=== PATIENT | male | born 1955 | race Caucasian/White ===

== ENCOUNTER 2025-09-08 09:54 | Outpatient (REF) | payer MEDICARE, SELFPAY ==
[2025-09-08 12:49] LABS: Carbamazepine Tegretol 11.4 mcg/mL (5.0-12.0)
[2025-09-11 11:03] LABS: Arsenic, Blood <3 mcg/L (<23); Lead, Blood <1.0 mcg/dL (<3.5); Mercury, Blood <4 mcg/L (<=10)
== END 2025-09-08 09:55 | disposition home or self-care (01) ==
LOC: HO.LAB 09:54
PROVIDERS: PCP Internal Medicine; Visit Provider Nurse Practitioner
DX: G40.909 Epilepsy, unspecified, not intractable, without status epilepticus (principal); R26.89 Other abnormalities of gait and mobility; R41.3 Other amnesia; W19.XXXA Unspecified fall, initial encounter
CPT/HCPCS: 36415; 80156; 82175; 83655; 83825; 99212

== ENCOUNTER 2025-09-08 09:54 | Outpatient (AMB) | payer MEDICARE, SELFPAY ==
--- NOTE | 2025-09-08 10:04 | A.OFFVIS_ITS ---
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 I was previously following him at [facility] for several neurological concerns. His primary concerns had included memory difficulties, brief staring episodes, dizziness, difficulty with the balance, urinary incontinence, memory changes, and decreased physical stamina. Memory: Overall, this is his most pressing concern. He notes that over the course of the last 1-2 years he has noticed a decline in his memory. He gives examples of forgetting his grandchildren's names from time to time and difficulty with planning, initiating a task, or problem solving. His has also noticed some changes in behavior with Ronnie becoming more agitated much quicker. 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 He has been using his CPAP nightly and overall reports that his sleep is generally pretty good. He does have an upcoming appointment with the memory clinic at [facility] on 12/16/2024. Balance: Reports some difficulty with balance and has had some falls within the last few months. He denies tripping on things but more so loses his footing. He can sometimes feel a sense of wooziness. He does have history of some sensory deficits to the bilateral lower extremities though an EMG completed in November of 2023 showed no definite nerve conduction study evidence of a large fiber sensory motor polyneuropathy affecting the lower extremities. It was however difficult to exclude an axonal polyneuropathy in the setting of a bilateral absent superficial peroneal sensory response though findings can be age related. He continues to report some numbness and tingling to his feet and ankle area. Recent B12 was normal and recent A1c was within goal and patient is not diagnosis diabetic. Alcohol intake is only once per month. He does however work with several heavy metals which could play a role. He has not been tested for heavy metal exposures in the past. Seizures: He has not had any seizures since 2011. He is on carbamazepine 400 mg in the morning, 300 mg in the afternoon, and 400 mg in the evening. This was recently decreased from 400 mg t.i.d. due to some slightly elevated levels likely related to some weight loss. He tolerates medication well and has not had any further episodes of loss of consciousness, tonic-clonic movements, staring, or tongue biting during sleep. Prior workup: -B12 and TSH level from July 2025: Within normal limits -EMG study to the bilateral lower extremities November 2023: No definite nerve conduction study evidence of a large fiber sensory motor polyneuropathy affecting the lower extremities, although a very mild axonal polyneuropathy could not be completely excluded: Motor and sural sensory distal latencies and conduction velocities are within normal limits. (bilateral absent superficial peroneal sensory responses is a nondiagnostic finding and may represent expected age-related changes). -MRI of the brain without contrast 05/29/2023: No infarct or hemorrhage. Unremarkable MRI of the brain without contrast. -MRI of the cervical spine without contrast 06/28/2023: Multilevel degenerative changes greatest at C6 through C7 and C5 through C6. No abnormal signal within the cervical cord. -MRI of the lumbar spine without contrast 06/28/2023: Multilevel degenerative changes of the lumbar spine most pronounced at L3 through L4 and L5 through S1. Abnormal signal within the soft tissue surrounding L3 through L4 spinous processes as described which could be seen with Selden disease. Review of Systems Const All systems reviewed & are unremarkable except as noted in HPI and below Physical Exam Exam Exam: MOCA: MOCA total: Executive:02/01 Namin/3 Attention:04/04 Language:12/30 Abstraction:2 Delayed recall:01/01 Orientation:04/04 Vital Signs: Last Vital Signs Pulse 73 09/08/25 10:05 Resp 17 09/08/25 10:05 BP 162/90 H 09/08/25 10:05 Pulse Ox 97 09/08/25 10:05 Oxygen Delivery Method Room Air 09/08/25 10:05 BMI result Body Mass Index 33.3 Const General: cooperative, healthy appearing, comfortable and no acute distress Nutritional Appearance: well nourished Orientation/consciousness: patient oriented x3 Limitations: no limitations HEENT Head: Yes normal to inspection and Yes normocephalic Eyes General: appearance normal, both eyes and all related structures Visual Nava: normal visual nava by confrontation Alignment and Position: alignment normal Periorbital: periorbital findings normal Eyelids: Yes eyelids normal Conjunctivae: conjunctivae normal Sclerae: sclerae normal Neuro General: patient oriented x3 and tone normal Cranial nerves: Yes CN's II-XII intact bilaterally and Yes Facial sensation intact/muscles of mastication intact Cognition (Neuro): normal cognition Gait exam (Neuro): Antalgic gait present and Other gait observations present (Slight hunching of the hips) Motor exam (neuro): 5/5 motor strength present throughout and no tremor noted Sensory Exam: sensory level loss detected and Abnormal lower extremity sensory exam (BLE loss of vibratory sensation below level of the ankle) Deep tendon reflexes (DTR's): Right triceps reflex intensity grade: 2+, Left triceps reflex intensity grade: 2+, Rt Biceps (C5, C6): 2+, Left biceps reflex intensity grade: 2+, Right brachioradialis reflex intensity grade: 2+, Left brachioradialis reflex intensity grade: 2+, Right patellar reflex intensity grade: 3+, Left patellar reflex intensity grade: 3+, Right ankle reflex intensity grade: 3+ and Left ankle reflex intensity grade: 3+ Romberg Test: Negative Pupils: Normal pupillary reactivity/response: bilateral Psych Appearance: grossly normal Mental Status: mental status grossly normal Speech and movement: Normal speech and movement present and Clear speech present Affect: normal affect Attitude: cooperative Thought process: Normal thought process present Thought content: Normal thought content present Insight: Good insight present (Psych) Judgement: Good judgement present (Psych) Assessment & Plan Assessment & Plan (1) Memory change: Code(s): R41.3 - Other amnesia Category: Medical (2) Seizure disorder: Code(s): G40.909 - Epilepsy, unspecified, not intractable, without status epilepticus Category: Medical (3) Imbalance: Code(s): R26.89 - Other abnormalities of gait and mobility Category: Medical (4) Falls: Code(s): W19.XXXA - Unspecified fall, initial encounter Category: Medical Plan Ronnie is a 70-year-old male patient with a past medical history of generalized seizures, Britt's esophagus, gout, headaches, hypercholesterolemia, hypertension, nephrolithiasis, obesity, and sleep apnea with the use of a CPAP machine presenting to the clinic for a follow up visit and to reestablish care with myself. He has a few primary concerns including difficulty with memory and some imbalance. His seizures which we follow him for are well-controlled and his bladder concerns have completely resolved with a urological procedure (Uro Lift procedure). His primary concern is his memory today. We did perform a [place] score today which was . His B12 TSH levels were normal. We will proceed with an MRI of the brain with and without contrast as his father does have a history of brain tumor in his memory has been still further declining in his opinion. We will include contrast of the imaging to look for discrete lesions with his family history and seizure history provided his last MRI brain did no tinclude contrast. -MRI brain with and without contrast -Carbamazepine level -Follow-up after MRI -Emcouraged to keep appointment with memory clinic at [facility] for now Orders: Orders MR head/brain wo/w con 09/08/25 G40.909 - Epilepsy, unspecified, not intractable, without status epilepticus, R26.89 - Other abnormalities of gait and mobility, R41.3 - Other amnesia, W19.XXXA - Unspecified fall, initial encounter Carbamazepine Tegretol 09/08/25 G40.909 - Epilepsy, unspecified, not intractable, without status epilepticus, R26.89 - Other abnormalities of gait and mobility, R41.3 - Other amnesia, W19.XXXA - Unspecified fall, initial encounter Heavy Metals Screen Blood 09/08/25 G40.909 - Epilepsy, unspecified, not intractable, without status epilepticus, R26.89 - Other abnormalities of gait and mobility, R41.3 - Other amnesia, W19.XXXA - Unspecified fall, initial encounter Coding Level of Care Code Est Pt Level 4 (57983) Diagnoses Memory change R41.3 Seizure disorder G40.909 Imbalance R26.89 Falls W19.XXXA
[2025-09-08 10:05] VITALS: BP 162/90; PULSE 73; RESP 17; O2SAT 97; BMI 33.3
--- OUTSIDE RECORDS SUMMARY | 2025-09-08 11:22 | XMS_ITS ---
Author Name [facility] Organization Unknown History of Medication Use Medication Directions Dispensed Refills Start Date End Date Status EpiPen 2-Braxton 0.3 mg/0.3 mL injection, auto-injector Take 1 auto by injection route as needed. 5 active methylprednisolone 4 mg tablets in a dose pack Take 1 dose pk by oral route. 5 active oxybutynin chloride 5 mg tablet Take 1 tablet every 8 hours by oral route as needed. 5 active allopurinol 100 mg tablet TAKE 2 TABLETS BY MOUTH EVERY DAY 5 active aspirin 81 mg tablet,delayed release Take 81 mg by mouth daily. 4 active meclizine 25 mg tablet Take 1 tablet (25 mg total) by mouth 3 (three) times a day as needed. 3 active clotrimazole-betametha sone 1 %-0.05 % topical cream Apply to affected area 2 times daily 3 024 completed atenolol 25 mg tablet Take 1 tablet (25 mg total) by mouth daily. 3 023 completed molnupiravir 200 mg capsule (EUA) Take 4 capsules (800 mg total) by mouth every 12 (twelve) hours for 5 days. Swallow capsule whole. Do NOT open, break, or crush. 2 022 completed triamcinolone acetonide 0.1 %-emollient comb.no.45 topical cream Apply topically 2 (two) times a day. 1 022 completed epinephrine 0.3 mg/0.3 mL injection, auto-injector Inject 0.3 mL (0.3 mg total) into the muscle once for 1 dose. 1 021 completed warfarin 1 mg tablet Take 7 tabs daily or as directed by physician 7 020 completed atenolol 100 mg tablet TAKE 1 TABLET BY MOUTH EVERY DAY 025 active methylprednisolone 4 mg tablets in a dose pack TAKE DIRECTED 025 completed nystatin 100,000 unit/gram topical powder APPLY TO AFFECTED AREA DAILY 025 active carbamazepine ER 400 mg tablet,extended release,12 hr TAKE 1 TABLET BY MOUTH THREE TIMES A DAY 024 completed aspirin 81 mg chewable tablet Chew 81 mg by mouth. 024 completed amoxicillin 500 mg tablet TAKE 4 TABS ONE HOUR PRIOR TO DENTAL APPOINTMENT 024 completed atenolol 50 mg tablet TAKE 1 TABLET BY MOUTH EVERY DAY 023 completed celecoxib 200 mg capsule TAKE 1 TABLET BY MOUTH EVERY DAY 023 completed docusate sodium 100 mg capsule TAKE 1 CAPSULE BY MOUTH TWICE A DAY DIRECTED MEDICATION TO BE STARTED AFTER SURGERY 023 completed Eliquis 2.5 mg tablet TAKE 1 TABLET BY MOUTH TWO TIMES A DAY 023 completed hydromorphone 2 mg tablet TAKE 1 TO 2 TABLETS BY MOUTH EVERY 4 HOURS NEEDED FOR SEVERE PAIN 023 completed pantoprazole 40 mg tablet,delayed release 1R BY MOUTH EVERY DAY RX FOR AFTER SURGERY 023 completed sulconazole 1 % topical cream Apply TO affected AREA EVERY DAY FOR 2 WEEKS THEN NEEDED 023 completed lisinopril 20 mg tablet Take 20 mg by mouth daily. 023 completed allopurinol 100 mg tablet TAKE 2 TABLETS BY MOUTH EVERY DAY active amlodipine 10 mg tablet TAKE 1 TABLET BY MOUTH EVERY DAY active amlodipine 10 mg tablet TAKE 1 TABLET BY MOUTH EVERY DAY active amoxicillin 500 mg tablet TAKE 4 TABS ONE HOUR PRIOR TO DENTAL APPOINTMENT active atenolol 100 mg tablet TAKE 1 TABLET BY MOUTH EVERY DAY active carbamazepine 200 mg tablet TAKE 2 TABLET BY MOUTH 3 TIMES A DAY active carbamazepine 200 mg tablet TAKE 2 TABLET BY MOUTH 3 TIMES A DAY active cephalexin 500 mg capsule TAKE 1 CAPSULE BY MOUTH THREE TIMES A DAY FOR 3 DAYS active cephalexin 500 mg capsule TAKE 1 CAPSULE BY MOUTH THREE TIMES A DAY FOR 3 DAYS active epinephrine 0.3 mg/0.3 mL injection, auto-injector INJECT 1 PEN INTRAMUSCULARLY ONCE FOR 1 DOSE FOR ANAPHYLACTIC REACTION active losartan 25 mg tablet TAKE 1 TABLET BY MOUTH EVERY DAY active losartan 25 mg tablet TAKE 1 TABLET BY MOUTH EVERY DAY active losartan 50 mg tablet Take 1 tablet ever y day by oral route. active nystatin 100,000 unit/gram topical powder APPLY TO AFFECTED AREA DAILY active omeprazole 20 mg capsule,delayed release TAKE 1 CAPSULE BY MOUTH TWICE A DAY active omeprazole 20 mg capsule,delayed release active oxybutynin chloride 5 mg tablet TAKE 1 TABLET BY MOUTH EVERY 8 HOURS NEEDED active phenazopyridine 200 mg tablet TAKE 1 TABLET BY MOUTH THREE TIMES A DAY active phenazopyridine 200 mg tablet TAKE 1 TABLET BY MOUTH THREE TIMES A DAY active simvastatin 40 mg tablet TAKE 1 TABLET BY MOUTH EVERY DAY IN THE EVENING active simvastatin 40 mg tablet TAKE 1 TABLET BY MOUTH EVERY DAY IN THE EVENING active tamsulosin 0.4 mg capsule TAKE 1 CAPSULE BY MOUTH DAILY 30 MINUTES AFTER DINNER active tamsulosin 0.4 mg capsule TAKE 1 CAPSULE BY MOUTH DAILY 30 MINUTES AFTER DINNER active tramadol 50 mg tablet TAKE 1 TABLET BY MOUTH EVERY 6 HOURS NEEDED FOR 5 DAYS active tramadol 50 mg tablet TAKE 1 TABLET BY MOUTH EVERY 6 HOURS NEEDED FOR 5 DAYS active Allergies Allergen Reaction Severity Comment Documented Date Source Statu s CODEINE [facility] VENOM-HONEY BEE [facility] Problems Problem Status Onset Date Problem Type Date of Resolution Source Allergic reaction to bee sting active 2025-05-08 ProblemAct [facility] Hypertensive disorder active 2020-04-09 ProblemAct [facility] Body mass index 30+ - obesity active 2023-02-01 ProblemAct [facility] Calcific tendinitis of right ankle active 2024-01-18 ProblemAct [facility] Osteoarthritis of bilateral hip joints active 2022-09-29 ProblemAct [facility] Benign prostatic hyperplasia with outflow obstruction active 2024-12-31 ProblemAct [facility] Hypercholesterolemia active 2020-04-09 ProblemAct [facility] Seasonal allergy active 2025-05-05 ProblemAct C T[facility] Seizure disorder active 2012-04-09 ProblemAct C T_[facility] Barretts esophagus with dysplasia active 2020-04-09 ProblemAct [facility] Chronic gouty arthritis active 2020-04-09 ProblemAct [facility] Obstructive sleep apnea syndrome active 2020-04-09 ProblemAct [facility] Kidney stone active 2020-04-09 ProblemAct [facility] Prostate specific antigen above reference range active 2024-10-15 ProblemAct [facility] Incomplete emptying of urinary bladder active 2025-02-26 ProblemAct [facility] Kidney stone active 2025-04-04 ProblemAct [facility] Spasm of urinary bladder active 2025-02-17 ProblemAct [facility] Simple renal cyst active 2025-07-07 ProblemAct [facility] Benign prostatic hyperplasia with outflow obstruction active 2024-10-10 ProblemAct [facility] Urge incontinence of urine active 2025-04-04 ProblemAct [facility] Immunizations Vaccine Date Source Lot Number Status SARS-COV-2 (COVID-19) vaccin e, mRNA, spike protein, LNP, preservative free, 100 mcg/0.5mL dose 02/08/2021 [facility] completed SARS-COV-2 (COVID-19) vaccin e, mRNA, spike protein, LNP, preservative free, 100 mcg/0.5mL dose 02/08/2021 [facility] completed SARS-COV-2 (COVID-19) vaccin e, mRNA, spike protein, LNP, preservative free, 100 mcg/0.5mL dose 02/08/2021 [facility] completed SARS-COV-2 (COVID-19) vaccin e, mRNA, spike protein, LNP, preservative free, 100 mcg/0.5mL dose 01/08/2021 [facility] completed SARS-COV-2 (COVID-19) vaccin e, mRNA, spike protein, LNP, preservative free, 100 mcg/0.5mL dose 01/08/2021 [facility] completed SARS-COV-2 (COVID-19) vaccin e, mRNA, spike protein, LNP, preservative free, 100 mcg/0.5mL dose 01/08/2021 [facility] completed SARS-COV-2 (COVID-19) vaccin e, mRNA, spike protein, LNP, preservative free, 100 mcg/0.5mL dose 01/08/2021 [facility] completed tetanus toxoid, reduced diph theria toxoid, and acellular pertussis vaccine, adsorbed 12/22/2016 [facility] [id number] completed tetanus toxoid, reduced diph theria toxoid, and acellular pertussis vaccine, adsorbed 12/22/2016 [facility] [id number] completed tetanus toxoid, reduced diph theria toxoid, and acellular pertussis vaccine, adsorbed 12/22/2016 [facility] [id number] completed tetanus toxoid, reduced diph theria toxoid, and acellular pertussis vaccine, adsorbed 12/22/2016 [facility] [id number] completed zoster vaccine, live 12/22/2016 [facility] UNK comp leted zoster vaccine, live 12/22/2016 [facility] UNK comp leted zoster vaccine, live 12/22/2016 [facility] UNK comp leted pneumococcal polysaccharide vaccine, 23 valent 04/07/2012 [facility] [id number] completed pneumococcal polysaccharide vaccine, 23 valent 04/07/2012 [facility] [id number] completed pneumococcal polysaccharide vaccine, 23 valent 04/07/2012 [facility] [id number] completed pneumococcal polysaccharide vaccine, 23 valent 04/07/2012 [facility] [id number] completed diphtheria and tetanus toxoi ds, adsorbed for pediatric use 09/15/2007 [facility] UNK completed diphtheria and tetanus toxoi ds, adsorbed for pediatric use 09/15/2007 [facility] UNK completed diphtheria and tetanus toxoi ds, adsorbed for pediatric use 09/15/2007 [facility] UN[facility] completed diphtheria and tetanus toxoi ds, adsorbed for pediatric use 05/03/1998 [facility] completed diphtheria and tetanus toxoi ds, adsorbed for pediatric use 05/03/1998 [facility] UN[facility] completed diphtheria and tetanus toxoi ds, adsorbed for pediatric use 05/03/1998 [facility] UN[facility] completed diphtheria and tetanus toxoi ds, adsorbed for pediatric use 05/03/1998 [facility] UNK completed Encounters Encounter Type Encounter Reason Primary Diagnosis Location Date Ambulatory [facility] 07/08/2025 Ambulatory [facility] 07/08/2025 Ambulatory [facility] 03/31 Ambulatory [facility] 03/2025 Ambulatory [facility] 02/2025 Ambulatory [facility] 03/06/2025 Ambulatory [facility] 03/06/2025 Ambulatory [facility] 0412/2024 Ambulatory [facility] 01/29 [facility]ulatory [facility] [place] 12/29/2024 Ambulatory [facility] 12/01 Ambulatory [facility] 11/04/2024 Ambulatory [facility] 09/30 Ambulatory [facility] 09/29 Ambulatory [facility] 09/29 Ambulatory [facility] 09/29 Ambulatory [facility] 09/29 Ambulatory [facility] 09/29 Ambulatory [facility] 09/29 Ambulatory [facility] 09/29 Ambulatory [facility] 09/29 Ambulatory [facility] 08/31 Ambulatory [facility] 04/21/2024 Ambulatory [facility], [facility] 04/05/2024 Ambulatory [facility] 03/09/2024 Care Team Organization Name Specialty Phone Email Start Date End [facility] 11/08 [facility] 06/05/2024 [facility] 04/18/[address] [place] [address] [facility] 2022 06/17/2024
--- OUTSIDE RECORDS SUMMARY | 2025-09-08 11:22 | XMS_ITS | Clinical Summary ---
Author Organization [facility] Address [address] [place] [address] Care Team Providers Care School Bus Aide Name Role Phone Cresencio Barbosa MD Primary Care Provider [phone] Surgical History Surgery Date Site/Laterality Comments SHOULDER SURGERY PROCEDURE:SHOULDER SURGERY CHOLECYSTECTOMY PROCEDURE:CHOLECYSTECTOMY JOINT REPLACEMENT PROCEDURE:JOINT REPLACEMENT OTHER SURGICAL HISTORY PROCEDURE:2018 OTHER SURGICAL HISTORY 2018 PROCEDURE:Coronary angioplasty ( Negative ) Medical History Medical History Date Comments Hypertension DX:Hypertension Gout DX:Gout Apnea DX:Apnea High cholesterol DX:High cholest jose alberto Seizures (CMS/HCC V24, CMS/HCC V28) DX:Seizures (HCC) Sleep apnea DX:Sleep apnea Obesity DX:Obesity Family History Medical History Relation Name Comments Diabetes Brother Heart disease Brother Hypertension Brother Cancer Father Diabetes Mother Relation Name Status Comments Brother Father Mother Social History Tobacco Use Types Packs/Day Years Used Date Smoking Tobacco: Never Smokeless Tobacco: Never Alcohol Use Standard Drinks/Week Comments Yes 0 (1 standard drink = 0.6 oz pur e alcohol) Sex and Gender Information Value Date Recorded Sex Assigned at Not on file Legal Sex Male 12:00 PM EST Gender Identity Not on file Sexual Orientation Not on file Obstetrics History Last Filed Vital Signs Vital Sign Reading Time Taken Comments Blood Pressure 154/80 02/01/2023 1:50 PM EDT Sitting Left arm Pulse 67 02/01/2023 1:50 PM EDT Temperature - - Respiratory Rate - - Oxygen Saturation - - Inhaled Oxygen Concentration - - Weight 118 kg (259 lb 12.8 oz) 02/01/2023 1:50 PM EDT Height 176.5 cm (5' 9.5 ) 12/12/2022 1: 08 PM EST Body Mass Index 37.82 12/12/2022 1:08 PM EST Plan of Treatment Health Maintenance Due Date Last Done Comments Colorectal Cancer Screening: Colonoscopy 1955 Pneumococcal Vaccine: 50+ Years (2 of 2 - PCV) 04/07/2013 04/07/2012 Zoster Vaccines (2 of 3) 02/16/2017 12/22/2016 Abdominal Aortic Aneurysm (AAA) Screen 10/03/2022 Cholesterol Screening (Lipid Panel) 10/03/2022 Falls Risk Assessment 10/03/2022 Hepatitis C Screening 10/03/2022 Social Influencers of Health Screening 10/03/2022 Hypertension/CHF/CAD Annual BMP Blood Test 10/06/2022 Depression Screening 10/30/2024 COVID-19 Vaccine (3 - 2024-2 6 season) 2025 02/08/2021, 01/08/2021 Influenza Vaccine (#1) 2025 DTaP,Tdap,and Td Vaccines (4 - Td or Tdap) 12/22/2026 12/22/2016, 09/15/2007, 05/03/1998 RSV Immunization Adult Patients (1 - 1-dose 75+ series) 2031 HIB Vaccines Aged Out No longer eligi ble based on patient's age to complete this topic HPV Vaccines Aged Out No longer eligi ble based on patient's age to complete this topic Hepatitis A Vaccines Aged Out No long er eligible based on patient's age to complete this topic Hepatitis B Vaccines Aged Out No long er eligible based on patient's age to complete this topic IPV Vaccines Aged Out No longer eligi ble based on patient's age to complete this topic MMR Vaccines Aged Out No longer eligi ble based on patient's age to complete this topic Meningococcal ACWY Vaccine Aged Out N o longer eligible based on patient's age to complete this topic Meningococcal B Vaccine Aged Out No l onger eligible based on patient's age to complete this topic RSV Immunization Patients Under 20 months Aged Out No longer eligible b ased on patient's age to complete this topic Varicella Vaccines Aged Out No longer eligible based on patient's age to complete this topic Care Teams School Bus Aide Relationship Specialty Start Date End Date Cresencio Barbosa MD [address] [place] [address] PCP - General Internal Medicine 01/02/17
--- OUTSIDE RECORDS SUMMARY | 2025-09-08 11:22 | XMS_ITS | Data Portability ---
Author Organization [facility], [id number] [place] Address [address] [place] [address] Assessment Encounter Date Assessment Date Assessment LastModified by Organization Details LastModified Time 12/31/2024 12/31/2024 Reminders 1. Have you reviewed all current prescriptions and noted which they have discontinued with the patient? Reviewed with patient 2. Have you asked the patient if they are experiencing any new or recurring issues with bladder control? Reviewed with patient 3. Have you asked the patient about their current physical fitness routine and goals? Reviewed with patient Not available 12/31/2024 16:37:24 Plan of Treatment Reminders Order Date Submit Date Provider Last Modified By Organization Details Last Modified Time Details Appointments Follow Up 2025 04:00P M Cresencio Barbosa MD Not available Not available Not available Lab BMP, serum or plasma 2024 025 [email or web address] [facility], [address] [place] [address], [id number], 07/15/2025 08:04:53 lipid panel, serum 2024 025 gferrentino [facility], [address] [place] [address], [id number], 07/15/2025 08:04:53 uric acid, serum or plasma 2024 025 MARCELA [facility], [address] [place] [address], [id number], 08/17/2025 08:06:42 carbama zepine- 10,11-e poxide, serum 2024 025 MARCELA [facility] (Centralized Electronic Ordering - All Locations), Patient Can Go To The Location Of Their Choice, 01/17/2025 12:05:51 noninva sive colorec arron cancer DNA + occult blood screeni ng, QL, stool 2024 [facility], [address], [address], [place], [address], 04/02/2025 08:29:08 uric acid, serum or plasma 2024 025 MARCELA [facility] (Centralized Electronic Ordering - All Locations), Patient Can Go To The Location Of Their Choice, 01/17/2025 12:05:53 CBC w/ auto diff 2024 025 MARCELA [facility] (Centralized Electronic Ordering - All Locations), Patient Can Go To The Location Of Their Choice, 01/17/2025 12:05:48 CMP, serum or plasma 2024 025 MARCELA [facility] (Centralized Electronic Ordering - All Locations), Patient Can Go To The Location Of Their Choice, 01/17/2025 12:05:49 lipid panel, serum 2024 025 MARCELA [facility] (Centralized Electronic Ordering - All Locations), Patient Can Go To The Location Of Their Choice, 01/17/2025 12:05:50 TSH, ultra-s ensitiv e, serum 2024 025 MARCELA [facility] (Centralized Electronic Ordering - All Locations), Patient Can Go To The Location Of Their Choice, 01/17/2025 12:05:52 CMP, serum or plasma 2023 024 MARCELA [facility] (Centralized Electronic Ordering - All Locations), Patient Can Go To The Location Of Their Choice, 06/16/2024 08:06:39 urinaly sis, complet e 2023 024 MARCELA [facility] (Centralized Electronic Ordering - All Locations), Patient Can Go To The Location Of Their Choice, [id number] 06/16/2024 08:06:39 CBC w/ auto diff 2023 024 MARCELA [facility] (Centralized Electronic Ordering - All Locations), Patient Can Go To The Location Of Their Choice, [id number] 06/16/2024 08:06:38 Referral None recorde d. Procedures None recorde d. Surgeries None recorde d. Imaging electro cardiog celina 2024 025 [id number], [address] [place], [address], 01/02/2025 23:43:17 Medication Orders None recorde d. Patient TargetsNo targets recorded. Patient Instructions Encounter Date Encounter Id Patient Instructions Last Modified By Organization Details Last Modified Time 12/31/2024 [id number] Cologuard After Visit Summary Not available 12/31/2024 16:38:32 well visit, over 65: care instructions Not available 12/31/2024 16:38:32 preventing falls : care instructions Not available 12/31/2024 16:38:32 advance directiv es: care instructions Not available 12/31/2024 16:38:32 To promote good health please follow these recommendations: Diet, Physical Activity and Healthy Weight: -Eat a diet low in trans and saturated fats and high in fiber, fruits and vegetables -Take 9001-0375 mg of calcium through diet and supplements -Engage in regular physical activity and weight bearing exercise -Aim to achieve and maintain ideal body mass index Tobacco and Alcohol Use: -Don't smoke or use other tobacco products -Avoid excessive alcohol intake Medications: -If you use any medications (prescriptions, qssx-nek-bjwqrps, supplements, herbal), always do so as directed by your health care provider -Avoid misuse of any substances in a manner that is not in accordance with appropriate use Safety: -Use seat belts whenever in the car -Use sunscreen regularly to reduce the risk of skin cancer -Test smoke detectors and CO detectors every 6 months -Remove loose rugs and use hand rails on steps and in bath Cognition: -Being intellectually engaged may benefit the brain. Lots of activities can keep your mind active. For example, read books and magazines. Play games. Take or teach a class. Learn a new skill or hobby. Work or volunteer. -People who engage in meaningful activities, like volunteering or hobbies, say they feel happier and healthier. Vaccinations: -Get your yearly influenza vaccine and follow all immunization recommendations outlined in your personal wellness plan. To promote good health please follow these recommendations: Diet, Physical Activity and Healthy Weight: -Eat a diet low in trans and saturated fats and high in fiber, fruits and vegetables -Take 1288-5775 mg of calcium through diet and supplements -Engage in regular physical activity and weight bearing exercise -Aim to achieve and maintain ideal body mass index Tobacco and Alcohol Use: -Don't smoke or use other tobacco products -Avoid excessive alcohol intake Medications: -If you use any medications (prescriptions, pwct-jxw-liwcsuv, supplements, herbal), always do so as directed by your health care provider -Avoid misuse of any substances in a manner that is not in accordance with appropriate use Safety: -Use seat belts whenever in the car -Use sunscreen regularly to reduce the risk of skin cancer -Test smoke detectors and CO detectors every 6 months -Remove loose rugs and use hand rails on steps and in bath Cognition: -Being intellectually engaged may benefit the brain. Lots of activities can keep your mind active. For example, read books and magazines. Play games. Take or teach a class. Learn a new skill or hobby. Work or volunteer. -People who engage in meaningful activities, like volunteering or hobbies, say they feel happier and healthier. Vaccinations: -Get your yearly influenza vaccine and follow all immunization recommendations outlined in your personal wellness plan. [email or web address] Not available 12/31/2024 16:32:51 I personally spe nt more than 45 minutes today preparing the patient's chart, taking history and performing the exam, counseling, submitting medication refills and documenting in the EHR. This time excludes time spent on reviewing past medical history, family history and surgical history. As well as patient care team when performing the AWV service. Not available 12/31/2024 16:41:29 Reason for Referral None Reported. Results Created Date Observation Date Name Description Value Unit Range Abnormal Flag Note LastModifiedBy Organization Detail LastModifiedTime 06/15/20 24 06/16/2024 CBC WITH DIFFE RENTI AL/PL ATELE T WBC 4.8 x10e3 /uL 3.4-10 .8 normal Not Available [facility] ([facility]) [address] [place], [address], 06/16/2024 08:06:38 06/15/20 24 06/16/2024 CBC WITH DIFFE RENTI AL/PL ATELE T RBC 4.18 x10e6 /uL 4.14-5 .80 normal Not Available [facility] ([facility]) [address] [place], [address], 06/16/2024 08:06:38 06/15/2006/16/2024 CBC WITH DIFFE RENTI AL/PL ATELE T hemoglobin 12.8 g/dL 13.0-1 7.7 below low normal Not Available [facility] ([facility]) [address] [place], [address], 06/16/2024 08:06:38 06/15/2006/16/2024 CBC WITH DIFFE RENTI AL/PL ATELE T hematocrit 38.9 % 37.5-5 1.0 normal Not Available [facility] ([facility]) [address] [place], [address], 06/16/2024 08:06:38 06/15/2006/16/2024 CBC WITH DIFFE RENTI AL/PL ATELE T MCV 93 fL 79-97 normal Not Available [facility] ([facility]) [address] [place], [address], 06/16/2024 08:06:38 06/15/2006/16/2024 CBC WITH DIFFE RENTI AL/PL ATELE T MCH 30.6 pg 26.6-3 3.0 normal Not Available [facility] ([facility]) [address] [place], [address], 06/16/2024 08:06:38 06/15/20 24 06/16/2024 CBC WITH DIFFE RENTI AL/PL ATELE T MCHC 32.9 g/dL 31.5-3 5.7 normal Not Available [facility] ([facility]) [address] [facility], [place], [address], 06/16/2024 08:06:38 06/15/20 24 06/16/2024 CBC WITH DIFFE RENTI AL/PL ATELE T RDW 12.8 % 11.6-1 5.4 Not Available [facility] ([facility]) [address] [facility], [place], [address], 06/16/2024 08:06:38 06/15/20 24 06/16/2024 CBC WITH DIFFE RENTI AL/PL ATELE T platelets 191 x10e3 /uL 150-45 0 normal Not Available [facility] ([facility]) [address] [facility], [place], [address], 06/16/2024 08:06:38 06/15/20 24 06/16/2024 CBC WITH DIFFE RENTI AL/PL ATELE T neutrophils 58 % not estab. normal Not Available [facility] ([facility]) [address] [facility], [place], [address], 06/16/2024 08:06:38 06/15/20 24 06/16/2024 CBC WITH DIFFE RENTI AL/PL ATELE T lymphs 29 % not estab. normal Not Available [facility] ([facility]) [address] [facility], [place], [address], 06/16/2024 08:06:38 06/15/20 24 06/16/2024 CBC WITH DIFFE RENTI AL/PL ATELE T monocytes 9 % not estab. normal Not Available [facility] ([facility]) [address] [facility], [place], [address], 06/16/2024 08:06:38 06/15/20 24 06/16/2024 CBC WITH DIFFE RENTI AL/PL ATELE T eos 3 % not estab. normal Not Available [facility] ([facility]) [address] [facility], [place], [address], 06/16/2024 08:06:38 06/15/20 24 06/16/2024 CBC WITH DIFFE RENTI AL/PL ATELE T basos 1 % not estab. normal Not Available [facility] ([facility]) [address] [facility], [place], [address], 06/16/2024 08:06:38 06/15/20 24 06/16/2024 CBC WITH DIFFE RENTI AL/PL ATELE T immature cells [employer] Not Available [facility] ([facility]) [address] [facility], [place], [address], 06/16/2024 08:06:38 06/15/20 24 06/16/2024 CBC WITH DIFFE RENTI AL/PL ATELE T neutrophils (absolute) 2.8 x10e3 /uL 1.4-7. 0 normal Not Available [facility] ([facility]) [address] [place], [address], 06/16/2024 08:06:38 06/15/20 24 06/16/2024 CBC WITH DIFFE RENTI AL/PL ATELE T lymphs (absolute) 1.4 x10e3 /uL 0.7-3. 1 normal Not Available [facility] ([facility]) [address] [place], [address], 06/16/2024 08:06:38 06/15/20 24 06/16/2024 CBC WITH DIFFE RENTI AL/PL ATELE T monocytes(ab solute) 0.4 x10e3 /uL 0.1-0. 9 normal Not Available [facility] ([facility]) [address] [place], [address], 06/16/2024 08:06:38 06/15/20 24 06/16/2024 CBC WITH DIFFE RENTI AL/PL ATELE T eos (absolute) 0.2 x10e3 /uL 0.0-0. 4 normal Not Available [facility] ([facility]) [address] [facility], [place], [address], 06/16/2024 08:06:38 06/15/20 24 06/16/2024 CBC WITH DIFFE RENTI AL/PL ATELE T baso (absolute) 0.0 x10e3 /uL 0.0-0. 2 normal Not Available [facility] ([facility]) [address] [facility], [place], [address], 06/16/2024 08:06:38 06/15/20 24 06/16/2024 CBC WITH DIFFE RENTI AL/PL ATELE T immature granulocytes 0 % not estab. Not Available [facility] ([facility]) [address] [facility], [place], [address], 06/16/2024 08:06:38 06/15/20 24 06/16/2024 CBC WITH DIFFE RENTI AL/PL ATELE T immature grans (abs) 0.0 x10e3 /uL 0.0-0. 1 Not Available [facility] ([facility]) [address] [facility], [place], [address], 06/16/2024 08:06:38 06/15/20 24 06/16/2024 CBC WITH DIFFE RENTI AL/PL ATELE T NRBC [employer] Not Available [facility] ([facility]) [address] [facility], [place], [address], 06/16/2024 08:06:38 06/15/20 24 06/16/2024 CBC WITH DIFFE RENTI AL/PL ATELE T hematology comments: [employer] HEL[employer] Not Available [facility] ([facility]) [address] [facility], [place], [address], 06/16/2024 08:06:38 06/15/20 24 06/16/2024 COMP. METAB OLIC PANEL (14) glucose 96 mg/dL 70-99 normal Not Available [facility] ([facility]) [address] [facility] [place], [address], 06/16/2024 08:06:39 06/15/20 24 06/16/2024 COMP. METAB OLIC PANEL (14) BUN 16 mg/dL 8-27 normal Not Available [facility] ([facility]) [address] [facility] [place], [address], 06/16/2024 08:06:39 06/15/20 24 06/16/2024 COMP. METAB OLIC PANEL (14) creatinine 0.95 mg/dL 0.76-1 .27 normal Not Available [facility] ([facility]) [address] [facility] [place], [address], 06/16/2024 08:06:39 06/15/20 24 06/16/2024 COMP. METAB OLIC PANEL (14) eGFR 88 mL/mi n/1.7 3 >59 normal Not Available [facility] ([facility]) [address] [facility] [place], [address], 06/16/2024 08:06:39 06/15/20 24 06/16/2024 COMP. METAB OLIC PANEL (14) BUN/creatini ne ratio 17 10-24 normal Not Available [facility] ([facility]) [address] [place], [address], 06/16/2024 08:06:39 06/15/20 24 06/16/2024 COMP. METAB OLIC PANEL (14) sodium 142 mmol/ L 134-14 4 normal Not Available [facility] ([facility]) [address] [place], [address], 06/16/2024 08:06:39 06/15/20 24 06/16/2024 COMP. METAB OLIC PANEL (14) potassium 4.4 mmol/ L 3.5-5. 2 normal Not Available [facility] ([facility]) [address] [place], [address], 06/16/2024 08:06:39 06/15/20 24 06/16/2024 COMP. METAB OLIC PANEL (14) chloride 105 mmol/ L 96-106 normal Not Available [facility] ([facility]) [address] [place], [address], 06/16/2024 08:06:39 06/15/20 24 06/16/2024 COMP. METAB OLIC PANEL (14) carbon dioxide, total 24 mmol/ L 20-29 normal Not Available [facility] ([facility]) [address] [place], [address], 06/16/2024 08:06:39 06/15/20 24 06/16/2024 COMP. METAB OLIC PANEL (14) calcium 9.2 mg/dL 8.6-10 .2 normal Not Available [facility] ([facility]) [address] [place], [address], 06/16/2024 08:06:39 06/15/20 24 06/16/2024 COMP. METAB OLIC PANEL (14) protein, total 6.4 g/dL 6.0-8. 5 normal Not Available [facility] ([facility]) [address] [place], [address], 06/16/2024 08:06:39 06/15/20 24 06/16/2024 COMP. METAB OLIC PANEL (14) albumin 4.2 g/dL 3.9-4. 9 normal Not Available [facility] ([facility]) [address] [place], [address], 06/16/2024 08:06:39 06/15/20 24 06/16/2024 COMP. METAB OLIC PANEL (14) globulin, total 2.2 g/dL 1.5-4. 5 Not Available [facility] ([facility]) [address] [place], [address], 06/16/2024 08:06:39 06/15/20 24 06/16/2024 COMP. METAB OLIC PANEL (14) bilirubin, total 0.4 mg/dL 0.0-1. 2 normal Not Available [facility] ([facility]) [address] [facility] [place], [address], 06/16/2024 08:06:39 06/15/20 24 06/16/2024 COMP. METAB OLIC PANEL (14) alkaline phosphatase 84 IU/L 44-121 normal Not Available [facility]) [address] [facility] [place], [address], 06/16/2024 08:06:39 06/15/20 24 06/16/2024 COMP. METAB OLIC PANEL (14) AST (SGOT) 21 IU/L 0-40 normal Not Available [facility] ([facility]) [address] [facility] [place], [address], 06/16/2024 08:06:39 06/15/20 24 06/16/2024 COMP. METAB OLIC PANEL (14) ALT (SGPT) 21 IU/L 0-44 normal Not Available [facility] ([facility]) [address] [facility], [place], [address], 06/16/2024 08:06:39 06/15/20 24 06/16/2024 URINA LYSIS , COMPL ETE specific gravity 1.023 1.005- 1.030 normal Not Available [facility] ([facility]) [address] [facility] [place], [address], 06/16/2024 08:06:39 06/15/20 24 06/16/2024 URINA LYSIS , COMPL ETE pH 5.5 5.0-7. 5 normal Not Available [facility] ([facility]) [address] [facility] [place], [address], 06/16/2024 08:06:39 06/15/20 24 06/16/2024 URINA LYSIS , COMPL ETE urine-color YELLOW yellow Not Available [facility] ([facility]) [address] [facility], [place], [address], 06/16/2024 08:06:39 06/15/20 24 06/16/2024 URINA LYSIS , COMPL ETE appearance CLEAR clear Not Available [facility] ([facility]) [address] [facility], [place], [address], 06/16/2024 08:06:39 06/15/20 24 06/16/2024 URINA LYSIS , COMPL ETE WBC esterase NEGATI VE negati ve Not Available [facility] ([facility]) [address] [facility], [place], [address], 06/16/2024 08:06:39 06/15/20 24 06/16/2024 URINA LYSIS , COMPL ETE protein NEGATI VE negati ve/tra ce Not Available [facility] ([facility]) [address] [facility], [place], [address], 06/16/2024 08:06:39 06/15/20 24 06/16/2024 URINA LYSIS , COMPL ETE glucose NEGATI VE negati ve Not Available [facility] ([facility]) [address] [facility], [place], [address], 06/16/2024 08:06:39 06/15/20 24 06/16/2024 URINA LYSIS , COMPL ETE ketones NEGATI VE negati ve Not Available [facility] ([facility]) [address] [facility], [place], [address], 06/16/2024 08:06:39 06/15/20 24 06/16/2024 URINA LYSIS , COMPL ETE occult blood NEGATI VE negati ve Not Available [facility] ([facility]) [address] [place], [address], 06/16/2024 08:06:39 06/15/20 24 06/16/2024 URINA LYSIS , COMPL ETE bilirubin NEGATI VE negati ve Not Available [facility] ([facility]) [address] [place], [address], 06/16/2024 08:06:39 06/15/20 24 06/16/2024 URINA LYSIS , COMPL ETE urobilinogen ,semi-qn 0.2 mg/dL 0.2-1. 0 normal Not Available [facility] ([facility]) [address] [place], [address], 06/16/2024 08:06:39 06/15/20 24 06/16/2024 URINA LYSIS , COMPL ETE nitrite, urine NEGATI VE negati ve Not Available [facility] ([facility]) [address] [facility], [place], [address], 06/16/2024 08:06:39 06/15/20 24 06/16/2024 URINA LYSIS , COMPL ETE microscopic examination COMMEN T Micro scopi c follo ws if indic ated. Not Available [facility] ([facility]) [address] [facility], [place], [address], 06/16/2024 08:06:39 06/15/20 24 06/16/2024 URINA LYSIS , COMPL ETE microscopic examination SEE BELOW: Micro scopi c was indic ated and was perfo rmed. Not Available [facility] ([facility]) [address] [facility], [place], [address], 06/16/2024 08:06:39 06/15/20 24 06/16/2024 URINA LYSIS , COMPL ETE WBC NONE SEEN /hpf 0 - 5 Not Available [facility] ([facility]) [address] [place], [address], 06/16/2024 08:06:39 06/15/20 24 06/16/2024 URINA LYSIS , COMPL ETE RBC NONE SEEN /hpf 0 - 2 Not Available [facility] ([facility]) [address] [facility], [place], [address], 06/16/2024 08:06:39 06/15/20 24 06/16/2024 URINA LYSIS , COMPL ETE epithelial cells (non renal) NONE SEEN /hpf 0 - 10 Not Available [facility] ([facility]) [address] [facility], [place], [address], 06/16/2024 08:06:39 06/15/20 24 06/16/2024 URINA LYSIS , COMPL ETE epithelial cells (renal) [employer] Not Available [facility] ([facility]) [address] [facility], [place], [address], 06/16/2024 08:06:39 06/15/20 24 06/16/2024 URINA LYSIS , COMPL ETE casts NONE SEEN /lpf none seen Not Available [facility] ([facility]) [address] [facility], [place], [address], 06/16/2024 08:06:39 06/15/20 24 06/16/2024 URINA LYSIS , COMPL ETE cast type [employer] Not Available [facility] ([facility]) [address] [facility], [place], [address], 06/16/2024 08:06:39 06/15/20 24 06/16/2024 URINA LYSIS , COMPL ETE crystals [employer] Not Available [facility] ([facility]) [address] [place], [address], 06/16/2024 08:06:39 06/15/20 24 06/16/2024 URINA LYSIS , COMPL ETE crystal type [employer] HELPER Not Available [facility]) [address] [place], [address], 06/16/2024 08:06:39 06/15/20 24 06/16/2024 URINA LYSIS , COMPL ETE mucus threads [employer] HEL[employer] Not Available [facility] ([facility]) [address] [facility], [place], [address], 06/16/2024 08:06:39 06/15/20 24 06/16/2024 URINA LYSIS , COMPL ETE bacteria NONE SEEN none seen/f ew Not Available [facility] ([facility]) [address] [facility], [place], [address], 06/16/2024 08:06:39 06/15/20 24 06/16/2024 URINA LYSIS , COMPL ETE yeast [employer] Not Available [facility] ([facility]) [address] [facility], [place], [address], 06/16/2024 08:06:39 06/15/20 24 06/16/2024 URINA LYSIS , COMPL ETE trichomonas [employer]PER Not Available [facility] ([facility]) [address] [facility], [place], [address], 06/16/2024 08:06:39 06/15/20 24 06/16/2024 URINA LYSIS , COMPL ETE comment [employer] HELPER Not Available [facility] ([facility]) [address] [facility], [place], [address], 06/16/2024 08:06:39 01/12/20 25 01/12/2025 CBC WITH DIFFE RENTI AL/PL ATELE T WBC 4.9 x10e3 /uL 3.4-10 .8 normal Not Available [facility] ([facility]) [address] [facility], [place], [address], 01/17/2025 12:05:48 01/12/20 25 01/12/2025 CBC WITH DIFFE RENTI AL/PL ATELE T RBC 4.42 x10e6 /uL 4.14-5 .80 normal Not Available [facility] ([facility]) [address] [facility], [place], [address], 01/17/2025 12:05:48 01/12/20 25 01/12/2025 CBC WITH DIFFE RENTI AL/PL ATELE T hemoglobin 13.5 g/dL 13.0-1 7.7 normal Not Available [facility] ([facility]) [address] [facility], [place], [address], 01/17/2025 12:05:48 01/12/20 25 01/12/2025 CBC WITH DIFFE RENTI AL/PL ATELE T hematocrit 41.3 % 37.5-5 1.0 normal Not Available [facility] ([facility]) [address] [facility], [place], [address], 01/17/2025 12:05:48 01/12/2001/12/2025 CBC WITH DIFFE RENTI AL/PL ATELE T MCV 93 fL 79-97 normal Not Available [facility] ([facility]) [address] [place], [address], 01/17/2025 12:05:48 01/12/20 25 01/12/2025 CBC WITH DIFFE RENTI AL/PL ATELE T MCH 30.5 pg 26.6-3 3.0 normal Not Available [facility] ([facility]) [address] [place], [address], 01/17/2025 12:05:48 01/12/2001/12/2025 CBC WITH DIFFE RENTI AL/PL ATELE T MCHC 32.7 g/dL 31.5-3 5.7 normal Not Available [facility] ([facility]) [address] [place], [address], 01/17/2025 12:05:48 01/12/2001/12/2025 CBC WITH DIFFE RENTI AL/PL ATELE T RDW 12.9 % 11.6-1 5.4 Not Available [facility] ([facility]) [address] [place], [address], 01/17/2025 12:05:48 01/12/2001/12/2025 CBC WITH DIFFE RENTI AL/PL ATELE T platelets 218 x10e3 /uL 150-45 0 normal Not Available [facility] ([facility]) [address] [facility], [place], [address], 01/17/2025 12:05:48 01/12/20 25 01/12/2025 CBC WITH DIFFE RENTI AL/PL ATELE T neutrophils 55 % not estab. normal Not Available [facility] ([facility]) [address] [facility], [place], [address], 01/17/2025 12:05:48 01/12/20 25 01/12/2025 CBC WITH DIFFE RENTI AL/PL ATELE T lymphs 29 % not estab. normal Not Available [facility] ([facility]) [address] [facility], [place], [address], 01/17/2025 12:05:48 01/12/20 25 01/12/2025 CBC WITH DIFFE RENTI AL/PL ATELE T monocytes 10 % not estab. normal Not Available [facility] ([facility]) [address] [place], [address], 01/17/2025 12:05:48 01/12/20 25 01/12/2025 CBC WITH DIFFE RENTI AL/PL ATELE T eos 5 % not estab. normal Not Available [facility] ([facility]) [address] [facility], [place], [address], 01/17/2025 12:05:48 01/12/20 25 01/12/2025 CBC WITH DIFFE RENTI AL/PL ATELE T basos 1 % not estab. normal Not Available [facility] ([facility]) [address] [facility], [place], [address], 01/17/2025 12:05:48 01/12/20 25 01/12/2025 CBC WITH DIFFE RENTI AL/PL ATELE T immature cells [employer] Not Available [facility] ([facility]) [address] [facility], [place], [address], 01/17/2025 12:05:48 01/12/2001/12/2025 CBC WITH DIFFE RENTI AL/PL ATELE T neutrophils (absolute) 2.7 x10e3 /uL 1.4-7. 0 normal Not Available [facility] ([facility]) [address] [place], [address], 01/17/2025 12:05:48 01/12/20 25 01/12/2025 CBC WITH DIFFE RENTI AL/PL ATELE T lymphs (absolute) 1.4 x10e3 /uL 0.7-3. 1 normal Not Available [facility] ([facility]) [address] [place], [address], 01/17/2025 12:05:48 01/12/20 25 01/12/2025 CBC WITH DIFFE RENTI AL/PL ATELE T monocytes(ab solute) 0.5 x10e3 /uL 0.1-0. 9 normal Not Available [facility] ([facility]) [address] [place], [address], 01/17/2025 12:05:48 01/12/20 25 01/12/2025 CBC WITH DIFFE RENTI AL/PL ATELE T eos (absolute) 0.2 x10e3 /uL 0.0-0. 4 normal Not Available [facility] ([facility]) [address] [place], [address], 01/17/2025 12:05:48 01/12/20 25 01/12/2025 CBC WITH DIFFE RENTI AL/PL ATELE T baso (absolute) 0.1 x10e3 /uL 0.0-0. 2 normal Not Available [facility] ([facility]) [address] [place], [address], 01/17/2025 12:05:48 01/12/20 25 01/12/2025 CBC WITH DIFFE RENTI AL/PL ATELE T immature granulocytes 0 % not estab. Not Available [facility] ([facility]) [address] [facility], [place], [address], 01/17/2025 12:05:48 01/12/20 25 01/12/2025 CBC WITH DIFFE RENTI AL/PL ATELE T immature grans (abs) 0.0 x10e3 /uL 0.0-0. 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 METAB OLIC PANEL (14) glucose 101 mg/dL 70-99 above high normal Not Available [facility] ([facility]) [address] [facility], [place], [address], 01/17/2025 12:05:49 01/12/20 25 01/12/2025 COMP. METAB OLIC PANEL (14) BUN 15 mg/dL 8-27 normal Not Available [facility] ([facility]) [address] [facility], [place], [address], 01/17/2025 12:05:49 01/12/20 25 01/12/2025 COMP. METAB OLIC PANEL (14) creatinine 0.92 mg/dL 0.76-1 .27 normal Not Available [facility] ([facility]) [address], [place], [address], 01/17/2025 12:05:49 01/12/20 25 01/12/2025 COMP. METAB OLIC PANEL (14) eGFR 91 mL/mi n/1.7 3 >59 normal Not Available [facility] ([facility]) [address], [place], [address], 01/17/2025 12:05:49 01/12/20 25 01/12/2025 COMP. METAB OLIC PANEL (14) BUN/creatini ne ratio 16 10-24 normal Not Available [facility] ([facility]) [address] [place], [address], 01/17/2025 12:05:49 01/12/20 25 01/12/2025 COMP. METAB OLIC PANEL (14) sodium 139 mmol/ L 134-14 4 normal Not Available [facility] ([facility]) [address], [place], [address], 01/17/2025 12:05:49 01/12/20 25 01/12/2025 COMP. METAB OLIC PANEL (14) potassium 4.6 mmol/ L 3.5-5. 2 normal Not Available [facility] ([place] [facility]) [address] [facility] [place], [address], 01/17/2025 12:05:49 01/12/20 25 01/12/2025 COMP. METAB OLIC PANEL (14) chloride 101 mmol/ L 96-106 normal Not Available [facility] ([place] [facility]) [address] [facility] [place], [address], 01/17/2025 12:05:49 01/12/20 25 01/12/2025 COMP. METAB OLIC PANEL (14) carbon dioxide, total 23 mmol/ L 20-29 normal Not Available [facility] ([place] [facility]) [address] [facility] [place], [address], 01/17/2025 12:05:49 01/12/20 25 01/12/2025 COMP. METAB OLIC PANEL (14) calcium 9.1 mg/dL 8.6-10 .2 normal Not Available [facility] ([facility]) [address] [place], [address], 01/17/2025 12:05:49 01/12/20 25 01/12/2025 COMP. METAB OLIC PANEL (14) protein, total 6.8 g/dL 6.0-8. 5 normal Not Available [facility] ([facility]) [address] [place], [address], 01/17/2025 12:05:49 01/12/20 25 01/12/2025 COMP. METAB OLIC PANEL (14) albumin 4.3 g/dL 3.9-4. 9 normal Not Available [facility] ([facility]) [address] [place], [address], 01/17/2025 12:05:49 01/12/20 25 01/12/2025 COMP. METAB OLIC PANEL (14) globulin, total 2.5 g/dL 1.5-4. 5 Not Available [facility] ([facility]) [address] [place], [address], 01/17/2025 12:05:49 01/12/20 25 01/12/2025 COMP. METAB OLIC PANEL (14) bilirubin, total 0.5 mg/dL 0.0-1. 2 normal Not Available [facility] ([facility]) [address] [place], [address], 01/17/2025 12:05:49 01/12/20 25 01/12/2025 COMP. METAB OLIC PANEL (14) alkaline phosphatase 97 IU/L 44-121 normal Not Available [facility] ([facility]) [address] [place], [address], 01/17/2025 12:05:49 01/12/20 25 01/12/2025 COMP. METAB OLIC PANEL (14) AST (SGOT) 23 IU/L 0-40 normal Not Available [facility] ([facility]) [address] [place], [address], 01/17/2025 12:05:49 01/12/20 25 01/12/2025 COMP. METAB OLIC PANEL (14) ALT (SGPT) 23 IU/L 0-44 normal Not Available [facility] ([facility]) [address] [place], [address], 01/17/2025 12:05:49 01/12/20 25 01/12/2025 LIPID PANEL cholesterol, total 200 mg/dL 100-19 9 above high normal Not Available [facility] ([facility]) [address] [place], [address], 01/17/2025 12:05:50 01/12/20 25 01/12/2025 LIPID PANEL triglyceride s 112 mg/dL 0-149 normal Not Available [facility] ([facility]) [address] [place], [address], 01/17/2025 12:05:50 01/12/20 25 01/12/2025 LIPID PANEL HDL cholesterol 64 mg/dL >39 normal Not Available [facility] ([facility]) [address] [place], [address], 01/17/2025 12:05:50 01/12/20 25 01/12/2025 LIPID PANEL VLDL cholesterol paulino 20 mg/dL 5-40 Not Available [facility] ([facility]) [address] [place], [address], 01/17/2025 12:05:50 01/12/20 25 01/12/2025 LIPID PANEL LDL chol calc ([facility]) 116 mg/dL 0-99 above high normal Not Available [facility] ([facility]) [address] [place], [address], 01/17/2025 12:05:50 01/12/2001/12/2025 LIPID PANEL 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 It has not been clear ed or appro gisela by the Food and Drug Admin istra tion. Not Available [facility] ([facility]) [address] [facility], [place], [address], 01/17/2025 12:05:51 01/12/20 25 01/12/2025 TSH TSH 0.648 uIU/m L 0.450- 4.500 normal Not Available [facility] ([facility]) [address] [place], [address], 01/17/2025 12:05:52 01/12/20 25 01/12/2025 URIC ACID uric acid 5.0 mg/dL 3.8-8. 4 normal Thera ellie dowling t for gout patie nts: <6.0 Not Available [facility] ([facility]) [address] [place], [address], 01/17/2025 12:05:53 08/16/2008/17/2025 BASIC METAB OLIC PANEL (8) glucose 96 mg/dL 70-99 normal Not Available [facility] ([facility]) [address] [place], [address], 08/17/2025 08:06:41 08/16/20 25 08/17/2025 BASIC METAB OLIC PANEL (8) BUN 15 mg/dL 8-27 normal Not Available [facility] ([facility]) [address] [facility] [place], [address], 08/17/2025 08:06:41 08/16/20 25 08/17/2025 BASIC METAB OLIC PANEL (8) creatinine 0.96 mg/dL 0.76-1 .27 normal Not Available [facility] ([facility]) [address] [facility] [place], [address], 08/17/2025 08:06:41 08/16/2008/17/2025 BASIC METAB OLIC PANEL (8) eGFR 86 mL/mi n/1.7 3 >59 normal Not Available [facility] ([facility]) [address] [facility] [place], [address], 08/17/2025 08:06:41 08/16/2008/17/2025 BASIC METAB OLIC PANEL (8) BUN/creatini ne ratio 16 10-24 normal Not Available [facility] ([facility]) [address] [place], [address], 08/17/2025 08:06:41 08/16/20 25 08/17/2025 BASIC METAB OLIC PANEL (8) sodium 140 mmol/ L 134-14 4 normal Not Available [facility] ([facility]) [address] [place], [address], 08/17/2025 08:06:41 08/16/2008/17/2025 BASIC METAB OLIC PANEL (8) potassium 4.3 mmol/ L 3.5-5. 2 normal Not Available [facility] ([facility]) [address] [place], [address], 08/17/2025 08:06:41 08/16/20 25 08/17/2025 BASIC METAB OLIC PANEL (8) chloride 101 mmol/ L 96-106 normal Not Available [facility] ([facility]) [address] [place], [address], 08/17/2025 08:06:41 08/16/2008/17/2025 BASIC METAB OLIC PANEL (8) carbon dioxide, total 25 mmol/ L 20-29 normal Not Available [facility] ([facility]) [address] [place], [address], 08/17/2025 08:06:41 08/16/2008/17/2025 BASIC METAB OLIC PANEL (8) calcium 9.1 mg/dL 8.6-10 .2 normal Not Available [facility] ([facility]) [address] [place], [address], 08/17/2025 08:06:41 08/16/2008/17/2025 LIPID PANEL cholesterol, total 178 mg/dL 100-19 9 normal Not Available [facility] ([facility]) [address] [place], [address], 08/17/2025 08:06:42 08/16/2008/17/2025 LIPID PANEL triglyceride s 65 mg/dL 0-149 normal Not Available [facility] ([facility]) [address] [place], [address], 08/17/2025 08:06:42 08/16/20 25 08/17/2025 LIPID PANEL HDL cholesterol 73 mg/dL >39 normal Not Available [facility] ([facility]) [address] [place], [address], 08/17/2025 08:06:42 08/16/20 25 08/17/2025 LIPID PANEL VLDL cholesterol paulino 12 mg/dL 5-40 Not Available [facility] ([facility]) [address] [place], [address], 08/17/2025 08:06:42 08/16/20 25 08/17/2025 LIPID PANEL LDL chol calc ([facility]) 93 mg/dL 0-99 Not Available [facility] ([facility]) [address] [facility], [place], [address], 08/17/2025 08:06:42 08/16/2008/17/2025 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 4 normal Thera peuti c targe t for gout patie nts: <6.0 Not Available [facility] ([facility]) [address] [facility], [place], [address], 08/17/2025 08:06:42 08/07/2008/02/2024 US, kidne y No observ ation record ed. [facility] [address], [place], [address], 08/07/2024 16:52:28 08/12/2003/22/2022 US, renal No observ ation record ed. Not Available 08:46:24 08/12/2006/28/2023 MRI, cervi paulino spine , w/o contr ast No observ ation record ed. Not Available 08:47:54 08/12/2006/28/2023 MRI, lumba r spine , w/o contr ast No observ ation record ed. Not Available 08:55:45 10/09/2010/02/2024 polys omnog celina No observ ation record ed. [facility] [address], [place], [address], 10/11/2024 11:05:58 01/01/20 25 elect williams holm am No observ ation record ed. [email or web address], [place], [address], 12/31/2024 16:41:03 01/02/20 25 12/31/2024 garima holm am No observ ation record ed. DE QUEEN [email or web address] [address], [place], [address], 01/01/2025 15:50:36 Result Notes None recorded. Problems Name Problem SNOMED Code Status Onset Date Resolution Date Notes Provider Name and Address Organization Details Recorded Time Seizure disorder 588715006 Active 2011 Seizure disorder Not Available [facility] 4 01:31:27 Obstructi ve sleep apnea syndrome 67872961 Active 2019 Obstructi ve sleep apnea syndrome Not Available [facility] 4 01:31:28 Hypertens karly disorder 55728869 Active 2019 White coat syndrome with hypertens ion Not Available [facility] 4 01:31:28 Chronic gouty arthritis 05902845 Active 2019 Chronic idiopathi c gout of foot Cresencio Barbosa MD [address] [place] [address], [address] [place] [address], [phone] , [place] - [place] [facility] 4 08:29:42 Barretts esophagus with dysplasia 09493824280 97432 Active 2019 Britt's esophagus with dysplasia Not Available [facility] 4 01:31:27 Hyperchol esterolem ia 69227659 Active 2019 Hyperchol esterolem ia Cresencio Barbosa MD [address] [place] [address], [address] [place] [address], [place], [address] , [place] - [place] [facility] 4 08:29:30 Kidney stone 09210712 Active 2019 Nephrolit hiasis Not Available [facility] 4 01:31:28 Osteoarth ritis of bilateral hip joints 56935810981 9105 Active 2021 Osteoarth ritis of both hips Not Available [facility] 4 01:31:27 Body mass index 30+ - obesity 716920913 Active 2022 Obesity (BMI 30-39.9) Cresencio Barbosa MD [address] [place] [address], [address] [place] [address], [phone] , [place] - [place] [facility] 4 08:31:09 Calcific tendiniti s of right ankle 29956978330 9104 Active 2023 Cresencio Barbosa MD [address] [place] [address], [address] [place] [address], [phone] , [place] - [place] [facility] 4 08:48:20 Benign prostatic hyperplas ia with outflow obstructi on 253953757 Active 2024 Cresencio Barbosa MD [address] [place] [address], [address] [place] [address], [phone] , [place] - [place] [facility] 5 16:18:23 Seasonal allergy 789528577 Active 2024 Crystal Laviolette null, [place] - [place] [facility] 5 14:59:17 Allergic reaction to bee sting 869697047 Active 2024 Cresencio Barbosa MD [address] [place] [address], [phone] , [place] - [place] [facility] 5 15:50:14 Problem Notes None recorded. Procedures Surgical History Date Name Laterality Status Provider Name and Address Organization Details Recorded Time 025 AWV - male prevention plan completed Cresencio Barbosa MD [address] [place] [address], [phone], [place] - [place] [facility] 12/31/2024 16:36:53 025 Advance Care Planning Consultation completed Cresencio Barbosa MD [address] [place] [address], [phone], [place] - [place] [facility] 12/31/2024 16:37:12 025 AWV - safety evaluation completed Cresencio Barbosa MD [address] [place] [address], [phone], [place] - [place] [facility] 12/31/2024 16:37:00 024 Advance Care Planning Consultation completed [facility] 12/15/2023 08:07:35 024 AWV - safety evaluation completed [facility] 12/15/2023 08:07:35 024 AWV - male prevention plan completed [facility] 12/15/2023 08:07:35 prosthetic arthroplasty of hip completed Cresencio Barbosa MD [address] [place] [address], [address] [place] [address], [place], [address], [facility] 12/15/2023 08:34:15 partial repair of rotator cuff completed Cresencio Barbosa MD [address] [place] [address], [address] [place] [address], [place], [phone], [facility] 12/15/2023 08:34:42 cholecystectomy completed Cresencio Barbosa MD [address] [place] [address], [address] [place] [address], [place], [address], [place] [facility] 12/15/2023 08:35:12 Imaging Results None recorded. Procedure Notes None recorded. Medical Equipment None Reported. Allergies Allergen ID Allergen Name Allergen Category Reaction Reaction Severity Criticality Documentation Date Start Date Code Code System Note Provider Name and Address Organization Details Recorded Time 732134 codeine medicatio n Not available Not available Not available 02/24/20232016 2670 RxNorm Not Available [facility] 19:37:03 616955 honey bee venom environme nt Not available Not available Not available 02/24/20232020 12371 7 RxNorm React ion: Anaph ylaxi s, sever ity: Sever e Not Available [facility] 19:37:04 Medications Name Sig Start Date Stop Date Status Note LastModified by Organization Details LastModified Time losartan 50 mg tablet Take 1 tablet every day by oral route. active Not Available Not Available No t Available celecoxib 200 mg capsule TAKE 1 TABLET BY MOUTH EVERY DAY 04/13 completed Not Available Not Available Not Available atenolol 100 mg tablet TAKE 1 TABLET BY MOUTH EVERY DAY 07/08 completed Not Available Not Available Not Available phenazopyri dine 200 mg tablet TAKE 1 TABLET BY MOUTH THREE TIMES A DAY 12/31 completed Not Available Not Available Not Available lisinopril 20 mg tablet Take 20 mg by mouth daily. 12/12 completed Not Available Not Available Not Available atenolol 25 mg tablet Take 1 tablet (25 mg total) by mouth daily. 11/25 completed Not Available Not Available Not Available allopurinol 100 mg tablet TAKE 1 TABLETS BY MOUTH EVERY DAY active Not Available Not Available No t Available aspirin 81 mg tablet,danilo yed release Take 81 mg by mouth daily. 2023 active Not Available Not Available Not Avai lable tramadol 50 mg tablet TAKE 1 TABLET BY MOUTH EVERY 6 HOURS NEEDED FOR 5 DAYS active Not Available Not Available No t Available amoxicillin 500 mg tablet TAKE 4 TABS ONE HOUR PRIOR TO DENTAL APPOINTME NT 12/15 completed Not Available Not Available Not Available simvastatin 40 mg tablet TAKE 1 TABLET BY MOUTH EVERY DAY IN THE EVENING active Not Available Not Available No t Available carbamazepi ne ER 400 mg tablet,exte nded release,12 hr TAKE 1 TABLET BY MOUTH THREE TIMES A DAY 06/13 completed Not Available Not Available Not Available carbamazepi ne 200 mg tablet TAKE 2 TABLET BY MOUTH 3 TIMES A DAY active Not Available Not Available No t Available hydromorpho ne 2 mg tablet TAKE 1 TO 2 TABLETS BY MOUTH EVERY 4 HOURS NEEDED FOR SEVERE PAIN 04/13 completed Not Available Not Available Not Available tamsulosin 0.4 mg capsule TAKE 1 CAPSULE BY MOUTH DAILY 30 MINUTES AFTER DINNER 07/08 completed Not Available Not Available Not Available meclizine 25 mg tablet Take 1 tablet (25 mg total) by mouth 3 (three) times a day as needed. 2022 active Not Available Not Available Not Avai lable amlodipine 10 mg tablet TAKE 1 TABLET BY MOUTH EVERY DAY active Not Available Not Available No t Available cephalexin 500 mg capsule TAKE 1 CAPSULE BY MOUTH THREE TIMES A DAY FOR 3 DAYS 12/31 completed Not Available Not Available Not Available pantoprazol e 40 mg tablet,danilo yed release 1R BY MOUTH EVERY DAY RX FOR AFTER SURGERY 04/13 completed Not Available Not Available Not Available clotrimazol e-betametha sone 1 %-0.05 % topical cream Apply to affected area 2 times daily 12/13 completed Not Available Not Available Not Available losartan 25 mg tablet TAKE 1 TABLET BY MOUTH EVERY DAY 07/08 completed Not Available Not Available Not Available docusate sodium 100 mg capsule TAKE 1 CAPSULE BY MOUTH TWICE A DAY DIRECTED MEDICATIO N TO BE STARTED AFTER SURGERY 04/13 completed Not Available Not Available Not Available omeprazole 20 mg capsule,del ayed release TAKE 1 CAPSULE BY MOUTH TWICE A DAY active Not Available Not Available No t Available sulconazole 1 % topical cream Apply TO affected AREA EVERY DAY FOR 2 WEEKS THEN NEEDED 04/13 completed Not Available Not Available Not Available aspirin 81 mg chewable tablet Chew 81 mg by mouth. 12/25 completed Not Available Not Available Not Available nystatin 100,000 unit/gram topical powder APPLY TO AFFECTED AREA DAILY 07/08 completed Not Available Not Available Not Available warfarin 1 mg tablet Take 7 tabs daily or as directed by physician 04/09 completed Not Available Not Available Not Available methylpredn isolone 4 mg tablets in a dose pack TAKE DIRECTED PER PACKAGE DIRECTION S FOR 6 DAYS 07/08 completed Not Available Not Available Not Available oxybutynin chloride 5 mg tablet TAKE 1 TABLET BY MOUTH EVERY 8 HOURS NEEDED active Not Available Not Available No t Available atenolol 50 mg tablet TAKE 1 TABLET BY MOUTH EVERY DAY 04/13 completed Not Available Not Available Not Available triamcinolo ne acetonide 0.1 %-emollient comb.no.45 topical cream Apply topically 2 (two) times a day. 02/10 completed Not Available Not Available Not Available EpiPen 2-Braxton 0.3 mg/0.3 mL injection, auto-inject or Take 1 auto by injection route as needed. 2024 active Not Available Not Available Not Avai lable Eliquis 2.5 mg tablet TAKE 1 TABLET BY MOUTH TWO TIMES A DAY 04/13 completed Not Available Not Available Not Available molnupiravi r 200 mg capsule (EUA) Take 4 capsules (800 mg total) by mouth every 12 (twelve) hours for 5 days. Swallow capsule whole. Do NOT open, break, or crush. 05/10 completed Not Available Not Available Not Available Vitals Date Recorded Body height Body mass index (BMI) Body weight Heart rate Oxygen saturation Oxygen saturation in Arterial blood by Pulse oximetry Systolic And Diastolic Provider Name and Address Organization Details Last Updated DateTime 5 176.5 cm 38 kg/m2 438328. 31 g 60 /min 97 % 97 % 130/86 mm[Hg] Hector Richard [facility] 5 15:33:57 Date Recorded Systolic And Diastolic Provider Name and Address Organization Details Last Updated DateTime 02/23/2024 132/78 mm[Hg] Cresencio Barbosa MD [address] [place] [address], [address] [place] [address], [phone], [facility] 02/23/2024 08:21:15 Date Recorded Body height Body mass index (BMI) Body weight Oxygen saturation Oxygen saturation in Arterial blood by Pulse oximetry Heart rate Body temperature Provider Name and Address Organization Details Last Updated DateTime 4 176.5 cm 37.9 kg/m2 299940. 09 g 98 % 98 % 63 /min 98.1 [degF] Crystal [facility] 4 08:09:56 Date Recorded Body height Body mass index (BMI) Body weight Respiratory rate Heart rate Systolic And Diastolic Provider Name and Address Organization Details Last Updated DateTime 4 176.5 cm 37.3 kg/m2 916001. 65 g 18 /min 78 /min 136/80 mm[Hg] Cresencio Barbosa MD [address] [place] [address], [address] [place] [address], [phone], [facility] 4 08:20:20 Date Recorded Systolic And Diastolic Provider Name and Address Organization Details Last Updated DateTime 07/08/2025 152/88 mm[Hg] Cresencio Barbosa MD [address] [place] [address], [address] [place] [address], [phone], [facility] 07/08/2025 16:23:59 Date Recorded Body height Body mass index (BMI) Body weight Oxygen saturation Oxygen saturation in Arterial blood by Pulse oximetry Heart rate Provider Name and Address Organization Details Last Updated DateTime 176.5 cm 35.7 kg/m2 509716. 13 g 98 % 98 % 67 /min Padmini rowe [place] [facility] 16:10:37 Social History Question Answer Notes LastModified by Organizat ion Details LastModified Time Tobacco Smoking Status Former Smoker Hector vilchis, [place] - [place] [facility] 12/31/2024 15:35:18 Do You Have An Advance Directive? Yes Information not available 12/15/2023 Do You Wear A Helmet When Biking? No Information not available 12/15/2023 Are You Blind Or Do You Have Difficulty Seeing? No Information not available 12/15/2023 What Is Your Level Of Caffeine Consumption? Moderate Information not available 12/31/2024 Are You A Caregiver? No Information not available 12/15/2023 Are You Deaf Or Do You Have Serious Difficulty Hearing? No Information not available 12/15/2023 What Type Of Diet Are You Following? REGULAR Information not available 12/15/2023 What Is The Highest Grade Or Level Of School You Have Completed Or The Highest Degree You Have Received? [id number] Information not available 12/31/2024 Who Is Your Employer? [email or web address] Information not available 12/31/2024 How Many Days Of Moderate To Strenuous Exercise, Like A Brisk Walk, Did You Do In The Last 7 Days? 0 Information not available 12/31/2024 How Many Times Per Week Do You Exercise? 1-2 Times Per Week Information not available 12/31/2024 When Did You Quit Smoking? 16+yearssincelastlaith vivar Information not available 12/31/2024 Are There Any Guns Present In Your Home? No Information not available 12/31/2024 Do You Use Insect Repellent Routinely? No Information not available 12/15/2023 Where Do You Live? SingleLevelHouse Information not available 12/15/2023 How Often During The Past 4 Weeks Have You Been Bothered By Teeth Or Denture Problems? Never Information not available 12/15/2023 During The Past 4 Weeks, How Much Have You Been Bothered By Emotional Problems Such As Feeling Anxious, Depressed, Irritable, Sad, Or Downhearted And Blue? Not At All Information not available 12/15/2023 Are You Afraid Of Falling? No Information not available 12/15/2023 How Long Have You Lived There? 6 Information not available 12/15/2023 Do You Have A Medical Power Of Instrument Fitter? Yes Information not available 12/15/2023 What Was The Date Of Your Most Recent Tobacco Screening? 12/31/2024 Information not available 12/31/2024 How Many Children Do You Have? 3 Information not available 12/15/2023 What Is Your Current Pack Years? 10packyears Information not available 12/31/2024 Do You Have Any Pets? Yes Bulldog Information not available 12/15/2023 What Is Your Relationship Status? Information not available 12/15/2023 Do You Use Your Seat Belt Or Car Seat Routinely? Yes Information not available 12/15/2023 Are You Sexually Active? No Information not available 12/15/2023 Do You Have Smoke And Carbon Monoxide Detectors In Your Home? Yes Information not available 12/15/2023 Are You Passively Exposed To Smoke? No Information not available 12/15/2023 Are There Any Smokers In Your House? No Information not available 12/15/2023 How Much Tobacco Do You Smoke? No Information not available 12/31/2024 What Types Of Sporting Activities Do You Participate In? 0 Information not available 12/31/2024 Do You Use Sunscreen Routinely? No Information not available 12/15/2023 Has Tobacco Cessation Counseling Been Provided? Yes Information not available 12/15/2023 On What Date Was Tobacco Cessation Counseling Provided? 12/31/2024 Information not available 12/31/2024 How Many Years Have You Smoked Tobacco? 25 Information not available 12/31/2024 Do You Have Difficulty Walking Or Climbing Stairs? No Information not available 12/15/2023 How Many Days In The Past Year Have You Consumed 5 Or More Drinks? 0 Information not available 12/31/2024 Sex: Male Functional Status Question Answer Note LastModified by Organizat ion Details LastModified Time How many times per week do you consume alcohol? 1-2 times per week Information not available 12/31/2024 Do you use any illicit or recreational drugs? No Information not available 12/15/2023 Do you or have you ever used any other forms of tobacco or nicotine? No Information not available 06/12/2023 What is your level of alcohol consumption? Occasional Information not available 12/31/2024 Are you currently employed? Yes Information not available 12/15/2023 Do you have transportation difficulties? No Information not available 12/15/2023 Are you able to walk independently without assistance or assistive devices? YESWOREST Information not available 12/15/2023 Do you have difficulty doing errands alone? No Information not available 12/15/2023 Are you able to care for yourself independently? Yes Information not available 12/15/2023 What is your occupation? [employer] Information not available 12/31/2024 Do you have difficulty dressing, bathing, grooming, or toileting? No Information not available 12/15/2023 What is your exercise level? Moderate Information not available 12/31/2024 Mental Status Question Answer Note LastModified by Organizat ion Details LastModified Time Do you feel stressed (tense, restless, nervous, or anxious, or unable to sleep at night)? [id number] Information not available 12/15/2023 Do you have difficulty concentrating, remembering or making decisions? No Information no t available 12/15/2023 Family History Nothing Reported. Medical History No medical history recorded. Immunizations Vaccine Type Date Status Note Provider Nam e and Address Organization Details Recorded Time zoster live 7 completed Not Available [facility] 12/02/2023 01:31:28 Tdap 7 completed Not Available [facility] 12/02/2023 01:31:28 pneumococcal polysaccharide PPV23 2 completed Not Available [facility] 12/02/2023 01:31:28 DT (pediatric) 8 completed Not Available [facility] 12/02/2023 01:31:28 DT (pediatric) 7 completed Not Available [facility] 12/02/2023 01:31:28 COVID-19, mRNA, LNP-S, PF, 100 mcg/0.5mL dose or 50 mcg/0.25mL dose 1 completed Not Available [facility] 12/02/2023 01:31:28 COVID-19, mRNA, LNP-S, PF, 100 mcg/0.5mL dose or 50 mcg/0.25mL dose 1 completed Not Available [facility] 12/02/2023 01:31:28 Past Encounters Encounter ID Performer Location Encounter Start Date Encounter Closed Date Diagnosis/Indication Diagnosis SNOMED-CT Code Diagnosis ICD10 Code Diagnosis IMO Codes Diagnosis Note [id number] Cresencio Barbosa MD [facility]_ [facility] [place] [address] 04/13/2023 13:04:59 04/13/2023 14:26:23 Dizziness 372268214 R42 Due to his persistent symptoms we will send him for vestibular therapy hopefully to resolve his vertigo symptoms completely . We will also send him for CT scan of the head to rule out normal pressure hydrocepha cliff and other possible cerebral abnormalit ies. We will have him come back in 2 months to see if he is back to normal. 05-04-23: (LM) reported normal labs awaiting CT scan results which we have not received yet. Await callback wondering if patient is doing much better.. ETL Hypertensive disorder 38 929153 I10 Well-contr olled on atenolol 100 mg daily and amlodipine 10 mg daily we will continue present dose and hopefully he can lose some more weight and we reviewed his salt control once again. Obstructiv e sleep apnea syndrome 64252511 G47.33 He continues to do well using his CPAP machine encourage patient to continue to lose more weight to improve his sleep issues. Seizure disorder 5095169 02 G40.909 No recent episodes on Tegretol 400 mg twice a day we will check a level today. [id number] Cresencio Barbosa MD [facility] [place] [address] 06/12/2023 08:41:38 06/12/2023 11:24:51 Dizziness 605598079 R42 Symptoms have resolved we will hold off on further work-up but he will call us if symptoms restart once again he will monitor for symptoms if he does lose weight because he might be hypotensiv e do to his 2 blood pressure medicines. Hypertensive disorder 38 298634 I10 Still well controlled on atenolol 100 mg daily and amlodipine 10 mg daily. We will continue to monitor for hypotensio n specially if he does lose some weight. Seizure disorder 9549742 02 G40.909 No recent episodes on Tegretol 400 mg twice a day we will check a level today. [id number] Cresencio Barbosa MD [facility] _[address] [place] [address] 12/15/2023 07:58:51 12/15/2023 09:04:25 Adult health examination 576773253 Z00.00 Bismark is stable but noted weight gain and higher blood pressure today. We again stressed the need for him to control his diet for multiple reasons and start low impact cardio exercises if possible. We will check his CBC CMP cholestero l and PSA level. He declined any vaccinatio n but is up-to-date with his Tdap Shingrix and Pneumovax. We are still trying to obtain his latest colonoscop y report but he sees GI for endoscopy every 3 years. Hypertensive disorder 38 997503 I10 Well-contr olled today. We will have him recheck his blood pressure at home and recorded and follow-up in 1 month. We will continue amlodipine 10 mg daily and atenolol 100 mg daily. Pain of ri ght ankle joint [id number] 1032857 M25.571 Possible gout and also osteoarthr itis. We will obtain an x-ray to rule out severe arthritis. 2-27-24: (LM) reported x-ray showing calcific tendinosis of the Achilles tendon. Await callback for further management if needed or possible Ortho consult. ETL Seizure disorder 9094066 02 G40.909 No recent episodes on Tegretol 400 mg twice a day we will check a level today. 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 Hypercholesterolemia 136 23876 E78.00 Maintain simvastati n 40 mg daily and we will check cholestero l and liver function test. Chronic go uty arthritis 88602592 M1A.0790 Will check uric acid levels and allopurino l 200 mg daily which we will continue. Reviewed dietary changes are restrictio ns once again. Obstructiv e sleep apnea syndrome 68248384 G47.33 He continues to do well using his CPAP machine encourage patient to continue to lose more weight to improve his sleep issues. [id number] Cresencio Barbosa MD [facility]_ IM_[address] [place] [address] 01/18/2024 08:04:35 01/18/2024 08:47:45 Hypertensive disorder 75081770 I10 Still poorly controlled with weight gain. After discussion patient agreed to add losartan 25 mg daily. Will continue amlodipine 10 mg in the morning and atenolol 100 mg at night. Will see him back in a month with blood pressure readings reviewed salt control once again. Calcific t endinitis of right ankle 3916337532 87989 M65.271 Patient declined any orthopedic consults advised to use warm compresses at home and Voltaren gel while at work. Avoid oral NSAIDs due to his blood pressure issues. [id number] Cresencio Barbosa MD [facility]_ [facility] [place] [address] 02/23/2024 08:03:19 02/23/2024 11:00:45 Hypertensive disorder 57839431 I10 Presently well-contr olled with the addition of losartan 25 mg daily which we will continue. Maintain atenolol 100 mg daily and amlodipine 10 mg daily as well. He will continue to control his salt intake and maintain low impact cardio exercises regularly. Body mass index 30+ - obesity 342522780 E66.9 Very much encouraged by his 5 pound weight loss over the last month. Continue to give him a target of 250 pounds for now hopefully even less. Reviewed caloric control once again. We will see him back in 4 months [id number] MD VIKASH Noriega_[facility]_ _[address] [place] [address] 06/13/2024 08:05:54 06/13/2024 08:33:44 Body mass index 30+ - obesity 820764010 Z68.37 Diet control we encouraged him to continue to lose the weight and low impact cardio exercises. Essential hypertension 66583110 I10 Seems to be doing well on losartan 25 mg daily, amlodipine 10 mg daily and atenolol 100 mg daily. Will continue present dose and encourage continued salt control. Morbid obesity 124598694 E66.01 Right flank pain 1694945 09 R10.9 Possible kidney stones. We will check a urinalysis as well as CBC and CMP. To confirm diagnosis. [id number] MD [facility] _[address] [place] [address] 12/16/2024 13:24:00 12/16/2024 15:35:09 Viral upper respiratory tract infection 760745996 J06.9 [id number] Will have him start Zyrtec 10 mg at bedtime to add to his usual intake of Claritin in the morning. Will also have him check himself for COVID and call us if it is positive. Will hold off on any antibiotic s for now but increase bedrest and fluids. Also monitor for productive cough and shortness of breath. Morbid obesity 639730259 E66.01 Body mass index 30+ - obesity 253258664 Z68.37 Seizure disorder 9490966 02 G40.909 Essential hypertension 72997522 I10 [id number] MD VIKASH [facility] [place] [address] 12/31/2024 15:24:35 01/02/2025 23:43:17 Adult health examination 601658320 Z00.00 Bismark is doing generally well and he is very much aware of his inability to improve his diet and exercise more. We will recheck his CBC CMP and cholestero l panel. He is up-to-date with his Tdap Zostavax and pneumo vaccine. He declines all other vaccinatio ns. He is agreeable to a Cologuard because he is past due his colonoscop y.ETL3 25: (LM) reported LDL still elevated with 10-year CV risk of 16%. Last cardiac catheteriz ation was 2018 which showed no significan t obstructio n. Await callback for possible advice for stress test. 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 Seizure disorder 5717895 02 G40.909 Well-contr olled on carbamazep ine 400 mg 3 times a day which we will continue and check levels. Body mass index 30+ - obesity 676673907 Z68.37 Continue to teach caloric restrictio n and start low impact cardio exercises. Will check TSH level. Hypertensive disorder 38 571018 I10 Presently well-contr olled with losartan 25 mg daily which we will continue. Maintain atenolol 100 mg daily and amlodipine 10 mg daily as well. He will continue to control his salt intake and maintain low impact cardio exercises regularly. 25: Patient reports feeling lightheade d constantly when he stands up because he has lost almost 20 pounds over the past few months. We will cut back atenolol to 50 mg daily and maintain losartan at 25 mg daily and amlodipine at 10 mg daily. He has a follow-up with us in 2 weeks. ETL Chronic go uty arthritis 65910954 M1A.0790 Will check uric acid levels and continue allopurino l 200 mg daily. Reviewed dietary changes are restrictio ns once again. Obstructiv e sleep apnea syndrome 85491355 G47.33 He continues to do well using his CPAP machine encourage patient to continue to lose more weight to improve his sleep issues. [id number] Cresencio Barbosa MD [facility]_ [facility] [place] [address] 07/08/2025 15:55:18 07/08/2025 16:35:19 Hypertensive disorder 26894608 I10 Due to persistent high blood pressure off the atenolol we will increase losartan to 50 mg daily and maintain amlodipine 10 mg daily. He will start to check his blood pressure at home and report to us in 2 to 4 weeks what his blood pressure at home is. We have calibrated his blood pressure machine in the past which was normal. 08-21-25: Patient reports blood pressure higher at home with losartan 50 mg daily and amlodipine 10 mg daily without atenolol and feels like his blood pressure was much better controlled when the losartan was just 25 mg daily so we will do that. He will continue to monitor his blood pressure on losartan 25 mg daily and amlodipine 10 mg daily without the atenolol. ETL Hypercholesterolemia 136 99843 E78.00 Maintain simvastati n 40 mg daily and we will check cholestero l and liver function test. Body mass index 30+ - obesity 700503547 Z68.37 Very encouraged by his recent weight loss and hopefully he can sustain it. Chronic go uty arthritis 02329517 M1A.0790 Will check uric acid levels and decrease allopurino l to 100 mg daily. Reviewed dietary changes are restrictio ns once again. Health Concerns Section Related Observation LastModified by Organization Detai ls LastModified Time None Recorded Concern Status LastModified by Organization Details LastModified Time None Recorded Advance Directives Directive Y: Payers Insurance Date Sequence Insurance Name Policy Number Policy Jason Covered Member ID Jason Member ID Guarantor Name 07/08/2025 1 MEDICARE B-[place]: NGS Ronnie Padron [id number] Ronnie Padron 07/05/2025 2 [place] [id number] Ronnie Padron [id number] Ronnie Padron 05/25/2023 1 [facility] [id number] Ronnie Padron [id number] Ronnie Padron 07/01/2023 2 [facility] Ronnie Padron [id number] Ronnie Padron 12/15/2023 1 [facility] [id number] Ronnie Padron [id number] Ronnie Padron Notes Date Note Type Note Provider Name and Address Organization Details Recorded Time 4 text/html Bismark is back today for follow-up of his blood pressure and obesity. He has been working really hard and is lost 5 pounds over the last month and feeling well. We also added losartan 25 mg daily which she is tolerating well. He continues to be on amlodipine 10 mg daily and atenolol 100 mg daily. Hyperlipidemia stable on simvastatin 40 mg daily and seizure disorder still well-controlled on carbamazepine 400 mg 3 times a day which is regulated by neurology. Cresencio Barbosa MD [address] [place] [address], [address] [place] [address], [phone], [facility] 02/23/2024 08:28:00 4 text/html He comes in today for his follow-up for his blood pressure and obesity. He has been working very hard and has lost 4 pounds over the last 4 months and trying to exercise more regularly. Blood pressure remains on losartan 25 mg daily, amlodipine 10 mg daily and atenolol 100 mg daily. His blood pressure at home when he is checking is averaging 130/80 and he is feeling well. Over the past month he has noticed right flank discomfort which is intermittent and mild to moderate. It is nonradiating with no rash noted initially. No recent trauma or falls and pain is not worse with walking or eating. Bowel movements have been regular and no urinary symptoms. He has history of kidney stones in the past. Cresencio Barbosa MD [address] [place] [address], [address] [place] [address], [place], [phone], [facility] 06/13/2024 08:33:22 5 text/html Virtual VisitReported by PatientIdentity:For patient identity verified by, patient reportsknown established patient. For i shared my identity credentials with the patient, patient reportsyes.Location:For patient is currently located in the state of, patient reportsct([place] For patient location, patient reportshome. For provider location, patient reportsi was located at my office.Virtual Visit Education:For i educated the patient on the nature of a virtual visit, patient reportsyes. For emergency plan agreed upon, patient reportsyes.Virtual Visit Technology:For the patient was seen through synchronous audio and video technology, patient reportsyes. For any documented vital signs were obtained during the telehealth visit via, patient reports__. Ronnie is seen today for an acute visit via TeleMed video. He has been having 2 to 3-day history of nasal congestion with postnasal drip. He also has symptoms of body malaise and fatigue with mild fever. He has been taking oqya-afy-garzomk cough medicine with no improvement. His recently had an episode of viral URI which progressed to COPD exacerbation. He is did test for COVID which was negative. Patient has no history of asthma or smoking but has history of seasonal allergic rhinitis. Cresencio Barbosa MD [address] [place] [address], [address], [place], [address], [place] [facility] 12/16/2024 15:13:09 5 text/html Medicare Annual Wellness Visit Health Risk AssessmentReported by PatientSocial/Behavioral HistoryFor diet and nutrition, patient reportshigh caloric intake. For physical activity, patient reportsdoes not exercise on a regular basis,poor physical condition, anddeconditioned due to sedentary lifestyle. For medication review, patient reportshas medications at home and can afford medicationsandtaking medications as prescribed and directed. For fracture risk, patient reportsno recent explained fracture. For sexual activity, patient reportsdifficulty with sexual activity or cannot perform. For current level of pain, patient reportsno pain: 0/10. For behavioral history, patient reportsdenies use of tobacco or any other nicotine delivery product (i.e., e-cigarette, vaping or chewing tobacco) in past 12 months,denies alcohol use or practices limited (social only) alcohol use,denies misuse of prescription medications, anddenies drug use, including marijuana, cocaine or crack, heroin, methamphetamine (crystal meth), hallucinogens, ecstasy/mdma. For fatigue, patient reportsdenies fatigue.Mental Status:For depression risk, patient reportsassessed by phq 2/9, see results. For orientation, patient reportsno disorientation to time,no disorientation to date, andno disorientation to place. For concentration and memory, patient reportsno decreased concentrating ability,no memory lapses or loss, anddoes not forget words. For speech/motor difficulties, patient reportsno speech difficulties,no difficulty expressing formulated concepts,no difficulty with fine manipulative tasks,no difficulty writing/copying,no slowed reaction time, anddoes not knock things over when trying to pick them up. For life satisfaction, patient reportscurrently satisfied with life. For stress, patient reportsnot stressed. For anger, patient reportsno anger. For loneliness/ social isolation, patient reportsnot feeling loneliness. For suicidality, patient reportsdenied active suicidal ideation.Functional AbilityFor hearing, patient reportswears hearing aids. For vision, patient reportswears eyeglasses/contacts. Ronnie is seen today for his annual physical examination. He has been doing well except he continues to struggle with his weight control gaining another 5 pounds over the last 6 months and admittedly due to poor diet control. He does not usually exercise regularly and we have been trying to get him to cut back on his calories for years. He is scheduled to have a urological procedure for his enlarged prostate and he continues to be on tamsulosin 0.4 mg daily with poor response. No recent seizure episodes on Tegretol 400 mg 3 times a dayNo recent gout episodes as well on allopurinol 200 mg daily. Blood pressure remains controlled on amlodipine 10 mg daily, atenolol 100 mg daily and losartan 25 mg daily.Cholesterol still well-controlled on simvastatin 40 mg daily Had a recent EGD which confirmed continued Britt's esophagus and still on omeprazole 20 mg twice a day.BRITANY still well-controlled on CPAP which she recently got a new machine and he is tolerating it very well. Bilateral hip replacement and right shoulder surgical repair all doing well, with no acute issues recently. Cresencio Barbosa MD [address] [place] [address], [address], [place], [address], [place] [facility] 06/23/2025 13:14:48 5 text/html Ronnie is seen today for his 6-month follow-up of his obesity with hypertension, hyperlipidemia and gout. He has been working very hard recently on his weight and has lost 16 pounds over the past 6 months mostly over the past few months. He started having lightheadedness so we slowly tapered him off his atenolol from 100 mg to complete cessation. He is still on losartan 25 mg daily and amlodipine 10 mg daily for blood pressure control. He has had no recent gout episodes still on allopurinol 200 mg daily with a normal uric acid level checked 6 months ago. Cholesterol still well-controlled on simvastatin 40 mg daily. No recent seizure episodes on carbamazepine 400 mg 3 times a day. Carbamazepine levels were normal range 6 months ago. He feels much better with less or lethargy of the atenolol and more energy because of the weight loss. He is also beginning to exercise a little bit more frequently. Cresencio Barbosa MD [address] [place] [address], [address] [place], [place], [address], [place] [facility] 08/21/2025 12:17:52
--- OUTSIDE RECORDS SUMMARY | 2025-09-08 11:22 | XMS_ITS | Data Portability ---
Author Organization [employer] CBO ADMIN Address [address] [place] [address] Care Team Providers Care Oxygen Equipment Technician Name Role Phone АЛЕКСАНДР SIMS Primary Care Provider Assessment No assessment recorded. Plan of Treatment Reminders Order Date Submit Date Provider Last Modified By Organization Details Last Modified Time Details Appointments ULTRASOU ND 30 2025 08:00A M GP [employer] TECH 1 Not available Not available Not available ULTRASOU ND FU 20 2025 08:40A M Radha, GRAIN COMBINER Not available Not available Not available Lab urinalys is, dipstick , auto 2024 025 [email or web address] [facility], [address] [place] [address], [address], 07/07/2025 09:09:45 urinalys is, dipstick , auto 2024 025 [email or web address] [facility], [address] [place] [address], [address], 04/04/2025 15:31:56 culture, urine 2024 025 [email or web address] [facility] (Centralized Electronic Ordering - All Locations), Patient Can Go To The Location Of Their Choice, [id number] 04/05/2025 18:06:02 urinalys is, dipstick , auto 2024 025 [email or web address] [facility], [address], [address], 02/18/2025 10:45:19 Referral None recorded . Procedures bladder scan (PROC) 2024 025 [email or web address] [facility] [place], [address], [place], [address], 04/04/2025 15:31:56 Surgeries None recorded . Imaging None recorded . Medication Orders None recorded . Patient TargetsNo targets recorded. Patient Instructions Encounter Date Encounter Id Patient Instructions Last Modified By Organization Details Last Modified Time 04/04/2025 [id number] -Stop the tamsulosin -RBUS and follow-up in 3 months [email or web address] Not available 04/04/2025 15:22:10 07/07/2025 [id number] -RBUS and follow-up in one year [facility] Not available 07/07/2025 09:15:34 Reason for Referral None Reported. Results Created Date Observation Date Name Description Value Unit Range Abnormal Flag Note LastModifiedBy Organization Detail LastModifiedTime 02/04/2002/05/2025 URINE CULTU RE, ROUTI NE urine culture, routine Final report Not Available [facility] ([facility]) [address] [facility], [place], [address], 02/05/2025 06:06:08 02/04/20 25 02/05/2025 URINE CULTU RE, ROUTI NE result 1 COMMEN T Cultu re shows less than 10,00 0 colon y formi ng units of bacte dung per jodie liter of urine . This colon y count is not gener ally consi dered to be clini jeffery signi fican t. Not Available [facility] ([facility]) [address] [facility], [place], [address], 02/05/2025 06:06:08 02/04/20 25 02/03/2025 urina lysis , dipst ick, auto Leukocytes Negati ve Not Available [facility] [place] [address], [place], [address], 02/03/2025 15:34:53 02/04/20 25 02/03/2025 urina lysis , dipst ick, auto Nitrite negati ve Not Available [facility] [address], [place], [address], 02/03/2025 15:34:53 02/04/20 25 02/03/2025 urina lysis , dipst ick, auto Urobilinogen .2 Not Available [facility] [place] [address], [place], [address], 02/03/2025 15:34:53 02/04/20 25 02/03/2025 urina lysis , dipst ick, auto Protein Negati ve Not Available [facility] [address], [place], [address], 02/03/2025 15:34:53 02/04/20 25 02/03/2025 urina lysis , dipst ick, auto pH 5.5 Not Available [facility] [address], [place], [address], 02/03/2025 15:34:53 02/04/20 25 02/03/2025 urina lysis , dipst ick, auto Blood Negati ve Not Available [facility] [address], [place], [address], 02/03/2025 15:34:53 02/04/20 25 02/03/2025 urina lysis , dipst ick, auto Specific Humble 1.025 Not Available [facility] [address], [place], [address], 02/03/2025 15:34:53 02/04/20 25 02/03/2025 urina lysis , dipst ick, auto Ketone Negati ve Not Available [facility] [address], [place], [address], 02/03/2025 15:34:53 02/04/20 25 02/03/2025 urina lysis , dipst ick, auto Bilirubin Negati ve Not Available [facility] [address], [place], [address], 02/03/2025 15:34:53 02/04/20 25 02/03/2025 urina lysis , dipst ick, auto Glucose Negati ve Not Available [facility] [address], [place], [address], 02/03/2025 15:34:53 02/18/20 25 02/17/2025 urina lysis , dipst ick, auto Leukocytes Negati ve Not Available [facility] [address], [place], [address], 02/17/2025 09:31:22 02/18/20 25 02/17/2025 urina lysis , dipst ick, auto Nitrite negati ve Not Available [facility] [address], [place], [address], 02/17/2025 09:31:22 02/18/20 25 02/17/2025 urina lysis , dipst ick, auto Urobilinogen .2 Not Available [facility] [place] [address], [place], [address], 02/17/2025 09:31:22 02/18/20 25 02/17/2025 urina lysis , dipst ick, auto Protein Negati ve Not Available [facility] [address], [place], [address], 02/17/2025 09:31:22 02/18/20 25 02/17/2025 urina lysis , dipst ick, auto pH 6.0 Not Available [facility] [address], [place], [address], 02/17/2025 09:31:22 02/18/20 25 02/17/2025 urina lysis , dipst ick, auto Blood Negati ve Not Available [facility] [address], [place], [address], 02/17/2025 09:31:22 02/18/20 25 02/17/2025 urina lysis , dipst ick, auto Specific Humble 1.025 Not Available [facility] [address], [place], [address], 02/17/2025 09:31:22 02/18/20 25 02/17/2025 urina lysis , dipst ick, auto Ketone Negati ve Not Available [facility] [address], [place], [address], 02/17/2025 09:31:22 02/18/20 25 02/17/2025 urina lysis , dipst ick, auto Bilirubin Negati ve Not Available [facility] [address], [place], [address], 02/17/2025 09:31:22 02/18/20 25 02/17/2025 urina lysis , dipst ick, auto Glucose Negati ve Not Available [facility] [address], [place], [address], 02/17/2025 09:31:22 04/04/20 25 04/05/2025 URINE CULTU RESERGEI NE urine culture, routine Final report Not Available [facility] ([facility]) [address] [place] [address], [place], [address], 04/05/2025 18:06:02 04/04/20 25 04/05/2025 URINE CULTU RE, SERGEI NE result 1 COMMEN T Cultu re shows less than 10,00 0 colon y formi ng units of bacte dung per jodie liter of urine . This colon y count is not gener ally consi dered to be clini jeffery signi sunday t. Not Available [facility] ([facility]) [address] [facility], [place], [address], 04/05/2025 18:06:02 04/04/20 25 04/04/2025 urina lysis , dipst ick, auto Leukocytes Negati ve Not Available [facility] [address], [place], [address], 04/04/2025 15:08:26 04/04/20 25 04/04/2025 urina lysis , dipst ick, auto Nitrite negati ve Not Available [facility] [address], [place], [address], 04/04/2025 15:08:26 04/04/20 25 04/04/2025 urina lysis , dipst ick, auto Urobilinogen .2 Not Available [facility] [place] [address], [place], [address], 04/04/2025 15:08:26 04/04/20 25 04/04/2025 urina lysis , dipst ick, auto Protein Negati ve Not Available [facility] [address], [place], [address], 04/04/2025 15:08:26 04/04/20 25 04/04/2025 urina lysis , dipst ick, auto pH 5.5 Not Available [facility] [address], [place], [address], 04/04/2025 15:08:26 04/04/20 25 04/04/2025 urina lysis , dipst ick, auto Blood Negati ve Not Available [facility] [address], [place], [address], 04/04/2025 15:08:26 04/04/20 25 04/04/2025 urina lysis , dipst ick, auto Specific Humble 1.025 Not Available [facility] [address], [place], [address], 04/04/2025 15:08:26 04/04/20 25 04/04/2025 urina lysis , dipst ick, auto Ketone Negati ve Not Available [facility] [address], [place], [address], 04/04/2025 15:08:26 04/04/20 25 04/04/2025 urina lysis , dipst ick, auto Bilirubin Negati ve Not Available [facility] [address], [place], [address], 04/04/2025 15:08:26 04/04/20 25 04/04/2025 urina lysis , dipst ick, auto Glucose Negati ve Not Available [facility] [address], [place], [address], 04/04/2025 15:08:26 04/04/20 25 04/04/2025 bladd er scan (PROC ) Urine Volume 23 Not Available [facility] [place] [address], [place], [address], 04/04/2025 15:08:34 07/07/20 25 07/07/2025 urina lysis , dipst ick, auto Leukocytes Negati ve Not Available [facility] [address], [place], [address], 07/07/2025 08:17:00 07/07/20 25 07/07/2025 urina lysis , dipst ick, auto Nitrite negati ve Not Available [facility] [address], [place], [address], 07/07/2025 08:17:00 07/07/20 25 07/07/2025 urina lysis , dipst ick, auto Urobilinogen .2 Not Available [facility]y [place] [address], [place], [address], 07/07/2025 08:17:00 07/07/20 25 07/07/2025 urina lysis , dipst ick, auto Protein Negati ve Not Available [facility] [address], [place], [address], 07/07/2025 08:17:00 07/07/2007/07/2025 urina lysis , dipst ick, auto pH 5.5 Not Available [place] [address], [place], [address], 07/07/2025 08:17:00 07/07/2007/07/2025 urina lysis , dipst ick, auto Blood Negati ve Not Available [facility] [address], [place], [address], 07/07/2025 08:17:00 07/07/20 25 07/07/2025 urina lysis , dipst ick, auto Specific Humble 1.025 Not Available [facility] [address], [place], [address], 07/07/2025 08:17:00 07/07/20 25 07/07/2025 urina lysis , dipst ick, auto Ketone Negati ve Not Available [facility] [address], [place], [address], 07/07/2025 08:17:00 07/07/20 25 07/07/2025 urina lysis , dipst ick, auto Bilirubin Negati ve Not Available [facility] [address], [place], [address], 07/07/2025 08:17:00 07/07/20 25 07/07/2025 urina lysis , dipst ick, auto Glucose Negati ve Not Available [facility] [place] [address], [place], [address], 07/07/2025 08:17:00 03/11/20 25 02/17/2025 US, mina nce No observ ation record ed. [email or web address] Aure[address], [place], [address], 03/11/2025 09:19:01 07/08/20 , renal No observ ation record ed. [email or web address] Not Available 2024 08:04:50 07/12/20 25 07/07/2025 , renal No observ ation record ed. [email or web address] [address]urelia [address], [place], [address], 07/14/2025 08:03:00 Result Notes None recorded. Problems Name Problem SNOMED Code Status Onset Date Resolution Date Notes Provider Name and Address Organization Details Recorded Time Benign prostatic hyperplasia with outflow obstruction 399725849 Active 2023 Hadley Montgomery MD [address] [place], [address], [place] - [facility] 5 13:47:07 Prostate specific antigen above reference range 423354149 Active 2023 TESSHAE CHAY null, [place] - [facility] 4 15:56:56 Spasm of urinary bladder 885340073 Active 2024 Radha David APRN [address] [place], [address], [place] - [facility] 5 12:58:45 Retention of urine 874914459 Active 2024 SIMONA LLOYD null, [place] - [facility] 11:17:58 Incomplete emptying of urinary bladder 938365883 Active 2024 ESINU SIMPINI null, [place] - [facility] 14:54:35 Urge incontinence of urine 36379786 Active 2024 Radha Cantoredelshea, GRAIN COMBINER [address] [place], [address], [place] - [facility] 15:02:24 Kidney stone 67030131 Active 2024 Radha Cantordayami, GRAIN COMBINER [address] [place], [address], [place] - [facility] 15:02:28 Simple renal cyst 61514235 Active 2024 Radha Cantoredelshea, GRAIN COMBINER [address] [place], [address], [place] - [facility] 11:17:12 Problem Notes None recorded. Procedures Surgical History Date Name Laterality Status Provider Name and Address Organization Details Recorded Time 07/07/20 25 GP-RBUSTRICE completed [facility] - [facility] 07/10/2025 15:17:20 02/20/20 25 FOR VOIDING TRIALS completed [facility] 02/26/2025 14:53:48 02/20/20 25 Brown Catheter Insertion completed [facility] 02/26/2025 14:54:31 02/18/20 25 UroLift -GP completed Hadley Montgomery MD [address] [place], [address], [place] - [facility] 02/17/2025 10:20:35 10/14/20 [address] [facility] 10/14/2024 15:57:20 10/14/20 24 Cystoscopy (Male) completed [facility] 10/14/2024 14:44:18 09/20/20 24 urodynamic studies [facility] 10/10/2024 14:48:51 09/02/20 24 ultrasonography of retroperitoneum completed [facility] 10/10/2024 14:51:44 Imaging Results None recorded. Procedure Notes None recorded. Medical Equipment None Reported. Medications Name Sig Start Date Stop Date Status Note LastModified by Organization Details LastModified Time atenolol 100 mg tablet TAKE 1 TABLET BY MOUTH EVERY DAY active Not Available Not Available No t Available phenazopyri dine 200 mg tablet TAKE 1 TABLET BY MOUTH THREE TIMES A DAY 04/04 completed Not Available Not Available Not Available allopurinol 100 mg tablet TAKE 2 TABLETS BY MOUTH EVERY DAY active Not Available Not Available No t Available tramadol 50 mg tablet TAKE 1 TABLET BY MOUTH EVERY 6 HOURS NEEDED FOR 5 DAYS active Not Available Not Available No t Available amoxicillin 500 mg tablet TAKE 4 TABS ONE HOUR PRIOR TO DENTAL APPOINTME NT active Not Available Not Available No t Available simvastatin 40 mg tablet TAKE 1 TABLET BY MOUTH EVERY DAY IN THE EVENING active Not Available Not Available No t Available carbamazepi ne 200 mg tablet TAKE 2 TABLET BY MOUTH 3 TIMES A DAY active Not Available Not Available No t Available tamsulosin 0.4 mg capsule TAKE 1 CAPSULE BY MOUTH DAILY 30 MINUTES AFTER DINNER 07/07 completed Not Available Not Available Not Available amlodipine 10 mg tablet TAKE 1 TABLET BY MOUTH EVERY DAY active Not Available Not Available No t Available cephalexin 500 mg capsule TAKE 1 CAPSULE BY MOUTH THREE TIMES A DAY FOR 3 DAYS 04/04 completed Not Available Not Available Not Available losartan 25 mg tablet TAKE 1 TABLET BY MOUTH EVERY DAY active Not Available Not Available No t Available omeprazole 20 mg capsule,del ayed release TAKE 1 CAPSULE BY MOUTH TWICE A DAY active Not Available Not Available No t Available nystatin 100,000 unit/gram topical powder APPLY TO AFFECTED AREA DAILY active Not Available Not Available No t Available epinephrine 0.3 mg/0.3 mL injection, auto-inject or INJECT 1 PEN INTRAMUSC ULARLY ONCE FOR 1 DOSE FOR ANAPHYLAC TIC REACTION active Not Available Not Available No t Available methylpredn isolone 4 mg tablets in a dose pack TAKE DIRECTED PER PACKAGE DIRECTION S FOR 6 DAYS active Not Available Not Available No t Available oxybutynin chloride 5 mg tablet TAKE 1 TABLET BY MOUTH EVERY 8 HOURS NEEDED 04/04 completed Not Available Not Available Not Available Vitals None Recorded Social History None recorded. Functional Status None recorded. Mental Status None recorded. Family History Nothing Reported. Medical History No medical history recorded. Past Encounters Encounter ID Performer Location Encounter Start Date Encounter Closed Date Diagnosis/Indication Diagnosis SNOMED-CT Code Diagnosis ICD10 Code Diagnosis IMO Codes Diagnosis Note [id number] Hadley Montgomery MD [facility] [place] [address] [place] [address] 10/14/2024 13:22:07 10/14/2024 15:13:11 Benign prostatic hyperplasia with outflow obstruction 542609060 N40.1 N13.8 [id number] - See procedure note.- I counseled pt on the risk of bladder burnout secondary to prostate obstructio n. I advised pt that as time goes on, the prostate becomes more obstructin g, causing the bladder to maximize its pressure and gradually lose its elasticity . Signs of bladder burnout include difficulty voiding, incomplete bladder emptying, and increased frequency. I would strongly recommend monitoring his bladder and prostate status to determine the optimal treatment for his symptoms and prevent irreversib le loss of bladder function.- - I discussed minimally invasive procedures such as Urolift. This procedure may allow pt to discontinu e one or all of his current BPH medication s. I reviewed its expected benefits and risks. Risks include bleeding, infection, retained fragments, bladder stones, urethral stricture, injury to surroundin g structure, failure to treat and/or cure, and need for additional procedures . Alternativ e therapies include prostate laser vaporizati on, Rezum, and TURP. Pt was advised that the Urolift procedure is the least invasive of the aforementi oned procedures ; there are no serious sexual side effects or other urologic side effects such as urinary incontinen ce or leakage. However, he may experience mild albeit temporary irritative voiding symptoms.- After discussion , pt is opting to proceed with a UroLift. Pt to be scheduled. Pt to get PSA lab done prior to procedure. [id number] Danielle Aguilar APRN [facility] [address] [place] [address] 12/11/2024 14:59:54 12/11/2024 15:48:08 Benign prostatic hyperplasia with outflow obstruction 726565610 N40.1 N13.8 [id number] I reviewed pre-op urolift instructio n with pt including arrival time, medication s, and what to expect day of and day after urolift.Pt to arrive 10 minutes early.star t keflex 500mg TID the day before uroliftpyr idium 200mg tid prn to start after urolift for bladder spasms, cramping, and dysuria.st art gemtesa 75mg as needed after urolift for urgency and frequencys peak to PCP or cardiologi st if on blood thinners regarding when to stop them pre uroliftavo id alcohol, nicotine, spicy foods, citrus, food or dirkn that has vitamin C, coffee, or caffeine 2 days before and 2 days after your procedure. take your 1st fozia-seltz er gold packet the night before your procedure and the 2nd one 1 hour prior to urolift.Pt will need a ride home after uroliftPt to dress comfortabl y as he will be going home with a catheter. [id number] Hadley Montgomery MD [facility] [place] [address] [place] [address] 02/17/2025 08:45:55 02/17/2025 10:48:37 Benign prostatic hyperplasia with outflow obstruction 735749072 N40.1 N13.8 [id number] - See procedure note.- I counseled pt on the risk of bladder burnout secondary to prostate obstructio n. I advised pt that as time goes on, the prostate becomes more obstructin g, causing the bladder to maximize its pressure and gradually lose its elasticity . Signs of bladder burnout include difficulty voiding, incomplete bladder emptying, and increased frequency. I would strongly recommend monitoring his bladder and prostate status to determine the optimal treatment for his symptoms and prevent irreversib le loss of bladder function.- - I discussed minimally invasive procedures such as Urolift. This procedure may allow pt to discontinu e one or all of his current BPH medication s. I reviewed its expected benefits and risks. Risks include bleeding, infection, retained fragments, bladder stones, urethral stricture, injury to surroundin g structure, failure to treat and/or cure, and need for additional procedures . Alternativ e therapies include prostate laser vaporizati on, Rezum, and TURP. Pt was advised that the Urolift procedure is the least invasive of the aforementi oned procedures ; there are no serious sexual side effects or other urologic side effects such as urinary incontinen ce or leakage. However, he may experience mild albeit temporary irritative voiding symptoms.- After discussion , pt is opting to proceed with a UroLift. Pt to be scheduled. Pt to get PSA lab done prior to procedure. [id number] Hadley Montgomery MD [place] [address] [place] [address] 02/19/2025 09:57:23 02/19/2025 11:05:23 Incomplete emptying of urinary bladder 036217721 R33.9 [id number] Radha David APRN [facility] [address] [place] [address] 04/04/2025 15:02:28 04/04/2025 15:28:34 Benign prostatic hyperplasia with outflow obstruction 213219040 N40.1 N13.8 [id number] -Stop tamsulosin .-Follow-u p in 3 months. Urge incon tinence of urine 77307742 N39.41 652639 -May need to consider medication versus 3rd line therapy if these symptoms worsen. Kidney stone 89120035 N2 0.0 81148 -RBUS in 3 months.-If symptoms return (flank pain etc), please call office dennise. [id number] Radha David APRN [facility] [address] [place] [address] 07/07/2025 08:18:06 07/07/2025 09:20:13 Benign prostatic hyperplasia with outflow obstruction [id number] N40.1 N13.8 09025720 -Remain off of tamsulosin .-RBUS and follow-up in one year.-PSA check next year. Kidney stone 83742466 N2 0.0 16634 -None noted. RBUS in one year. Simple renal cyst 734055 09 N28.1 24290 -Noted in the left kidney. [id number] Hadley Montgomery MD [place] [address] [address] 07/07/2025 08:18:06 07/07/2025 09:20:13 Benign prostatic hyperplasia with outflow obstruction 473062740 N40.1 N13.8 [id number] Health Concerns Section Related Observation LastModified by Organization Detai ls LastModified Time None Recorded Concern Status LastModified by Organization Details LastModified Time None Recorded Advance Directives Directive None Recorded Payers Insurance Date Sequence Insurance Name Policy Number Policy Jason Covered Member ID Jason Member ID Guarantor Name 07/04/2025 1 MEDICARE B-[place]: TEGAN Padron [id number] Ronnie Padron 07/22/2025 2 [place]MEDICARE SUPPLE[place]) [id number] Ronnie Padron [id number] Ronnie Padron Notes Date Note Type Note Provider Name and Address Organization Details Recorded Time 04/04/2025 text/html ROS as noted in the HPI Ronnie Padron is a 69 y.o. male with hx of nephrolithiasis, UUI and BPH with LUTS s/p Urolift on 02/17/25 who presents for 6-week post-Urolift visit. Follow-up visit after UroLift procedure. Patient reports improved urinary stream strength. Experienced fever last weekend with associated urinary urgency and frequency (4-5 times overnight) with some urgency incontinence. Symptoms resolved spontaneously. Reports intermittent right lower back pain that comes and goes. Previous ultrasound from September 02 showed no stones, masses, or hydronephrosis of bladder.PSA from 01/11/25 demonstrates PSA 2.7. UDS from 09/20/24 demonstrates a smaller than expected urinary reservoir with overall safe storage pressures. No obvious DO. No leak. Initial sensation is delayed with relatively rapid sensory progression. Voiding occurs what appears to be a well-coordinated detrusor contraction with an overall very obstructive pattern. Elevated PVR. Strongly activated EMG throughout the duration of the study. His AUA-SS = 7 (previously 9); QOL = 1 (previously 3). See scanned sheet for complete scoring breakdown.ROBERT = did not completePVR by bladder scan = 23 mLUA = Negative for hematuria or signs of infection. Radha David, GRAIN COMBINER [address] [place], [phone], [facility] 04/06/2025 15:42:09 07/07/2025 text/html ROS as noted in the HPI Ronnie Padron is a 69 y.o. male with hx of nephrolithiasis, UUI and BPH with LUTS s/p Urolift on 02/17/25 who presents for RBUS and 3-month follow-up. Follow-up visit post-UroLift procedure. Reports improved urinary stream since surgery. Denies significant urinary issues. Occasional urgency and frequency reported only if he ignores the urge to void. He has been stable since the last visit. Denies any current complaints. RBUS from today (07/07/25) demonstrates a left, simple renal cyst. There is mild, diffuse bladder wall thickness noted. See scanned procedure note for details.PSA from 01/11/25 demonstrates PSA 2.7. UDS from 09/20/24 demonstrated a smaller than expected urinary reservoir with overall safe storage pressures. No obvious DO. No leak. Initial sensation is delayed with relatively rapid sensory progression. Voiding occurs what appears to be a well-coordinated detrusor contraction with an overall very obstructive pattern. Elevated PVR. Strongly activated EMG throughout the duration of the study. His AUA-SS = 2 (previously 9); QOL = 1 (previously 3). See scanned sheet for complete scoring breakdown.ROBERT = did not completePVR via RBUS = 9.2 mLUA = Negative for hematuria or signs of infection. Radha David APRN [address] [place], [address], [facility] - [facility] 07/07/2025 11:18:05
--- OUTSIDE RECORDS SUMMARY | 2025-09-08 11:22 | XMS_ITS | Clinical Summary ---
Author Organization [facility] Address [address] [place] [address] Care Team Providers Care Electronics Instructor Name Role Phone Cresencio Barbosa MD Primary Care Provider [phone] Allergies Active Allergy Reactions Criticality Noted Date Comments Bee Sting Anaphylaxis High 04/12/2021 Codeine 07/07/2017 Medications Medication Sig Dispensed Refills Start Date End Date Status aspirin 81 MG chewable tablet Chew 1 tablet (81 mg total) by mouth. 0 Active carBAMazepine (TEGretol XR) 400 MG 12 hr tablet Take 1 tablet (400 mg total) by mouth 3 (three) times a day. 0 Active nystatin (MYCOSTATIN) powder Apply topically 4 (four) times a day. 15 g 0 09/29/2022 Active amLODIPine (NORVASC) tablet 10 mgIndications:Hyper tension Take 1 tablet (10 mg total) by mouth daily. 90 tablet 1 11/24/2022 Active atenolol (TENORMIN) tablet 50 mg Take 1 tablet (50 mg total) by mouth daily. 90 tablet 3 12/06/2022 Active allopurinol (ZYLOPRIM) 100 MG tablet TAKE 2 TABLETS BY MOUTH EVERY DAY 180 tablet 3 01/16/2023 Active meclizine (ANTIVERT) 25 MG tablet Take 1 tablet (25 mg total) by mouth 3 (three) times a day as needed. 30 tablet 0 02/01/2023 Active losartan (COZAAR) tablet 25 mg Take 1 tablet (25 mg total) by mouth daily. 0 07/05/2024 Active simvastatin (ZOCOR) tablet 40 mg Take 1 tablet (40 mg total) by mouth every evening. 0 08/17/2024 Active tamsulosin (FLOMAX) 0.4 MG CAPS Take 1 capsule (0.4 mg total) by mouth daily. 30 minutes after dinner 30 capsule 11 09/02/2024 Active Active Problems Problem Noted Date Diagnosed Date Obesity (BMI 30-39.9) 02/01/2023 Osteoarthritis of both hips 09/29/2022 White coat syndrome with hypertension 04/09/2020 Britt's esophagus with dysplasia 04/09/2020 Chronic idiopathic gout of foot 04/09/2020 Hypercholesterolemia 04/09/2020 Nephrolithiasis 04/09/2020 Obstructive sleep apnea syndrome 04/09/2020 Seizure disorder 04/09/2012 Resolved Problems Problem Noted Date Diagnosed Date Resolved Date Left hip pain 10/10/2017 08/12/2021 Immunizations Name Administration Dates Next Due Covid-19 (Moderna 12+) 100mcg/0.5mL dosage 02/08,01/08/2021 DT 09/15/2007,05/03/1998 Pneumococcal Polysaccharide PPSV23 04/07/2012 Tdap 12/22/2016 Zostavax (Zoster Live) 12/22/2016 Family History Medical History Relation Name Comments Diabetes Brother Heart disease Brother Hypertension Brother Cancer Father Diabetes Mother Relation Name Status Comments Brother Father Mother Social History Tobacco Use Types Packs/Day Years Used Date Smoking Tobacco: Never Smokeless Tobacco: Never Alcohol Use Standard Drinks/Week Comments Yes 0 (1 standard drink = 0.6 oz pur e alcohol) Social Sex and Gender Information Value Date Recorded Sex Assigned at Not on file Gender Identity Not on file Sexual Orientation Not on file Job Start Date Occupation Industry Not on file Not on file Not on file Last Filed Vital Signs Vital Sign Reading Time Taken Comments Blood Pressure 154/80 02/01/2023 1:50 PM EDT Pulse 67 02/01/2023 1:50 PM EDT Temperature 36.3 C (97.3 F) 12/12/2022 1:08 PM EST Respiratory Rate 18 02/01/2023 1:50 PM EDT Oxygen Saturation 97% 02/01/2023 1:50 PM EDT Inhaled Oxygen Concentration - - Weight 110.7 kg (244 lb) 09/02/2024 10:46 AM EST Height 177.8 cm (5' 10 ) 09/02/2024 10:46 AM EST Body Mass Index 35.01 09/02/2024 10:46 AM EST Plan of Treatment Health Maintenance Due Date Last Done Comments Pneumococcal Vaccine (2 of 2 - PCV) 2021 04/07/2012 Depression Screening 09/29/2023 09/29/2022, 08/12/2021, 04/09/2020 Fall Risk Assessment 09/29/2023 09/29/2022 Preventative Health Evaluation 09/29/2023 09/29/2022, 09/29/2022, 08/12/2021, Additional history exists BMI Counseling 02/02/2024 02/01/2023, 11/30, 09/29/2022, Additional history exists COVID-19 Vaccine ( season) 2025 02/08/2021, 01/08/2021 Colon Cancer Screening (Colonoscopy) 08/10/2026 08/10/2016 DTap / Tdap / Td (4 - Td or Tdap) 12/22/2026 12/22/2016, 12/22/2016, 09/15/2007, Additional history exists RSV Adult > 60+ Yrs or (1 - 1-dose 75+ series) 2031 Influenza Vaccine Discontinued 08/03/2020 (Declined) Shingrix-Zoster Vaccine Addressed 02/05/20 21 (Declined), 08/03/2020 (Declined) Overridden with the intention of not completing the topic Hepatitis C Screening Addressed 10/25/2022 Overri dden with the intention of not completing the topic Hepatitis B Vaccines Aged Out No long er eligible based on patient's age to complete this topic RSV Ped < 20 months Aged Out No longe r eligible based on patient's age to complete this topic Care Teams Electronics Instructor Relationship Specialty Start Date End Date Cresencio Barbosa MD PCP - General Sole Blacker 06/16/17
== END 2025-09-08 11:13 | disposition home or self-care (01) ==
PROVIDERS: PCP Internal Medicine; Visit Provider Nurse Practitioner
DX: R41.3 Other amnesia (principal); G40.909 Epilepsy, unspecified, not intractable, without status epilepticus; R26.89 Other abnormalities of gait and mobility; R29.6 Repeated falls
CPT/HCPCS: 99214

== ENCOUNTER 2025-10-04 13:19 | Outpatient (REF) | payer MEDICARE, SELFPAY ==
--- NOTE | ~2025-10-04 | MR_ITS ---
EXAMINATION: MR BRAIN WITHOUT AND WITH CONTRAST CLINICAL INFORMATION: Unspecified fall, initial encounter, mamillary changes. Seizure disorder. COMPARISON: MRI of brain from an outside institution dated 05/29/2023 reported as negative. TECHNIQUE: Multiplanar, multisequence MRI of the brain was obtained before and after the intravenous administration of 10.0 mL (Gadavist) without reported immediate complications.. FINDINGS: No restricted diffusion. No acute intracranial hemorrhage, mass effect, midline shift, hydrocephalus or herniation. No abnormal enhancement within the intra-axial or the extra-axial compartment. Chowdhury-white matter differentiation is normal. Bilateral. Scattered nonspecific white matter T2 FLAIR signal foci. No signal abnormality or gross volume loss in the hippocampi. Posterior cranial fossa contents demonstrated no signal abnormality or mass effect. Normal position of the cerebellar tonsils. Sellar/suprasellar region is normal. Flow-void signal within the main cerebral vessels is normal. Mild prominence of the extra-axial CSF spaces cerebral sulci involving mostly the bifrontal parietal lobes. MR/MR head/brain wo/w con IMPRESSION: No acute brain abnormality. No abnormal enhancement. Nonspecific white matter T2 FLAIR signal which could be seen patients with migraines. Bifrontal parietal lobe atrophy, mild to moderate. Electronically signed by: Manuel Hansen MD 10/06/2025 08:26 AM JORDAN TERRELL
--- OUTSIDE RECORDS SUMMARY | 2025-10-04 13:24 | XMS_ITS | Data Portability ---
Author Organization [place] - [facility], [id number] [place] Address [address] [place] [address] Assessment Encounter Date Assessment Date Assessment LastModified [...] serum or plasma 2024 025 gferrentino [facility], [address] [place] [address], [id number], 07/15/2025 08:04:53 lipid panel, serum 2024 025 gferrentino [facility], [address] [place] [address], [id number], 07/15/2025 08:04:53 uric acid, serum or plasma 2024 025 MARCELA [facility], [address] [place] [address], [id number], 08/17/2025 08:06:42 carbama zepine- 10,11-e poxide, serum 2024 025 MARCELA [facility] (Centralized Electronic Ordering - All Locations), Patient Can Go To The Location Of Their Choice, 01/17/2025 12:05:51 noninva sive colorec arron cancer DNA + occult blood screeni ng, QL, stool 2024 [facility], [address], [address], [place], [address], 04/02/2025 08:29:08 uric acid, serum or plasma [...] Go To The Location Of Their Choice, [id number] 06/16/2024 08:06:39 CBC w/ auto diff 2023 024 MARCELA [facility] (Centralized Electronic Ordering - All Locations), Patient Can Go To The Location Of Their Choice, [id number] 06/16/2024 08:06:38 Referral None recorde d. Procedures None recorde d. Surgeries None recorde d. Imaging electro cardiog celina 2024 025 [id number], [address] [place], [address], 01/02/2025 23:43:17 Medication Orders None recorde d. Patient TargetsNo targets recorded. Patient Instructions Encounter Date Encounter Id Patient Instructions Last Modified By Organization Details Last Modified Time 12/31/2024 [id number] Cologuard After Visit Summary Not available 12/31/2024 [...] high in fiber, fruits and vegetables -Take 6670-4059 mg of calcium through diet and supplements -Engage in regular physical activity and weight bearing exercise -Aim to achieve and maintain ideal body mass index Tobacco and Alcohol Use: -Don't smoke or use other tobacco products -Avoid excessive alcohol intake Medications: -If you use any medications (prescriptions, umub-jio-cuzboxc, supplements, herbal), always do so as directed [...] high in fiber, fruits and vegetables -Take 6188-6709 mg of calcium through diet and supplements -Engage in regular physical activity and weight bearing exercise -Aim to achieve and maintain ideal body mass index Tobacco and Alcohol Use: -Don't smoke or use other tobacco products -Avoid excessive alcohol intake Medications: -If you use any medications (prescriptions, exhl-cbe-vdspoju, supplements, herbal), always do so as directed [...] /uL 3.4-10 .8 normal Not Available [facility] ([facility]) [address] [place], [address], 06/16/2024 08:06:38 06/15/20 24 06/16/2024 CBC WITH DIFFE RENTI AL/PL ATELE T RBC 4.18 x10e6 /uL 4.14-5 .80 normal Not Available [facility] ([facility]) [address] [place], [address], 06/16/2024 08:06:38 06/15/2006/16/2024 CBC WITH DIFFE RENTI AL/PL ATELE T hemoglobin 12.8 g/dL 13.0-1 7.7 below low normal Not Available [facility] ([facility]) [address] [place], [address], 06/16/2024 08:06:38 06/15/2006/16/2024 CBC WITH DIFFE RENTI AL/PL ATELE T hematocrit 38.9 % 37.5-5 1.0 normal Not Available [facility] ([facility]) [address] [place], [address], 06/16/2024 08:06:38 06/15/2006/16/2024 CBC WITH DIFFE RENTI AL/PL ATELE T MCV 93 fL 79-97 normal Not Available [facility] ([facility]) [address] [place], [address], 06/16/2024 08:06:38 06/15/2006/16/2024 CBC WITH DIFFE RENTI AL/PL ATELE T MCH 30.6 pg 26.6-3 3.0 normal Not Available [facility] ([facility]) [address] [place], [address], 06/16/2024 08:06:38 06/15/20 24 06/16/2024 CBC WITH DIFFE RENTI AL/PL ATELE T MCHC 32.9 g/dL 31.5-3 5.7 normal Not Available [facility] ([facility]) [address] [facility], [place], [address], 06/16/2024 08:06:38 06/15/20 24 06/16/2024 CBC WITH DIFFE RENTI AL/PL ATELE T RDW 12.8 % 11.6-1 5.4 Not Available [facility] ([facility]) [address] [facility], [place], [address], 06/16/2024 08:06:38 06/15/20 24 06/16/2024 CBC WITH DIFFE RENTI AL/PL ATELE T platelets 191 x10e3 /uL 150-45 0 normal Not Available [facility] ([facility]) [address] [facility], [place], [address], 06/16/2024 08:06:38 06/15/20 24 06/16/2024 CBC WITH DIFFE RENTI AL/PL ATELE T neutrophils 58 % not estab. normal Not Available [facility] ([facility]) [address] [facility], [place], [address], 06/16/2024 08:06:38 06/15/20 24 06/16/2024 CBC WITH DIFFE RENTI AL/PL ATELE T lymphs 29 % not estab. normal Not Available [facility] ([facility]) [address] [facility], [place], [address], 06/16/2024 08:06:38 06/15/20 24 06/16/2024 CBC WITH DIFFE RENTI AL/PL ATELE T monocytes 9 % not estab. normal Not Available [facility] ([facility]) [address] [facility], [place], [address], 06/16/2024 08:06:38 06/15/20 24 06/16/2024 CBC WITH DIFFE RENTI AL/PL ATELE T eos 3 % not estab. normal Not Available [facility] ([facility]) [address] [facility], [place], [address], 06/16/2024 08:06:38 06/15/20 24 06/16/2024 CBC WITH DIFFE RENTI AL/PL ATELE T basos 1 % not estab. normal Not Available [facility] ([facility]) [address] [facility], [place], [address], 06/16/2024 08:06:38 06/15/20 24 06/16/2024 CBC WITH DIFFE RENTI AL/PL ATELE T immature cells REAL ESTATE ASSOCIATE Not Available [facility] ([facility]) [address] [facility], [place], [address], 06/16/2024 08:06:38 06/15/20 24 06/16/2024 CBC WITH DIFFE RENTI AL/PL ATELE T neutrophils (absolute) 2.8 x10e3 /uL 1.4-7. 0 normal Not Available [facility] ([facility]) [address] [place], [address], 06/16/2024 08:06:38 06/15/20 24 06/16/2024 CBC WITH DIFFE RENTI AL/PL ATELE T lymphs (absolute) 1.4 x10e3 /uL 0.7-3. 1 normal Not Available [facility] ([facility]) [address] [place], [address], 06/16/2024 08:06:38 06/15/20 24 06/16/2024 CBC WITH DIFFE RENTI AL/PL ATELE T monocytes(ab solute) 0.4 x10e3 /uL 0.1-0. 9 normal Not Available [facility] ([facility]) [address] [place], [address], 06/16/2024 08:06:38 06/15/20 24 06/16/2024 CBC WITH DIFFE RENTI AL/PL ATELE T eos (absolute) 0.2 x10e3 /uL 0.0-0. 4 normal Not Available [facility] ([facility]) [address] [facility], [place], [address], 06/16/2024 08:06:38 06/15/20 24 06/16/2024 CBC WITH DIFFE RENTI AL/PL ATELE T baso (absolute) 0.0 x10e3 /uL 0.0-0. 2 normal Not Available [facility] ([facility]) [address] [facility], [place], [address], 06/16/2024 08:06:38 06/15/20 24 06/16/2024 CBC WITH DIFFE RENTI AL/PL ATELE T immature granulocytes 0 % not estab. Not Available [facility] ([facility]) [address] [facility], [place], [address], 06/16/2024 08:06:38 06/15/20 24 06/16/2024 CBC WITH DIFFE RENTI AL/PL ATELE T immature grans (abs) 0.0 x10e3 /uL 0.0-0. 1 Not Available [facility] ([facility]) [address] [facility], [place], [address], 06/16/2024 08:06:38 06/15/20 24 06/16/2024 CBC WITH DIFFE RENTI AL/PL ATELE T NRBC REAL ESTATE ASSOCIATE Not Available [facility] ([facility]) [address] [facility], [place], [address], 06/16/2024 08:06:38 06/15/20 24 06/16/2024 CBC WITH DIFFE RENTI AL/PL ATELE T hematology comments: REAL ESTATE ASSOCIATE Not Available [facility] ([facility]) [address] [facility], [place], [address], 06/16/2024 08:06:38 06/15/20 24 06/16/2024 COMP. METAB OLIC PANEL (14) glucose 96 mg/dL 70-99 normal Not Available [facility] ([facility]) [address] [facility] [place], [address], 06/16/2024 08:06:39 06/15/20 24 06/16/2024 COMP. METAB OLIC PANEL (14) BUN 16 mg/dL 8-27 normal Not Available [facility] ([facility]) [address] [facility] [place], [address], 06/16/2024 08:06:39 06/15/20 24 06/16/2024 COMP. METAB OLIC PANEL (14) creatinine 0.95 mg/dL 0.76-1 .27 normal Not Available [facility] ([facility]) [address] [facility] [place], [address], 06/16/2024 08:06:39 06/15/20 24 06/16/2024 COMP. METAB OLIC PANEL (14) eGFR 88 mL/mi n/1.7 3 >59 normal Not Available [facility] ([facility]) [address] [facility] [place], [address], 06/16/2024 08:06:39 06/15/20 24 06/16/2024 COMP. METAB OLIC PANEL (14) BUN/creatini ne ratio 17 10-24 normal Not Available [facility] ([facility]) [address] [place], [address], 06/16/2024 08:06:39 06/15/20 24 06/16/2024 COMP. METAB OLIC PANEL (14) sodium 142 mmol/ L 134-14 4 normal Not Available [facility] ([facility]) [address] [place], [address], 06/16/2024 08:06:39 06/15/20 24 06/16/2024 COMP. METAB OLIC PANEL (14) potassium 4.4 mmol/ L 3.5-5. 2 normal Not Available [facility] ([facility]) [address] [place], [address], 06/16/2024 08:06:39 06/15/20 24 06/16/2024 COMP. METAB OLIC PANEL (14) chloride 105 mmol/ L 96-106 normal Not Available [facility] ([facility]) [address] [place], [address], 06/16/2024 08:06:39 06/15/20 24 06/16/2024 COMP. METAB OLIC PANEL (14) carbon dioxide, total 24 mmol/ L 20-29 normal Not Available [facility] ([facility]) [address] [place], [address], 06/16/2024 08:06:39 06/15/20 24 06/16/2024 COMP. METAB OLIC PANEL (14) calcium 9.2 mg/dL 8.6-10 .2 normal Not Available [facility] ([facility]) [address] [place], [address], 06/16/2024 08:06:39 06/15/20 24 06/16/2024 COMP. METAB OLIC PANEL (14) protein, total 6.4 g/dL 6.0-8. 5 normal Not Available [facility] ([facility]) [address] [place], [address], 06/16/2024 08:06:39 06/15/20 24 06/16/2024 COMP. METAB OLIC PANEL (14) albumin 4.2 g/dL 3.9-4. 9 normal Not Available [facility] ([facility]) [address] [place], [address], 06/16/2024 08:06:39 06/15/20 24 06/16/2024 COMP. METAB OLIC PANEL (14) globulin, total 2.2 g/dL 1.5-4. 5 Not Available [facility] ([facility]) [address] [place], [address], 06/16/2024 08:06:39 06/15/20 24 06/16/2024 COMP. METAB OLIC PANEL (14) bilirubin, total 0.4 mg/dL 0.0-1. 2 normal Not Available [facility] ([facility]) [address] [facility] [place], [address], 06/16/2024 08:06:39 06/15/20 24 06/16/2024 COMP. METAB OLIC PANEL (14) alkaline phosphatase 84 IU/L 44-121 normal Not Available [facility] ([facility]) [address] [facility] [place], [address], 06/16/2024 08:06:39 06/15/20 24 06/16/2024 COMP. METAB OLIC PANEL (14) AST (SGOT) 21 IU/L 0-40 normal Not Available [facility] ([facility]) [address] [facility] [place], [address], 06/16/2024 08:06:39 06/15/20 24 06/16/2024 COMP. METAB OLIC PANEL (14) ALT (SGPT) 21 IU/L 0-44 normal Not Available [facility] ([facility]) [address] [facility], [place], [address], 06/16/2024 08:06:39 06/15/20 24 06/16/2024 URINA LYSIS , COMPL ETE specific gravity 1.023 1.005- 1.030 normal Not Available [facility] ([facility]) [address] [facility] [place], [address], 06/16/2024 08:06:39 06/15/20 24 06/16/2024 URINA LYSIS , COMPL ETE pH 5.5 5.0-7. 5 normal Not Available [facility] ([facility]) [address] [facility] [place], [address], 06/16/2024 08:06:39 06/15/20 24 06/16/2024 URINA LYSIS , COMPL ETE urine-color YELLOW yellow Not Available [facility] ([facility]) [address] [facility], [place], [address], 06/16/2024 08:06:39 06/15/20 24 06/16/2024 URINA LYSIS , COMPL ETE appearance CLEAR clear Not Available [facility] ([facility]) [address] [facility], [place], [address], 06/16/2024 08:06:39 06/15/20 24 06/16/2024 URINA LYSIS , COMPL ETE WBC esterase NEGATI VE negati ve Not Available [facility] ([facility]) [address] [facility], [place], [address], 06/16/2024 08:06:39 06/15/20 24 06/16/2024 URINA LYSIS , COMPL ETE protein NEGATI VE negati ve/tra ce Not Available [facility] ([facility]) [address] [facility], [place], [address], 06/16/2024 08:06:39 06/15/20 24 06/16/2024 URINA LYSIS , COMPL ETE glucose NEGATI VE negati ve Not Available [facility] ([facility]) [address] [facility], [place], [address], 06/16/2024 08:06:39 06/15/20 24 06/16/2024 URINA LYSIS , COMPL ETE ketones NEGATI VE negati ve Not Available [facility] ([facility]) [address] [facility], [place], [address], 06/16/2024 08:06:39 06/15/20 24 06/16/2024 URINA LYSIS , COMPL ETE occult blood NEGATI VE negati ve Not Available [facility] ([facility]) [address] [place], [address], 06/16/2024 08:06:39 06/15/20 24 06/16/2024 URINA LYSIS , COMPL ETE bilirubin NEGATI VE negati ve Not Available [facility] ([facility]) [address] [place], [address], 06/16/2024 08:06:39 06/15/20 24 06/16/2024 URINA LYSIS , COMPL ETE urobilinogen ,semi-qn 0.2 mg/dL 0.2-1. 0 normal Not Available [facility] ([facility]) [address] [place], [address], 06/16/2024 08:06:39 06/15/20 24 06/16/2024 URINA LYSIS , COMPL ETE nitrite, urine NEGATI VE negati ve Not Available [facility] ([facility]) [address] [facility], [place], [address], 06/16/2024 08:06:39 06/15/20 24 06/16/2024 URINA LYSIS , COMPL ETE microscopic examination COMMEN T Micro scopi c follo ws if indic ated. Not Available [facility] ([facility]) [address] [facility], [place], [address], 06/16/2024 08:06:39 06/15/20 24 06/16/2024 URINA LYSIS , COMPL ETE microscopic examination SEE BELOW: Micro scopi c was indic ated and was perfo rmed. Not Available [facility] ([facility]) [address] [facility], [place], [address], 06/16/2024 08:06:39 06/15/20 24 06/16/2024 URINA LYSIS , COMPL ETE WBC NONE SEEN /hpf 0 - 5 Not Available [facility] ([facility]) [address] [place], [address], 06/16/2024 08:06:39 06/15/20 24 06/16/2024 URINA LYSIS , COMPL ETE RBC NONE SEEN /hpf 0 - 2 Not Available [facility] ([facility]) [address] [facility], [place], [address], 06/16/2024 08:06:39 06/15/20 24 06/16/2024 URINA LYSIS , COMPL ETE epithelial cells (non renal) NONE SEEN /hpf 0 - 10 Not Available [facility] ([facility]) [address] [facility], [place], [address], 06/16/2024 08:06:39 06/15/20 24 06/16/2024 URINA LYSIS , COMPL ETE epithelial cells (renal) REAL ESTATE ASSOCIATE Not Available [facility] ([facility]) [address] [facility], [place], [address], 06/16/2024 08:06:39 06/15/20 24 06/16/2024 URINA LYSIS , COMPL ETE casts NONE SEEN /lpf none seen Not Available [facility] ([facility]) [address] [facility], [place], [address], 06/16/2024 08:06:39 06/15/20 24 06/16/2024 URINA LYSIS , COMPL ETE cast type REAL ESTATE ASSOCIATE Not Available [facility] ([facility]) [address] [facility], [place], [address], 06/16/2024 08:06:39 06/15/20 24 06/16/2024 URINA LYSIS , COMPL ETE crystals REAL ESTATE ASSOCIATE Not Available [facility] ([facility]) [address] [place], [address], 06/16/2024 08:06:39 06/15/20 24 06/16/2024 URINA LYSIS , COMPL ETE crystal type REAL ESTATE ASSOCIATE Not Available [facility] ([facility]) [address] [place], [address], 06/16/2024 08:06:39 06/15/20 24 06/16/2024 URINA LYSIS , COMPL ETE mucus threads REAL ESTATE ASSOCIATE Not Available [facility] ([facility]) [address] [facility], [place], [address], 06/16/2024 08:06:39 06/15/20 24 06/16/2024 URINA LYSIS , COMPL ETE bacteria NONE SEEN none seen/f ew Not Available [facility] ([facility]) [address] [facility], [place], [address], 06/16/2024 08:06:39 06/15/20 24 06/16/2024 URINA LYSIS , COMPL ETE yeast REAL ESTATE ASSOCIATE Not Available [facility] ([facility]) [address] [facility], [place], [address], 06/16/2024 08:06:39 06/15/20 24 06/16/2024 URINA LYSIS , COMPL ETE trichomonas REAL ESTATE ASSOCIATE Not Available [facility] ([facility]) [address] [facility], [place], [address], 06/16/2024 08:06:39 06/15/20 24 06/16/2024 URINA LYSIS , COMPL ETE comment REAL ESTATE ASSOCIATE Not Available [facility] ([facility]) [address] [facility], [place], [address], 06/16/2024 08:06:39 01/12/20 25 01/12/2025 CBC WITH DIFFE RENTI AL/PL ATELE T WBC 4.9 x10e3 /uL 3.4-10 .8 normal Not Available [facility] ([facility]) [address] [facility], [place], [address], 01/17/2025 12:05:48 01/12/20 25 01/12/2025 CBC WITH DIFFE RENTI AL/PL ATELE T RBC 4.42 x10e6 /uL 4.14-5 .80 normal Not Available [facility] ([facility]) [address] [facility], [place], [address], 01/17/2025 12:05:48 01/12/20 25 01/12/2025 CBC WITH DIFFE RENTI AL/PL ATELE T hemoglobin 13.5 g/dL 13.0-1 7.7 normal Not Available [facility] ([facility]) [address] [facility], [place], [address], 01/17/2025 12:05:48 01/12/20 25 01/12/2025 CBC WITH DIFFE RENTI AL/PL ATELE T hematocrit 41.3 % 37.5-5 1.0 normal Not Available [facility] ([facility]) [address] [facility], [place], [address], 01/17/2025 12:05:48 01/12/2001/12/2025 CBC WITH DIFFE RENTI AL/PL ATELE T MCV 93 fL 79-97 normal Not Available [facility] ([facility]) [address] [place], [address], 01/17/2025 12:05:48 01/12/20 25 01/12/2025 CBC WITH DIFFE RENTI AL/PL ATELE T MCH 30.5 pg 26.6-3 3.0 normal Not Available [facility] ([facility]) [address] [place], [address], 01/17/2025 12:05:48 01/12/2001/12/2025 CBC WITH DIFFE RENTI AL/PL ATELE T MCHC 32.7 g/dL 31.5-3 5.7 normal Not Available [facility] ([facility]) [address] [place], [address], 01/17/2025 12:05:48 01/12/2001/12/2025 CBC WITH DIFFE RENTI AL/PL ATELE T RDW 12.9 % 11.6-1 5.4 Not Available [facility] ([facility]) [address] [place], [address], 01/17/2025 12:05:48 01/12/2001/12/2025 CBC WITH DIFFE RENTI AL/PL ATELE T platelets 218 x10e3 /uL 150-45 0 normal Not Available [facility] ([facility]) [address] [facility], [place], [address], 01/17/2025 12:05:48 01/12/20 25 01/12/2025 CBC WITH DIFFE RENTI AL/PL ATELE T neutrophils 55 % not estab. normal Not Available [facility] ([facility]) [address] [facility], [place], [address], 01/17/2025 12:05:48 01/12/20 25 01/12/2025 CBC WITH DIFFE RENTI AL/PL ATELE T lymphs 29 % not estab. normal Not Available [facility] ([facility]) [address] [facility], [place], [address], 01/17/2025 12:05:48 01/12/20 25 01/12/2025 CBC WITH DIFFE RENTI AL/PL ATELE T monocytes 10 % not estab. normal Not Available [facility] ([facility]) [address] [place], [address], 01/17/2025 12:05:48 01/12/20 25 01/12/2025 CBC WITH DIFFE RENTI AL/PL ATELE T eos 5 % not estab. normal Not Available [facility] ([facility]) [address] [facility], [place], [address], 01/17/2025 12:05:48 01/12/20 25 01/12/2025 CBC WITH DIFFE RENTI AL/PL ATELE T basos 1 % not estab. normal Not Available [facility] ([facility]) [address] [facility], [place], [address], 01/17/2025 12:05:48 01/12/20 25 01/12/2025 CBC WITH DIFFE RENTI AL/PL ATELE T immature cells REAL ESTATE ASSOCIATE Not Available [facility] ([facility]) [address] [facility], [place], [address], 01/17/2025 12:05:48 01/12/2001/12/2025 CBC WITH DIFFE RENTI AL/PL ATELE T neutrophils (absolute) 2.7 x10e3 /uL 1.4-7. 0 normal Not Available [facility] ([facility]) [address] [place], [address], 01/17/2025 12:05:48 01/12/20 25 01/12/2025 CBC WITH DIFFE RENTI AL/PL ATELE T lymphs (absolute) 1.4 x10e3 /uL 0.7-3. 1 normal Not Available [facility] ([facility]) [address] [place], [address], 01/17/2025 12:05:48 01/12/20 25 01/12/2025 CBC WITH DIFFE RENTI AL/PL ATELE T monocytes(ab solute) 0.5 x10e3 /uL 0.1-0. 9 normal Not Available [facility] ([facility]) [address] [place], [address], 01/17/2025 12:05:48 01/12/20 25 01/12/2025 CBC WITH DIFFE RENTI AL/PL ATELE T eos (absolute) 0.2 x10e3 /uL 0.0-0. 4 normal Not Available [facility] ([facility]) [address] [place], [address], 01/17/2025 12:05:48 01/12/20 25 01/12/2025 CBC WITH DIFFE RENTI AL/PL ATELE T baso (absolute) 0.1 x10e3 /uL 0.0-0. 2 normal Not Available [facility] ([facility]) [address] [place], [address], 01/17/2025 12:05:48 01/12/20 25 01/12/2025 CBC WITH DIFFE RENTI AL/PL ATELE T immature granulocytes 0 % not estab. Not Available [facility] ([facility]) [address] [facility], [place], [address], 01/17/2025 12:05:48 01/12/20 25 01/12/2025 CBC WITH DIFFE RENTI AL/PL ATELE T immature grans (abs) 0.0 x10e3 /uL 0.0-0. 1 Not Available [facility] ([facility]) [address] [facility], [place], [address], 01/17/2025 12:05:48 01/12/20 25 01/12/2025 CBC WITH DIFFE RENTI AL/PL ATELE T NRBC REAL ESTATE ASSOCIATE Not Available [facility] ([facility]) [address] [facility], [place], [address], 01/17/2025 12:05:48 01/12/20 25 01/12/2025 CBC WITH DIFFE RENTI AL/PL ATELE T hematology comments: REAL ESTATE ASSOCIATE Not Available [facility] ([facility]) [address] [facility], [place], [address], 01/17/2025 12:05:48 01/12/20 25 01/12/2025 COMP. METAB OLIC PANEL (14) glucose 101 mg/dL 70-99 above high normal Not Available [facility] ([facility]) [address] [facility], [place], [address], 01/17/2025 12:05:49 01/12/20 25 01/12/2025 COMP. METAB OLIC PANEL (14) BUN 15 mg/dL 8-27 normal Not Available [facility] ([facility]) [address] [facility], [place], [address], 01/17/2025 12:05:49 01/12/20 25 01/12/2025 COMP. METAB OLIC PANEL (14) creatinine 0.92 mg/dL 0.76-1 .27 normal Not Available [facility] ([facility]) [address], [place], [address], 01/17/2025 12:05:49 01/12/20 25 01/12/2025 COMP. METAB OLIC PANEL (14) eGFR 91 mL/mi n/1.7 3 >59 normal Not Available [facility] ([facility]) [address], [place], [address], 01/17/2025 12:05:49 01/12/20 25 01/12/2025 COMP. METAB OLIC PANEL (14) BUN/creatini ne ratio 16 10-24 normal Not Available [facility] ([facility]) [address] [place], [address], 01/17/2025 12:05:49 01/12/20 25 01/12/2025 COMP. METAB OLIC PANEL (14) sodium 139 mmol/ L 134-14 4 normal Not Available [facility] ([facility]) [address], [place], [id number], 01/17/2025 12:05:49 01/12/20 25 01/12/2025 COMP. METAB OLIC PANEL (14) potassium 4.6 mmol/ L 3.5-5. 2 normal Not Available [facility] ([place] [facility]) [address] [facility] [place], [address], 01/17/2025 12:05:49 01/12/20 25 01/12/2025 COMP. METAB OLIC PANEL (14) chloride 101 mmol/ L 96-106 normal Not Available [facility] ([place] [facility]) [address] [facility] [place], [address], 01/17/2025 12:05:49 01/12/20 25 01/12/2025 COMP. METAB OLIC PANEL (14) carbon dioxide, total 23 mmol/ L 20-29 normal Not Available [facility] ([place] [facility]) [address] [facility] [place], [address], 01/17/2025 12:05:49 01/12/20 25 01/12/2025 COMP. METAB OLIC PANEL (14) calcium 9.1 mg/dL 8.6-10 .2 normal Not Available [facility] [facility]) [address] [place], [address], 01/17/2025 12:05:49 01/12/20 25 01/12/2025 COMP. METAB OLIC PANEL (14) protein, total 6.8 g/dL 6.0-8. 5 normal Not Available [facility] ([facility]) [address] [place], [address], 01/17/2025 12:05:49 01/12/20 25 01/12/2025 COMP. METAB OLIC PANEL (14) albumin 4.3 g/dL 3.9-4. 9 normal Not Available [facility] ([facility]) [address] [place], [address], 01/17/2025 12:05:49 01/12/20 25 01/12/2025 COMP. METAB OLIC PANEL (14) globulin, total 2.5 g/dL 1.5-4. 5 Not Available [facility] ([facility]) [address] [place], [address], 01/17/2025 12:05:49 01/12/20 25 01/12/2025 COMP. METAB OLIC PANEL (14) bilirubin, total 0.5 mg/dL 0.0-1. 2 normal Not Available [facility] ([facility]) [address] [place], [address], 01/17/2025 12:05:49 01/12/20 25 01/12/2025 COMP. METAB OLIC PANEL (14) alkaline phosphatase 97 IU/L 44-121 normal Not Available [facility] ([facility]) [address] [place], [address], 01/17/2025 12:05:49 01/12/20 25 01/12/2025 COMP. METAB OLIC PANEL (14) AST (SGOT) 23 IU/L 0-40 normal Not Available [facility] ([facility]) [address] [place], [address], 01/17/2025 12:05:49 01/12/20 25 01/12/2025 COMP. METAB OLIC PANEL (14) ALT (SGPT) 23 IU/L 0-44 normal Not Available [facility] ([facility]) [address] [place], [address], 01/17/2025 12:05:49 01/12/20 25 01/12/2025 LIPID PANEL cholesterol, total 200 mg/dL 100-19 9 above high normal Not Available [facility] ([facility]) [address] [place], [address], 01/17/2025 12:05:50 01/12/20 25 01/12/2025 LIPID PANEL triglyceride s 112 mg/dL 0-149 normal Not Available [facility] ([facility]) [address] [place], [address], 01/17/2025 12:05:50 01/12/20 25 01/12/2025 LIPID PANEL HDL cholesterol 64 mg/dL >39 normal Not Available [facility] ([facility]) [address] [place], [address], 01/17/2025 12:05:50 01/12/20 25 01/12/2025 LIPID PANEL VLDL cholesterol paulino 20 mg/dL 5-40 Not Available [facility] ([facility]) [address] [place], [address], 01/17/2025 12:05:50 01/12/20 25 01/12/2025 LIPID PANEL LDL chol calc ([facility]) 116 mg/dL 0-99 above high normal Not Available [facility] ([facility]) [address] [place], [address], 01/17/2025 12:05:50 01/12/2001/12/2025 LIPID PANEL LDL calc comment: [employer] Not Available [facility] ([facility]) [address] [place], [address], 01/17/2025 12:05:50 01/12/20 25 01/17/2025 CARBA MAZEP INE-1 0,11 EPOXI DE carbamazepin e-10,11 epoxide 1.4 ug/mL 0.4 - 4.0 This test was devel claudy and its perfo rmanc e david cteri stics deter mined by [facility]. It has not been clear ed or appro gisela by the Food and Drug Admin istra tion. Not Available [facility] ([facility]) [address] [facility], [place], [address], 01/17/2025 12:05:51 01/12/20 25 01/12/2025 TSH TSH 0.648 uIU/m L 0.450- 4.500 normal Not Available [facility] ([facility]) [address] [place], [address], 01/17/2025 12:05:52 01/12/20 25 01/12/2025 URIC ACID uric acid 5.0 mg/dL 3.8-8. 4 normal Thera ellie dowling t for gout patie nts: <6.0 Not Available [facility] ([facility]) [address] [place], [address], 01/17/2025 12:05:53 08/16/2008/17/2025 BASIC METAB OLIC PANEL (8) glucose 96 mg/dL 70-99 normal Not Available [facility] ([facility]) [address] [place], [address], 08/17/2025 08:06:41 08/16/20 25 08/17/2025 BASIC METAB OLIC PANEL (8) BUN 15 mg/dL 8-27 normal Not Available [facility] ([facility]) [address] [facility] [place], [address], 08/17/2025 08:06:41 08/16/20 25 08/17/2025 BASIC METAB OLIC PANEL (8) creatinine 0.96 mg/dL 0.76-1 .27 normal Not Available [facility] ([facility]) [address] [facility] [place], [address], 08/17/2025 08:06:41 08/16/2008/17/2025 BASIC METAB OLIC PANEL (8) eGFR 86 mL/mi n/1.7 3 >59 normal Not Available [facility] ([facility]) [address] [facility] [place], [address], 08/17/2025 08:06:41 08/16/2008/17/2025 BASIC METAB OLIC PANEL (8) BUN/creatini ne ratio 16 10-24 normal Not Available [facility] ([facility]) [address] [place], [address], 08/17/2025 08:06:41 08/16/20 25 08/17/2025 BASIC METAB OLIC PANEL (8) sodium 140 mmol/ L 134-14 4 normal Not Available [facility] ([facility]) [address] [place], [address], 08/17/2025 08:06:41 08/16/2008/17/2025 BASIC METAB OLIC PANEL (8) potassium 4.3 mmol/ L 3.5-5. 2 normal Not Available [facility] ([facility]) [address] [place], [address], 08/17/2025 08:06:41 08/16/20 25 08/17/2025 BASIC METAB OLIC PANEL (8) chloride 101 mmol/ L 96-106 normal Not Available [facility] ([facility]) [address] [place], [address], 08/17/2025 08:06:41 08/16/2008/17/2025 BASIC METAB OLIC PANEL (8) carbon dioxide, total 25 mmol/ L 20-29 normal Not Available [facility] ([facility]) [address] [place], [address], 08/17/2025 08:06:41 08/16/2008/17/2025 BASIC METAB OLIC PANEL (8) calcium 9.1 mg/dL 8.6-10 .2 normal Not Available [facility] ([facility]) [address] [place], [address], 08/17/2025 08:06:41 08/16/2008/17/2025 LIPID PANEL cholesterol, total 178 mg/dL 100-19 9 normal Not Available [facility] ([facility]) [address] [place], [address], 08/17/2025 08:06:42 08/16/2008/17/2025 LIPID PANEL triglyceride s 65 mg/dL 0-149 normal Not Available [facility] ([facility]) [address] [place], [address], 08/17/2025 08:06:42 08/16/20 25 08/17/2025 LIPID PANEL HDL cholesterol 73 mg/dL >39 normal Not Available [facility] ([facility]) [address] [place], [address], 08/17/2025 08:06:42 08/16/20 25 08/17/2025 LIPID PANEL VLDL cholesterol paulino 12 mg/dL 5-40 Not Available [facility] ([facility]) [address] [place], [address], 08/17/2025 08:06:42 08/16/20 25 08/17/2025 LIPID PANEL LDL chol calc (nih) 93 mg/dL 0-99 Not Available [facility] ([facility]) [address] [facility], [place], [address], 08/17/2025 08:06:42 08/16/2008/17/2025 LIPID PANEL LDL calc comment: [employer] Not Available [facility] ([facility]) [address] [facility], [place], [address], 08/17/2025 08:06:42 08/16/2008/17/2025 URIC ACID uric acid 5.4 mg/dL 3.8-8. 4 normal Thera peuti c targe t for gout patie nts: <6.0 Not Available [facility] ([facility]) [address] [facility], [place], [address], 08/17/2025 08:06:42 08/07/2008/02/2024 US, kidne y No observ ation record ed. [facility] [address], [place], [address], 08/07/2024 16:52:28 08/12/2003/22/2022 US, renal No observ ation record ed. Not Available 08:46:24 08/12/2006/28/2023 MRI, cervi paulino spine , w/o contr ast No observ ation record ed. Not Available 08:47:54 08/12/2006/28/2023 MRI, lumba r spine , w/o contr ast No observ ation record ed. Not Available 08:55:45 10/09/2010/02/2024 polys omnog celina No observ ation record ed. [facility] [address], [place], [address], 10/11/2024 11:05:58 01/01/20 25 elect williams holm am No observ ation record ed. MARCELA [email or web address], [place], [address], 12/31/2024 16:41:03 01/02/20 25 12/31/2024 garima holm am No observ ation record ed. AKRON [email or web address] [address], [place], [address], 01/01/2025 15:50:36 Result Notes None recorded. Problems Name Problem SNOMED Code Status Onset Date Resolution Date Notes Provider Name and Address Organization Details Recorded Time Seizure disorder 074705202 Active 2011 Seizure disorder Not Available [facility] 4 01:31:27 Obstructi ve sleep apnea syndrome 01585116 Active 2019 Obstructi ve sleep apnea syndrome Not Available [facility] 4 01:31:28 Hypertens karly disorder 54138164 Active 2019 White coat syndrome with hypertens ion Not Available [facility] 4 01:31:28 Chronic gouty arthritis 06820054 Active 2019 Chronic idiopathi c gout of foot Cresencio Barbosa MD [address] [place] [address], [address] [place] [address], [address] , [place] [facility] 4 08:29:42 Barretts esophagus with dysplasia 18443748532 22203 Active 2019 Britt's esophagus with dysplasia Not Available [facility] 4 01:31:27 Hyperchol esterolem ia 11959888 Active 2019 Hyperchol esterolem ia Cresencio Barbosa MD [address] [place] [address], [address] [place] [address], [place], [address] , [place] [facility] 4 08:29:30 Kidney stone 39208808 Active 2019 Nephrolit hiasis Not Available [facility] 4 01:31:28 Osteoarth ritis of bilateral hip joints 47529809631 9105 Active 2021 Osteoarth ritis of both hips Not Available [facility] 4 01:31:27 Body mass index 30+ - obesity 693166405 Active 2022 Obesity (BMI 30-39.9) Cresencio Barbosa MD [address] [place] [address], [address] [place] [address], [place], [address] , [place] [facility] 4 08:31:09 Calcific tendiniti s of right ankle 04107994216 9104 Active 2023 Cresencio Barbosa MD [address] [place] [address], [address] [place] [address], [place], [address] , [place] [facility] 4 08:48:20 Benign prostatic hyperplas ia with outflow obstructi on 225602633 Active 2024 Cresencio Barbosa MD [address] [place] [address], [address] [place] [address], [place], [address] , [place] [facility] 5 16:18:23 Seasonal allergy 286572303 Active 2024 Padmini vilchis, [place] [facility] 5 14:59:17 Allergic reaction to bee sting 802801296 Active 2024 Cresencio Barbosa MD [address] [place] [address], [address] [place] [address], [place], [address] , [place] [facility] 5 15:50:14 Essential hypertens ion 88189947 Active 2024 Padmini Hernandez null, [place] [facility] 5 16:49:51 Problem Notes None recorded. Procedures Surgical History Date Name Laterality Status Provider Name and Address Organization Details Recorded Time 025 AWV - male prevention plan completed Cresencio Barbosa MD [address] [place] [address], [address] [place] [address], [address], [place] [facility] 12/31/2024 16:36:53 025 Advance Care Planning Consultation completed Cresencio Barbosa MD [address] [place] [address], [address] [place] [address], [address], [place] [facility] 12/31/2024 16:37:12 025 AWV - safety evaluation completed Cresencio Barbosa MD [address] [place] [address], [address] [place] [address], [address], [facility] 12/31/2024 16:37:00 024 Advance Care Planning Consultation completed [facility] 12/15/2023 08:07:35 024 AWV - safety evaluation completed [facility] 12/15/2023 08:07:35 024 AWV - male prevention plan [facility] 12/15/2023 08:07:35 prosthetic arthroplasty of hip completed Cresencio Barbosa MD [address] [place] [address], [address] [place] [address], [address], [facility] 12/15/2023 08:34:15 partial repair of rotator cuff completed Cresencio Barbosa MD [address] [place] [address], [address] [place] [address], [address], [facility] 12/15/2023 08:34:42 cholecystectomy completed Cresencio Barbosa MD [address] [place] [address], [address] [place] [address], [address], [facility] 12/15/2023 08:35:12 Imaging Results None recorded. Procedure Notes None recorded. Medical Equipment None Reported. Allergies Allergen ID Allergen Name Allergen Category Reaction Reaction Severity Criticality Documentation Date Start Date Code Code System Note Provider Name and Address Organization Details Recorded Time 927928 codeine medicatio n Not available Not available Not available 02/24/20232016 2670 RxNorm Not Available [facility] 19:37:03 508075 honey bee venom environme nt Not available Not available Not available 02/24/20232020 06049 7 RxNorm React ion: Anaph ylaxi s, sever ity: Sever e Not Available [facility] 19:37:04 Medications Name Sig Start Date Stop [...] Not Available Not Available No t Available docusate sodium 100 mg capsule TAKE [...] Not Available Not Available No t Available triamcinolo ne acetonide 0.1 %-emollient comb.no.45 [...] (BMI) Body weight Heart rate Oxygen saturation Systolic And Diastolic Provider Name and Address Organization Details Last Updated DateTime 5 176.5 cm 38 kg/m2 992011. 31 g 60 /min 97 % 130/86 mm[Hg] Hector [facility] 5 15:33:57 Date Recorded Systolic And Diastolic Provider Name and Address Organization Details Last Updated DateTime 02/23/2024 132/78 mm[Hg] Cresencio Barbosa MD [address] [place] [address], [address] [place] [address], [address], [facility] 02/23/2024 08:21:15 Date Recorded Body height Body mass index (BMI) Body weight Oxygen saturation Heart rate Body temperature Provider Name and Address Organization Details Last Updated DateTime 4 176.5 cm 37.9 kg/m2 590280. 09 g 98 % 63 /min 98.1 [degF] Padmini Va jae [facility] 4 08:09:56 Date Recorded Body height Body mass index (BMI) Body weight Respiratory rate Heart rate Systolic And Diastolic Provider Name and Address Organization Details Last Updated DateTime 4 176.5 cm 37.3 kg/m2 647441. 65 g 18 /min 78 /min 136/80 mm[Hg] Cresencio Barbosa MD [address] [place] [address], [address] [place] [address], [phone], [facility] 4 08:20:20 Date Recorded Systolic And Diastolic Provider Name and Address Organization Details Last Updated DateTime 07/08/2025 152/88 mm[Hg] Cresencio Barbosa MD [address] [place] [address], [address] [place] [address], [address], [facility] 07/08/2025 16:23:59 Date Recorded Body height Body mass index (BMI) Body weight Oxygen saturation Heart rate Provider Name and Address Organization Details Last Updated DateTime 07/08/2025 176.5 cm 35.7 kg/m2 474964.1 3 g 98 % 67 /min Padmini Hernandez [place] - [facility] 16:10:37 Social History Question Answer Notes LastModified by Organizat ion Details LastModified Time Tobacco Smoking Status Former Smoker Hector vilchis, [place] [facility] 12/31/2024 15:35:18 Do You Have An [...] Or The Highest Degree You Have Received? [id number] Information not available 12/31/2024 Who Is Your Employer? [employer] Information not available 12/31/2024 How Many Days Of Moderate To Strenuous Exercise, Like A Brisk Walk, Did You Do In The Last 7 Days? 0 Information not available 12/31/2024 How Many Times Per Week Do You Exercise? 1-2 Times Per Week Information not available 12/31/2024 When Did You Quit Smoking? 16+yearssincelastci cb Information not available 12/31/2024 Are There Any [...] Do You Have A Medical Power Of Floor Layer Tile? Yes Information not available 12/15/2023 What Was [...] not available 12/15/2023 What is your occupation? [employer] Information not available 12/31/2024 Do you have difficulty dressing, bathing, grooming, or toileting? No Information not available 12/15/2023 What is your exercise level? Moderate niharkia Information not available 12/31/2024 Mental Status Question Answer Note LastModified by Organizat ion Details LastModified Time Do you feel stressed (tense, restless, nervous, or anxious, or unable to sleep at night)? [id number] Information not available 12/15/2023 Do you have difficulty concentrating, remembering or making decisions? No Information no t available 12/15/2023 Family History Nothing Reported. Medical History No medical history recorded. Immunizations Vaccine Type Date Status Note Provider Nam jae and Address Organization Details Recorded Time zoster live 7 completed Not Available [facility] 12/02/2023 01:31:28 Tdap 7 completed Not Available [facility] 12/02/2023 01:31:28 pneumococcal polysaccharide PPV23 2 completed Not Available [facility] 12/02/2023 01:31:28 DT (pediatric) 8 completed Not Available [facility] 12/02/2023 01:31:28 DT (pediatric) 7 completed Not Available [facility] 12/02/2023 01:31:28 COVID-19, mRNA, LNP-S, PF, 100 mcg/0.5mL dose or 50 mcg/0.25mL dose 1 completed Not Available [facility] 12/02/2023 01:31:28 COVID-19, mRNA, LNP-S, PF, 100 mcg/0.5mL dose or 50 mcg/0.25mL dose 1 completed Not Available [facility] 12/02/2023 01:31:28 Past Encounters Encounter ID Performer Location Encounter Start Date Encounter Closed Date Diagnosis/Indication Diagnosis SNOMED-CT Code Diagnosis ICD10 Code Diagnosis IMO Codes Diagnosis Note [id number] Cresencio Barbosa MD [facility] [place] [address] 04/13/2023 13:04:59 04/13/2023 14:26:23 Dizziness 042641332 R42 Due to his persistent symptoms we [...] doing much better.. ETL Hypertensive disorder 38 996499 I10 Well-contr olled on atenolol 100 mg daily and amlodipine 10 mg daily we will continue present dose and hopefully he can lose some more weight and we reviewed his salt control once again. Obstructiv e sleep apnea syndrome 03139293 G47.33 He continues to do well using his CPAP machine encourage patient to continue to lose more weight to improve his sleep issues. Seizure disorder 1397122 02 G40.909 No recent episodes on Tegretol 400 mg twice a day we will check a level today. [id number] Cresencio Barbosa MD [facility] [place] [address] 06/12/2023 08:41:38 06/12/2023 11:24:51 Dizziness 190194145 R42 Symptoms have resolved we will hold off on further work-up but he will call us if symptoms restart once again he will monitor for symptoms if he does lose weight because he might be hypotensiv e do to his 2 blood pressure medicines. Hypertensive disorder 38 742209 I10 Still well controlled on atenolol 100 mg daily and amlodipine 10 mg daily. We will continue to monitor for hypotensio n specially if he does lose some weight. Seizure disorder 0210173 02 G40.909 No recent episodes on Tegretol 400 mg twice a day we will check a level today. [id number] Cresencio Barbosa MD [facility] [place] [address] 12/15/2023 07:58:51 12/15/2023 09:04:25 Adult health examination 384433492 Z00.00 [place] is stable but noted weight [...] endoscopy every 3 years. Hypertensive disorder 38 373758 I10 Well-contr olled today. We will have him recheck his blood pressure at home and recorded and follow-up in 1 month. We will continue amlodipine 10 mg daily and atenolol 100 mg daily. Pain of ri ght ankle joint 0903871548 2572962 M25.571 Possible gout and also osteoarthr itis. We will obtain an x-ray to rule out severe arthritis. 12-26-23: (LM) reported x-ray showing calcific tendinosis of the Achilles tendon. Await callback for further management if needed or possible Ortho consult. ETL Seizure disorder 0143354 02 G40.909 No recent episodes on Tegretol 400 mg twice a day we will check a level today. Mai shelley with dysplasia 9619983888 241141 K22.719 Has regular follow-up with GI for EGD last 1 2020 scheduled for another 1 in April of this year. Hypercholesterolemia 136 69257 E78.00 Maintain simvastati n 40 mg daily and we will check cholestero l and liver function test. Chronic go uty arthritis 00633079 M1A.0790 Will check uric acid levels and allopurino l 200 mg daily which we will continue. Reviewed dietary changes are restrictio ns once again. Obstructiv e sleep apnea syndrome 48646232 G47.33 He continues to do well using his CPAP machine encourage patient to continue to lose more weight to improve his sleep issues. [id number] Cresencio Barbosa MD [facility]_ _[address] [place] [address] 01/18/2024 08:04:35 01/18/2024 08:47:45 Hypertensive disorder 52098923 I10 Still poorly controlled with weight gain. After discussion patient agreed to add losartan 25 mg daily. Will continue amlodipine 10 mg in the morning and atenolol 100 mg at night. Will see him back in a month with blood pressure readings reviewed salt control once again. Calcific t endinitis of right ankle 7189691742 04024 M65.271 Patient declined any orthopedic consults advised to use warm compresses at home and Voltaren gel while at work. Avoid oral NSAIDs due to his blood pressure issues. [id number] Cresencio Barbosa MD [facility] [place] [address] 02/23/2024 08:03:19 02/23/2024 11:00:45 Hypertensive disorder 54624532 I10 Presently well-contr olled with the addition of losartan 25 mg daily which we will continue. Maintain atenolol 100 mg daily and amlodipine 10 mg daily as well. He will continue to control his salt intake and maintain low impact cardio exercises regularly. Body mass index 30+ - obesity 874520176 E66.9 Very much encouraged by his 5 pound weight loss over the last month. Continue to give him a target of 250 pounds for now hopefully even less. Reviewed caloric control once again. We will see him back in 4 months [id number] MD VIKASH Noriega_[facility]_ _[address] [place] [address] 06/13/2024 08:05:54 06/13/2024 08:33:44 Body mass index 30+ - obesity 901203424 Z68.37 Diet control we encouraged him to continue to lose the weight and low impact cardio exercises. Essential hypertension 06758614 I10 Seems to be doing well on losartan 25 mg daily, amlodipine 10 mg daily and atenolol 100 mg daily. Will continue present dose and encourage continued salt control. Morbid obesity 888485318 E66.01 Right flank pain 4610826 09 R10.9 Possible kidney stones. We will check a urinalysis as well as CBC and CMP. To confirm diagnosis. [id number] MD VIKASH [facility]ga[facility] [place] [address] 12/16/2024 13:24:00 12/16/2024 15:35:09 Viral upper respiratory tract infection 393494833 J06.9 452939 Will have him start Zyrtec 10 mg at bedtime to add to his usual intake of Claritin in the morning. Will also have him check himself for COVID and call us if it is positive. Will hold off on any antibiotic s for now but increase bedrest and fluids. Also monitor for productive cough and shortness of breath. Morbid obesity 856860069 E66.01 Body mass index 30+ - obesity 729483618 Z68.37 Seizure disorder 2416470 02 G40.909 Essential hypertension 69159626 I10 [id number] MD VIKASH Noriega[facility] [place] [address] 12/31/2024 15:24:35 01/02/2025 23:43:17 Adult health examination 784426268 Z00.00 Bismark is doing generally well and [...] ETL Screening for malignant neoplasm of colon 105504667 Z12.11 Barretts e sophagus with dysplasia 3257041279 946104 K22.719 Will continue to use omeprazole 20 mg twice a day and we reviewed dyspepsia diet changes. Seizure disorder 8624746 02 G40.909 Well-contr olled on carbamazep ine 400 mg 3 times a day which we will continue and check levels. Body mass index 30+ - obesity 008338963 Z68.37 Continue to teach caloric restrictio n and start low impact cardio exercises. Will check TSH level. Hypertensive disorder 38 879955 I10 Presently well-contr olled with losartan 25 [...] 2 weeks. ETL Chronic go uty arthritis 06997987 M1A.0790 Will check uric acid levels and continue allopurino l 200 mg daily. Reviewed dietary changes are restrictio ns once again. Obstructiv e sleep apnea syndrome [id number] G47.33 He continues to do well using his CPAP machine encourage patient to continue to lose more weight to improve his sleep issues. [id number] Cresencio Barbosa MD CT_CTCMA_ IM_16 [address] [place] [address] 07/08/2025 15:55:18 07/08/2025 16:35:19 Hypertensive disorder [id number] I10 Due to persistent high blood pressure [...] 10 mg daily without the atenolol. ETL 09-16-25: Patient reports blood pressure still elevated on amlodipine 10 mg daily and losartan 25 mg daily. Discussed different options and agreed to restart atenolol at 50 mg daily and monitor for hypoglycem ia and blood pressure levels. ETL Hypercholesterolemia 136 10045 E78.00 Maintain simvastati n 40 mg daily and we will check cholestero l and liver function test. Body mass index 30+ - obesity 588396022 Z68.37 Very encouraged by his recent weight loss and hopefully he can sustain it. Chronic go uty arthritis [id number] M1A.0790 Will check uric acid levels and [...] 07/08/2025 1 MEDICARE B-CT: NGS Ronnie Padron [id number] Ronnie Padron 07/05/2025 2 [place] [id number] Ronnie Padron [id number] Ronnie Padron 05/25/2023 1 [facility] [id number] Ronnie Padron [id number] Ronnie Rodrigueziancesco 07/01/2023 2 [facility] Ronnie Vegassckeo [id number] Ronnie Rodrigueziancesckeo 12/15/2023 1 [facility] [id number] Ronnie Padron [id number] Ronnie Padron Notes Date Note Type Note [...] is regulated by neurology. Cresencio Barbosa MD [address] [place] [address], [address] Floor, [place], [address], [place] [facility] 02/23/2024 08:28:00 4 text/html He comes in [...] stones in the past. Cresencio Barbosa MD [address] [place] [address], [address] Floor, [place], [address], [place] - [facility] 06/13/2024 08:33:22 5 text/html Virtual VisitReported by PatientIdentity:For patient identity verified by, patient reportsknown established patient. For i shared my identity credentials with the patient, patient reportsyes.Location:For patient is currently located in the state [place], [facility] For patient location, patient reportshome. For provider [...] with mild fever. He has been taking vpen-dvt-qenkugl cough medicine with no improvement. His recently had an episode of viral URI which progressed to COPD exacerbation. He is did test for COVID which was negative. Patient has no history of asthma or smoking but has history of seasonal allergic rhinitis. Cresencio Barbosa MD [address] [place] [address], [address] Floor, [place], [address], [place] [facility] 12/16/2024 15:13:09 5 text/html Medicare Annual [...] no acute issues recently. Cresencio Barbosa MD [address] [place] [address], [address] Floor, [place], [address], [place] [facility] 06/23/2025 13:14:48 5 text/html Ronnie is [...] little bit more frequently. Cresencio Barbosa MD [address] [place] [address], [address] Floor, [place], [address], [place] [facility] 09/16/2025 13:14:16
--- OUTSIDE RECORDS SUMMARY | 2025-10-04 13:24 | XMS_ITS | Continuity of Care Document ---
Author Organization [employer] Address [address] [place] [address] Care Team Providers Care Safety Equipment Testing Specialist Name Role Phone АЛЕКСАНДР SIMS Primary Care Provider Assessment No assessment recorded. Plan of Treatment Reminders Order Date Submit Date Provider Last Modified By Organization Details Last Modified Time Details Appointments ULTRASOUN D 30 2025 08:00A M GP US TECH 1 Not available Not available Not available ULTRASOUN D FU 2025 08:40A M Radha, BIRTH CERTIFICATE CLERK Not available Not available Not available Lab urinalysi s, dipstick, auto 2024 025 [email or web address] [facility], [address], [place], [address], 07/07/2025 09:09:45 Referral None recorded. Procedures None recorded. Surgeries None recorded. Imaging None recorded. Medication Orders None recorded. Patient TargetsNo targets recorded. Patient Instructions Encounter Date Encounter Id Patient Instructions Last Modified By Organization Details Last Modified Time 07/07/2025 [id number] -RBUS and follow-up in one year [email or web address] Not available 07/07/2025 09:15:34 Reason for Referral None Reported. Results Created Date Observation Date Name Description Value Unit Range Abnormal Flag Note LastModifiedBy Organization Detail LastModifiedTime 07/07/20 25 07/07/2025 urina lysis , dipst ick, auto Leukocytes Negati ve Not Available [facility] [address], [place], [address], 07/07/2025 08:17:00 07/07/20 25 07/07/2025 urina lysis , dipst ick, auto Nitrite negati ve Not Available [facility] [address], [place], [address], 07/07/2025 08:17:00 07/07/20 25 07/07/2025 urina lysis , dipst ick, auto Urobilinogen .2 Not Available [facility] [place] [address], [place], [address], 07/07/2025 08:17:00 07/07/2007/07/2025 urina lysis , dipst ick, auto Protein Negati ve Not Available [facility] [address], [place], [address], 07/07/2025 08:17:00 07/07/20 25 07/07/2025 urina lysis , dipst ick, auto pH 5.5 Not Available [facility] [address], [place], [address], 07/07/2025 08:17:00 07/07/20 25 07/07/2025 urina lysis , dipst ick, auto Blood Negati ve Not Available [facility] [address], [place], [address], 07/07/2025 08:17:00 07/07/20 25 07/07/2025 urina lysis , dipst ick, auto Specific Sabin 1.025 Not Available [facility] [address], [place], [address], 07/07/2025 08:17:00 07/07/20 25 07/07/2025 urina lysis , dipst ick, auto Ketone Negati ve Not Available [facility] [address], [place], [address], 07/07/2025 08:17:00 07/07/20 25 07/07/2025 urina lysis , dipst ick, auto Bilirubin Negati ve Not Available [facility] [place] [address], [place], [address], 07/07/2025 08:17:00 07/07/20 25 07/07/2025 urina lysis , dipst ick, auto Glucose Negati ve Not Available [facility] [place] [address], [place], [address], 07/07/2025 08:17:00 07/08/20 US, renal No observ ation record ed. [email or web address] Not Available 2024 08:04:50 07/12/20 25 07/07/2025 US, renal No observ ation record ed. [email or web address] Aurelia [address] [place] [address], [place], [address], 07/14/2025 08:03:00 Result Notes None recorded. Problems Name Problem SNOMED Code Status Onset Date Resolution Date Notes Provider Name and Address Organization Details Recorded Time Benign prostatic hyperplasia with outflow obstruction 496141021 Active 2023 Hadley Montgomery MD [address] [place], [address], [place] - [facility] 5 13:47:07 Prostate specific antigen above reference range 267670634 Active 2023 TESLY CHAY null, [place] - [facility] 4 15:56:56 Spasm of urinary bladder 659647663 Active 2024 Radha David APRN [address] [place], [address], [place] - [facility] 5 12:58:45 Retention of urine 399793412 Active 2024 SIMONA LLOYD null, [place] - [facility] 11:17:58 Incomplete emptying of urinary bladder 665476527 Active 2024 ESINU SIMPINI [facility], [place] - [facility] 14:54:35 Urge incontinence of urine 67904364 Active 2024 Radha Cantordayami, BIRTH CERTIFICATE CLERK [address] [place], [address], [place] - [facility] 15:02:24 Kidney stone 83791254 Active 2024 Radha Frankie, BIRTH CERTIFICATE CLERK [address] [place], [address], [place] - [facility] 15:02:28 Simple renal cyst 09750366 Active 2024 Radha Cantoredelshea, BIRTH CERTIFICATE CLERK [address] [place], [address], [place] - [facility] 11:17:12 Problem Notes None recorded. Procedures Surgical History Date Name Laterality Status Provider Name and Address Organization Details Recorded Time 07/07/20 25 GP-RBUSTRICE completed [facility] - [facility] 07/10/2025 15:17:20 02/20/20 25 FOR VOIDING TRIALS completed [facility] 02/26/2025 14:53:48 02/20/20 25 Brown Catheter Insertion completed [facility] 02/26/2025 14:54:31 02/18/20 25 UroLift -GP completed Hadley Montgomery MD [address] [place], [address], [place] - [facility] 02/17/2025 10:20:35 10/14/20 24 Prostate ultrasound completed [facility] 10/14/2024 15:57:20 10/14/20 24 Cystoscopy (Male) completed [facility] 10/14/2024 14:44:18 11/22/20 24 [facility] studies [facility] 10/10/2024 14:48:51 09/02/20 24 ultrasonography of retroperitoneum [facility] 10/10/2024 14:51:44 Imaging Results None recorded. [...] ICD10 Code Diagnosis IMO Codes Diagnosis Note [id number] Radha David APRN [facility] [address] [place] [address] 07/07/2025 08:18:06 07/07/2025 09:20:13 Benign prostatic hyperplasia with outflow obstruction 438903752 N40.1 N13.8 [id number] -Remain off of tamsulosin .-RBUS and follow-up in one year.-PSA check next year. Kidney stone 62785038 N2 0.0 62660 -None noted. RBUS in one year. Simple renal cyst 803870 09 N28.1 96281 -Noted in the left kidney. [id number] Hadley Montgomery MD [facility] [address] [place] [address] 07/07/2025 08:18:06 07/07/2025 09:20:13 Benign prostatic hyperplasia with outflow obstruction 447879328 N40.1 N13.8 [id number] Health Concerns Section Related Observation LastModified by Organization Detai ls LastModified Time None Recorded Concern Status LastModified by Organization Details LastModified Time None Recorded Payers Encounter Date Sequence Insurance Name Policy Number Policy Jason Covered Member ID Jason Member ID Guarantor Name 07/07/2025 1 MEDICARE B-[place]: NGS Ronnie Ritter Michaelmerrickmariaelena [id number] Ronnie Vegasmariaelena 07/07/2025 2 [place]) [id number] Ronnie Ritter Vito [id number] Ronnie Padron Notes Date Note Type Note Provider Name and Address Organization Details Recorded Time 07/07/2025 text/html ROS as noted in the [...] infection. Radha David APRN [address] [place], [address], [employer] [facility] 07/07/2025 11:18:05
--- OUTSIDE RECORDS SUMMARY | 2025-10-04 13:24 | XMS_ITS | Clinical Summary ---
Author Organization [employer] [facility] Address [address] [place] [address] Care Team Providers Care Proof Press Operator Name Role Phone Cresencio Barbosa MD Primary Care Provider [phone] Surgical History Surgery Date Site/Laterality Comments SHOULDER [...] age to complete this topic Care Teams Proof Press Operator Relationship Specialty Start Date End Date Cresencio Barbosa MD [address] [place] [address] PCP - General Internal Medicine 01/02/17
--- OUTSIDE RECORDS SUMMARY | 2025-10-04 13:24 | XMS_ITS | Data Portability ---
Author Organization [employer] Address [address] [place] [address] Care Team Providers Care Bran Mixer Name Role Phone АЛЕКСАНДР SIMS Primary Care Provider Assessment No assessment recorded. Plan of Treatment Reminders Order Date Submit Date Provider Last Modified By Organization Details Last Modified Time Details Appointments ULTRASOU ND 30 2025 08:00A M GP [facility] TECH 1 Not available Not available Not available ULTRASOU ND FU 20 2025 08:40A M Radha, [employer] Not available Not available Not available Lab urinalys is, dipstick , auto 2024 025 [email or web address] [facility], [address] [place] [address], [address], 07/07/2025 09:09:45 urinalys is, dipstick , auto 2024 025 [email or web address] [facility], [address] [place] [address], [address], 04/04/2025 15:31:56 culture, urine 2024 025 [email or web address] [facility] (Centralized Electronic Ordering - All Locations), Patient Can Go To The Location Of Their Choice, [address] 04/05/2025 18:06:02 urinalys is, dipstick , auto 2024 025 [email or web address] [facility], [address], [place], [address], 02/18/2025 10:45:19 Referral None recorded . Procedures bladder scan (PROC) 2024 025 [email or web address] [facility] [place], [address], [place], [address], 04/04/2025 15:31:56 Surgeries None recorded . Imaging None recorded . Medication Orders None recorded . Patient TargetsNo targets recorded. Patient Instructions Encounter Date Encounter Id Patient Instructions Last Modified By Organization Details Last Modified Time 04/04/2025 [id number] -Stop the tamsulosin -RBUS and follow-up in 3 months [email or web address] Not available 04/04/2025 15:22:10 07/07/2025 [id number] -RBUS and follow-[facility] year [facility] 07/07/2025 09:15:34 Reason for Referral None Reported. Results Created Date Observation Date Name Description Value Unit Range Abnormal Flag Note LastModifiedBy Organization Detail LastModifiedTime 02/04/2002/05/2025 URINE CULTU RE, ROUTI NE urine culture, routine Final report Not Available [facility] ([facility]) [address] [facility], [place], [address], 02/05/2025 06:06:08 02/04/20 25 02/05/2025 URINE CULTU RE, ROUTI NE result 1 COMMEN T Cultu re shows less than 10,00 0 colon y formi ng units of bacte dung per jodie liter of urine . This colon y count is not gener ally consi dered to be clini jeffery signi fican t. Not Available [facility] ([facility]) [address] [facility], [place], [address], 02/05/2025 06:06:08 02/04/20 25 02/03/2025 urina lysis , dipst ick, auto Leukocytes Negati ve Not Available [facility] [place] [address], [place], [address], 02/03/2025 15:34:53 02/04/20 25 02/03/2025 urina lysis , dipst ick, auto Nitrite negati ve Not Available [facility] [address], [place], [address], 02/03/2025 15:34:53 02/04/20 25 02/03/2025 urina lysis , dipst ick, auto Urobilinogen .2 Not Available [facility] [place] [address], [place], [address], 02/03/2025 15:34:53 02/04/20 25 02/03/2025 urina lysis , dipst ick, auto Protein Negati ve Not Available [facility] [address], [place], [address], 02/03/2025 15:34:53 02/04/20 25 02/03/2025 urina lysis , dipst ick, auto pH 5.5 Not Available [facility] [address], [place], [address], 02/03/2025 15:34:53 02/04/20 25 02/03/2025 urina lysis , dipst ick, auto Blood Negati ve Not Available [facility] [address], [place], [address], 02/03/2025 15:34:53 02/04/20 25 02/03/2025 urina lysis , dipst ick, auto Specific [place] 1.025 Not Available [facility] [address], [place], [address], 02/03/2025 15:34:53 02/04/20 25 02/03/2025 urina lysis , dipst ick, auto Ketone Negati ve Not Available [facility] [address], [place], [address], 02/03/2025 15:34:53 02/04/20 25 02/03/2025 urina lysis , dipst ick, auto Bilirubin Negati ve Not Available [facility] [address], [place], [address], 02/03/2025 15:34:53 02/04/20 25 02/03/2025 urina lysis , dipst ick, auto Glucose Negati ve Not Available [facility] [address], [place], [address], 02/03/2025 15:34:53 02/18/20 25 02/17/2025 urina lysis , dipst ick, auto Leukocytes Negati ve Not Available [facility] [address], [place], [address], 02/17/2025 09:31:22 02/18/20 25 02/17/2025 urina lysis , dipst ick, auto Nitrite negati ve Not Available [facility] [address], [place], [address], 02/17/2025 09:31:22 02/18/20 25 02/17/2025 urina lysis , dipst ick, auto Urobilinogen .2 Not Available [facility] [place] [address], [place], [address], 02/17/2025 09:31:22 02/18/20 25 02/17/2025 urina lysis , dipst ick, auto Protein Negati ve Not Available [facility] [address], [place], [address], 02/17/2025 09:31:22 02/18/20 25 02/17/2025 urina lysis , dipst ick, auto pH 6.0 Not Available [facility] [address], [place], [address], 02/17/2025 09:31:22 02/18/20 25 02/17/2025 urina lysis , dipst ick, auto Blood Negati ve Not Available [facility] [address], [place], [address], 02/17/2025 09:31:22 02/18/20 25 02/17/2025 urina lysis , dipst ick, auto Specific [place] 1.025 Not Available [facility] [address], [place], [address], 02/17/2025 09:31:22 02/18/20 25 02/17/2025 urina lysis , dipst ick, auto Ketone Negati ve Not Available [facility] [address], [place], [address], 02/17/2025 09:31:22 02/18/20 25 02/17/2025 urina lysis , dipst ick, auto Bilirubin Negati ve Not Available [facility] [address], [place], [address], 02/17/2025 09:31:22 02/18/20 25 02/17/2025 urina lysis , dipst ick, auto Glucose Negati ve Not Available [facility] [address], [place], [address], 02/17/2025 09:31:22 04/04/20 25 04/05/2025 URINE CULTU RESERGEI NE urine culture, routine Final report Not Available [facility] ([facility]) [address], [place], [address], 04/05/2025 18:06:02 04/04/20 25 04/05/2025 URINE CULTU RE, SERGEI NE result 1 COMMEN T Cultu re shows less than 10,00 0 colon y formi ng units of bacte dung per jodie liter of urine . This colon y count is not gener ally consi dered to be clini jeffery signi sunday t. Not Available [facility] ([facility]) [address] [facility], [place], [address], 04/05/2025 18:06:02 04/04/20 25 04/04/2025 urina lysis , dipst ick, auto Leukocytes Negati ve Not Available [facility] [address], [place], [address], 04/04/2025 15:08:26 04/04/20 25 04/04/2025 urina lysis , dipst ick, auto Nitrite negati ve Not Available [facility] [address], [place], [address], 04/04/2025 15:08:26 04/04/20 25 04/04/2025 urina lysis , dipst ick, auto Urobilinogen .2 Not Available [facility] [place] [address], [place], [address], 04/04/2025 15:08:26 04/04/20 25 04/04/2025 urina lysis , dipst ick, auto Protein Negati ve Not Available [facility] [address], [place], [address], 04/04/2025 15:08:26 04/04/20 25 04/04/2025 urina lysis , dipst ick, auto pH 5.5 Not Available [facility] [address], [place], [address], 04/04/2025 15:08:26 04/04/20 25 04/04/2025 urina lysis , dipst ick, auto Blood Negati ve Not Available [facility] [address], [place], [address], 04/04/2025 15:08:26 04/04/20 25 04/04/2025 urina lysis , dipst ick, auto Specific [place] 1.025 Not Available [facility] [address], [place], [address], 04/04/2025 15:08:26 04/04/20 25 04/04/2025 urina lysis , dipst ick, auto Ketone Negati ve Not Available [facility] [address], [place], [address], 04/04/2025 15:08:26 04/04/20 25 04/04/2025 urina lysis , dipst ick, auto Bilirubin Negati ve Not Available [facility] [address], [place], [address], 04/04/2025 15:08:26 04/04/20 25 04/04/2025 urina lysis , dipst ick, auto Glucose Negati ve Not Available [facility] [address], [place], [address], 04/04/2025 15:08:26 04/04/20 25 04/04/2025 bladd er scan (PROC ) Urine Volume 23 Not Available [facility] [place] [address], [place], [address], 04/04/2025 15:08:34 07/07/20 25 07/07/2025 urina lysis , dipst ick, auto Leukocytes Negati ve Not Available [facility] [address], [place], [address], 07/07/2025 08:17:00 07/07/20 25 07/07/2025 urina lysis , dipst ick, auto Nitrite negati ve Not Available [facility] [address], [place], [address], 07/07/2025 08:17:00 07/07/20 25 07/07/2025 urina lysis , dipst ick, auto Urobilinogen .2 Not Available [facility] [place] [address], [place], [address], 07/07/2025 08:17:00 07/07/20 25 07/07/2025 urina lysis , dipst ick, auto Protein Negati ve Not Available [facility] [address], [place], [address], 07/07/2025 08:17:00 07/07/2007/07/2025 urina lysis , dipst ick, auto pH 5.5 Not Available [place] [address], [place], [address], 07/07/2025 08:17:00 07/07/2007/07/2025 urina lysis , dipst ick, auto Blood Negati ve Not Available [facility] [address], [place], [address], 07/07/2025 08:17:00 07/07/20 25 07/07/2025 urina lysis , dipst ick, auto Specific [place] 1.025 Not Available [facility] [address], [place], [address], 07/07/2025 08:17:00 07/07/20 25 07/07/2025 urina lysis , dipst ick, auto Ketone Negati ve Not Available [facility] [address], [place], [address], 07/07/2025 08:17:00 07/07/20 25 07/07/2025 urina lysis , dipst ick, auto Bilirubin Negati ve Not Available [facility] [address], [place], [address], 07/07/2025 08:17:00 07/07/20 25 07/07/2025 urina lysis , dipst ick, auto Glucose Negati ve Not Available [facility] [place] [address], [place], [address], 07/07/2025 08:17:00 03/11/20 25 02/17/2025 US, mina nce No observ ation record ed. [email or web address] Aurelia [address], [place], [address], 03/11/2025 09:19:01 07/08/20 , renal No observ ation record ed. [email or web address] Not Available 2024 08:04:50 07/12/20 25 07/07/2025 , renal No observ ation record ed. [email or web address] [address], [place], [address], 07/14/2025 08:03:00 Result Notes None recorded. Problems Name Problem SNOMED Code Status Onset Date Resolution Date Notes Provider Name and Address Organization Details Recorded Time Benign prostatic hyperplasia with outflow obstruction 316926793 Active 2023 Hadley Montgomery MD [address] [place], [address], [place] - [facility] 5 13:47:07 Prostate specific antigen above reference range 117090459 Active 2023 TESSHAE CHAY null, [place] - [facility] 4 15:56:56 Spasm of urinary bladder 706593737 Active 2024 Radha David APRN [address] [place], [address], [place] - [facility] 5 12:58:45 Retention of urine 924245760 Active 2024 SIMONA LLOYD null, [place] - [facility] 11:17:58 Incomplete emptying of urinary bladder 090384507 Active 2024 ESINU SIMPINI null, [place] - [facility] 14:54:35 Urge incontinence of urine 97338311 Active 2024 Radha Cantoredelshea, [employer] [address] [place], [address], [place] [facility] 15:02:24 Kidney stone 85039846 Active 2024 Radha Cantordayami, [employer] [address] [place], [address], [place] - [facility] 15:02:28 Simple renal cyst 65346066 Active 2024 Radha Cantoredelshea, [employer] [address] [place], [address], [place] - [facility] 11:17:12 Problem Notes None recorded. Procedures Surgical History Date Name Laterality Status Provider Name and Address Organization Details Recorded Time 07/07/20 25 GP-RBUSTRICE completed [facility] - [facility] 07/10/2025 15:17:20 02/20/20 25 FOR VOIDING TRIALS completed [place] [facility] 02/26/2025 14:53:48 02/20/20 25 Brown Catheter Insertion completed [facility] 02/26/2025 14:54:31 02/18/20 25 UroLift -GP completed Hadley Montgomery MD [address] [place], [address], [place] - [facility] 02/17/2025 10:20:35 10/14/20 24 Prostate ultrasound completed [facility] 10/14/2024 15:57:20 10/14/20 24 Cystoscopy (Male) completed [facility] 10/14/2024 14:44:18 09/20/20 24 [facility] 10/10/[facility] 14:48:51 09/02/20 24 ultrasonography of retroperitoneum [facility] 10/10/2024 14:51:44 Imaging Results None recorded. [...] ICD10 Code Diagnosis IMO Codes Diagnosis Note [id number] Hadley Montgomery MD [facility] [place] [address] [place] [address] 10/14/2024 13:22:07 10/14/2024 15:13:11 Benign prostatic hyperplasia with outflow obstruction 815667292 N40.1 N13.8 [id number] - See procedure note.- I counseled pt [...] get PSA lab done prior to procedure. [id number] Danielle Aguilar APRN [facility] [address] [place] [address] 12/11/2024 14:59:54 12/11/2024 15:48:08 Benign prostatic hyperplasia with outflow obstruction 902193380 N40.1 N13.8 [id number] I reviewed pre-op urolift instructio n with [...] will be going home with a catheter. [id number] Hadley Montgomery MD [facility] [place] [address] [place] [address] 02/17/2025 08:45:55 02/17/2025 10:48:37 Benign prostatic hyperplasia with outflow obstruction 241204935 N40.1 N13.8 [id number] - See procedure note.- I counseled pt [...] get PSA lab done prior to procedure. [id number] Hadley Montgomery MD [place] [address] [place] [address] 02/19/2025 09:57:23 02/19/2025 11:05:23 Incomplete emptying of urinary bladder 503331081 R33.9 483145 [id number] Radha David APRN [facility] [address] [place] [address] 04/04/2025 15:02:28 04/04/2025 15:28:34 Benign prostatic hyperplasia with outflow obstruction 407903456 N40.1 N13.8 89003952 -Stop tamsulosin .-Follow-u p in 3 months. Urge incon tinence of urine 58926436 N39.41 [id number] -May need to consider medication versus 3rd line therapy if these symptoms worsen. Kidney stone 23367205 N2 0.0 36438 -RBUS in 3 months.-If symptoms return (flank pain etc), please call office dennise. [id number] Radha David APRN [facility] [address] [place] [address] 07/07/2025 08:18:06 07/07/2025 09:20:13 Benign prostatic hyperplasia with outflow obstruction 594411883 N40.1 N13.8 75175975 -Remain off of tamsulosin .-RBUS and follow-up in one year.-PSA check next year. Kidney stone 06297884 N2 0.0 27284 -None noted. RBUS in one year. Simple renal cyst 242241 09 N28.1 43456 -Noted in the left kidney. [id number] Hadley Montgomery MD [place] [address] [address] 07/07/2025 08:18:06 07/07/2025 09:20:13 Benign prostatic hyperplasia with outflow obstruction 992755970 N40.1 N13.8 [id number] Health Concerns Section Related Observation LastModified by Organization Detai ls LastModified Time None Recorded Concern Status LastModified by Organization Details LastModified Time None Recorded Advance Directives Directive None Recorded Payers Insurance Date Sequence Insurance Name Policy Number Policy Jason Covered Member ID Jason Member ID Guarantor Name 07/04/2025 1 [place]: TEGAN Padron [id number] Ronnie Padron 07/22/2025 2 [place] SUPP[place]) [id number] Ronnie Padron [id number] Ronnie Padron Notes Date Note Type [...] hematuria or signs of infection. Radha David, [employer] [address] [place], [address], [facility] - [employer] 04/06/2025 15:42:09 07/07/2025 text/html ROS as [...] infection. Radha David APRN [address] [place], [address], [facility] - [facility] 07/07/2025 11:18:05
--- OUTSIDE RECORDS SUMMARY | 2025-10-04 13:24 | XMS_ITS | Continuity of Care Document ---
Author Organization [place] - [facility] [employer] [facility], [id number] ASH FLAT Address [address] [place] [address] Assessment No assessment recorded. Plan of Treatment Reminders Order Date Submit Date Provider Last Modified By Organization Details Last Modified Time Details Appointments Follow Up 2025 04:00P M Cresencio Barbosa MD Not available Not available Not available Lab BMP, serum or plasma 2024 025 gferrentino [facility], [address] [place] [address], [id number], 07/15/2025 08:04:53 lipid panel, serum 2024 025 gferrentino [facility], [address] [place] [address], [id number], 07/15/2025 08:04:53 uric acid, serum or plasma 2024 025 MARCELA [facility], [address] [place] [address], [id number], 08/17/2025 08:06:42 Referral None recorde d. Procedures None recorde d. Surgeries None recorde d. Imaging None recorde d. Medication Orders None recorde d. Patient TargetsNo targets recorded. Patient InstructionsNo instructions recorded. Reason for Referral None Reported. Results Created Date Observation Date Name Description Value Unit Range Abnormal Flag Note LastModifiedBy Organization Detail LastModifiedTime 08/16/20 25 08/17/2025 BASIC METAB OLIC PANEL (8) glucose 96 mg/dL 70-99 normal Not Available [facility] ([facility]) [address], [place], [address], 08/17/2025 08:06:41 08/16/2008/17/2025 BASIC METAB OLIC PANEL (8) BUN 15 mg/dL 8-27 normal Not Available [facility] ([facility]) [address] [place], [address], 08/17/2025 08:06:41 08/16/2008/17/2025 BASIC METAB OLIC PANEL (8) creatinine 0.96 mg/dL 0.76-1 .27 normal Not Available [facility] ([facility]) [address] [place], [address], 08/17/2025 08:06:41 08/16/2008/17/2025 BASIC METAB OLIC PANEL (8) eGFR 86 mL/mi n/1.7 3 >59 normal Not Available [facility] ([facility]) [address], [place], [address], 08/17/2025 08:06:41 08/16/2008/17/2025 BASIC METAB OLIC PANEL (8) BUN/creatini ne ratio 16 10-24 normal Not Available [facility] ([facility]) [address] [place], [address], 08/17/2025 08:06:41 08/16/2008/17/2025 BASIC METAB OLIC PANEL (8) sodium 140 mmol/ L 134-14 4 normal Not Available [facility] ([facility]) [address] [place], [address], 08/17/2025 08:06:41 08/16/2008/17/2025 BASIC METAB OLIC PANEL (8) potassium 4.3 mmol/ L 3.5-5. 2 normal Not Available [facility] ([facility]) [address] [place], [address], 08/17/2025 08:06:41 08/16/20 25 08/17/2025 BASIC METAB OLIC PANEL (8) chloride 101 mmol/ L 96-106 normal Not Available [facility] ([facility]) [address] [place], [address], 08/17/2025 08:06:41 08/16/20 25 08/17/2025 BASIC METAB OLIC PANEL (8) carbon dioxide, total 25 mmol/ L 20-29 normal Not Available [facility] ([facility]) [address] [place], [address], 08/17/2025 08:06:41 08/16/2008/17/2025 BASIC METAB OLIC PANEL (8) calcium 9.1 mg/dL 8.6-10 .2 normal Not Available [facility] ([facility]) [address] [place], [address], 08/17/2025 08:06:41 08/16/20 25 08/17/2025 LIPID PANEL cholesterol, total 178 mg/dL 100-19 9 normal Not Available [facility] ([facility]) [address] [place], [address], 08/17/2025 08:06:42 08/16/20 25 08/17/2025 LIPID PANEL triglyceride s 65 mg/dL 0-149 normal Not Available [facility] ([facility]) [address] [place], [address], 08/17/2025 08:06:42 08/16/20 25 08/17/2025 LIPID PANEL HDL cholesterol 73 mg/dL >39 normal Not Available [facility] ([facility]) [address] [place], [address], 08/17/2025 08:06:42 08/16/20 25 08/17/2025 LIPID PANEL VLDL cholesterol paulino 12 mg/dL 5-40 Not Available [facility] ([facility]) [address] [facility] [place], [address], 08/17/2025 08:06:42 08/16/2008/17/2025 LIPID PANEL LDL chol calc ([facility]) 93 mg/dL 0-99 Not Available [facility] ([facility]) [address] [facility] [address], [place], [address], 08/17/2025 08:06:42 08/16/2008/17/2025 LIPID PANEL 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 4 normal Thera peuti c targe t for gout patie nts: <6.0 Not Available [facility] ([facility]) [address], [place], [address], 08/17/2025 08:06:42 Result Notes None recorded. Problems Name Problem SNOMED Code Status Onset Date Resolution Date Notes Provider Name and Address Organization Details Recorded Time Seizure disorder 760382122 Active 2011 Seizure disorder Not Available [facility] 4 01:31:27 Obstructi ve sleep apnea syndrome 67828039 Active 2019 Obstructi ve sleep apnea syndrome Not Available [facility] 4 01:31:28 Hypertens karly disorder 51082232 Active 2019 White coat syndrome with hypertens ion Not Available [facility] 4 01:31:28 Chronic gouty arthritis 18438151 Active 2019 Chronic idiopathi c gout of foot Cresencio Barbosa MD [address] [place] [address], [address], [place], [address] , [place] - [facility] 4 08:29:42 Barretts esophagus with dysplasia 19945355916 36483 Active 2019 Britt's esophagus with dysplasia Not Available [facility] 4 01:31:27 Hyperchol esterolem ia 62786761 Active 2019 Hyperchol esterolem ia Cresencio Barbosa MD [address] [place] [address], [address] [place] [address], [address] , [place] - [facility] 4 08:29:30 Kidney stone 08691420 Active 2019 Nephrolit hiasis Not Available [facility] 4 01:31:28 Osteoarth ritis of bilateral hip joints 19862181397 9105 Active 2021 Osteoarth ritis of both hips Not Available [facility] 4 01:31:27 Body mass index 30+ - obesity 798255174 Active 2022 Obesity (BMI 30-39.9) Cresencio Barbosa MD [address] [place] [address], [address] [place] [address], [address] , [place] - [facility] 4 08:31:09 Calcific tendiniti s of right ankle 45112472559 9104 Active 2023 Cresencio Barbosa MD [address] [place] [address], [address] [place] [address], [place], [address] , [place] - [facility] 4 08:48:20 Benign prostatic hyperplas ia with outflow obstructi on 879044307 Active 2024 Cresencio Barbosa MD [address] [place] [address], [address] [place] [address], [place], [address] , [place] - [facility] 5 16:18:23 Seasonal allergy 139220736 Active 2024 Crystal Laviolette null, [facility] [place] 5 14:59:17 Allergic reaction to bee sting 359790491 Active 2024 Cresencio Barbosa MD [address] [place] [address], [address] [place] [address], [address] , [place] - [facility] 5 15:50:14 Essential hypertens ion 74228091 Active 2024 Crystal Laviolette null, [place] - [facility] 5 16:49:51 Problem Notes None recorded. Procedures Surgical History Date Name Laterality Status Provider Name and Address Organization Details Recorded Time 025 AWV - male prevention plan completed Cresencio Barbosa MD [address] [place] [address], [address], [place] - [facility] 12/31/2024 16:36:53 025 Advance Care Planning Consultation completed Cresencio Barbosa MD [address] [place] [address], [address], [place] - [place] [facility] 12/31/2024 16:37:12 025 AWV - safety evaluation completed Cresencio Barbosa MD [address] [place] [address], [address] [place] [address], [place], [address], [place] - [facility] 12/31/2024 16:37:00 024 Advance Care Planning Consultation completed [facility] - [facility] 12/15/2023 08:07:35 024 AWV - safety evaluation completed Crystal Laviolette CT - [facility] 12/15/2023 08:07:35 024 AWV - male prevention plan [facility] 12/15/2023 08:07:35 prosthetic arthroplasty of hip completed Cresencio Barbosa MD [address] [place] [address], [address] [place] [address], [address], [place] - [facility] 12/15/2023 08:34:15 partial repair of rotator cuff completed Cresencio Barbosa MD [address] [place] [address], [address], [place] - [place] [facility] 12/15/2023 08:34:42 cholecystectomy completed Cresencio Barbosa MD [address] [place] [address], [address], [place] - [facility] 12/15/2023 08:35:12 Imaging Results None recorded. Procedure Notes None recorded. Medical Equipment None Reported. Allergies Allergen ID Allergen Name Allergen Category Reaction Reaction Severity Criticality Documentation Date Start Date Code Code System Note Provider Name and Address Organization Details Recorded Time 631476 codeine medicatio n Not available Not available Not available 02/24/20232016 2670 RxNorm Not Available [facility] 3 19:37:03 913785 honey bee venom environme nt Not available Not available Not available 02/24/20232020 31205 7 RxNorm React ion: Hector mendoza s, kenia ity: Kenia e Not Available [facility] 3 19:37:04 Medications Name Sig Start Date Stop [...] Not Available Not Available Vitals Date Recorded Systolic And Diastolic Provider Name and Address Organization Details Last Updated DateTime 07/08/2025 152/88 mm[Hg] Cresencio Barbosa MD [address] [place] [address], [address] Floor, [place], [address], [facility] 07/08/2025 16:23:59 Date Recorded Body height Body mass index (BMI) Body weight Oxygen saturation Heart rate Provider Name and Address Organization Details Last Updated DateTime 07/08/2025 176.5 cm 35.7 kg/m2 002587.1 3 g 98 % 67 /min Crystal Laviolette [facility] 16:10:37 Social History Question Answer Notes LastModified by Organizat ion Details LastModified Time Tobacco Smoking Status Former Smoker Hector vilchis, [facility] 12/31/2024 15:35:18 Do You Have An [...] Or The Highest Degree You Have Received? [id number] Information not available 12/31/2024 Who Is Your Employer? [employer] Information not available 12/31/2024 How Many Days [...] Do You Have A Medical Power Of Adobe Layer? 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 No Information not available 12/15/2023 What is your exercise level? Moderate Information not available 12/31/2024 Mental Status Question Answer Note LastModified by Organizat ion Details LastModified Time Do you feel stressed (tense, restless, nervous, or anxious, or unable to sleep at night)? [id number] Information not available 12/15/2023 Do you have difficulty concentrating, remembering or making decisions? No Information no t available 12/15/2023 Family History Nothing Reported. Medical History No medical history recorded. Immunizations Vaccine Type Date Status Note Provider Nam e and Address Organization Details Recorded Time zoster live 7 completed Not Available [facility] 12/02/2023 01:31:28 Tdap 7 completed Not Available [facility] 12/02/2023 01:31:28 pneumococcal polysaccharide PPV23 2 completed Not Available [facility] 12/02/2023 01:31:28 DT (pediatric) 8 completed Not Available [facility] 12/02/2023 01:31:28 DT (pediatric) 7 completed Not Available [facility] 12/02/2023 01:31:28 COVID-19, mRNA, LNP-S, PF, 100 mcg/0.5mL dose or 50 mcg/0.25mL dose 1 completed Not Available [facility] 12/02/2023 01:31:28 COVID-19, mRNA, LNP-S, PF, 100 mcg/0.5mL dose or 50 mcg/0.25mL dose 1 completed Not Available [facility] 12/02/2023 01:31:28 Past Encounters Encounter ID Performer Location Encounter Start Date Encounter Closed Date Diagnosis/Indication Diagnosis SNOMED-CT Code Diagnosis ICD10 Code Diagnosis IMO Codes Diagnosis Note [id number] Cresencio Barbosa MD CT_CTCMA_ [id number]_16 [address] [place] [address] 07/08/2025 15:55:18 07/08/2025 16:35:19 Hypertensive disorder 92714036 I10 Due to persistent high blood pressure [...] and blood pressure levels. ETL Hypercholesterolemia 136 17691 E78.00 Maintain simvastati n 40 mg daily and we will check cholestero l and liver function test. Body mass index 30+ - obesity 280938797 Z68.37 Very encouraged by his recent weight loss and hopefully he can sustain it. Chronic go uty arthritis 56666700 M1A.0790 Will check uric acid levels and [...] 07/08/2025 1 MEDICARE B-[place]: NGS Ronnie Padron [id number] Ronnie Padron 07/08/2025 2 [place] [id number] Ronnie Padron [id number] Ronnie Vito Notes Date Note Type Note Provider Name and Address Organization Details Recorded Time 07/08/2025 text/html Rnonie is seen today for his 6-month follow-up [...] little bit more frequently. Cresencio Barbosa MD [address] [place] [address], [address] Floor, [place], [address], [place] - [place] [facility] 09/16/2025 13:14:16
--- OUTSIDE RECORDS SUMMARY | 2025-10-04 13:24 | XMS_ITS | Continuity of Care Document ---
Author Organization [place] [facility] Address [address] [place] [address] Care Team Providers Care Field Staff Manager Name Role Phone АЛЕКСАНДР SIMS Primary Care Provider Assessment No assessment recorded. Plan of Treatment Reminders Order Date Submit Date Provider Last Modified By Organization Details Last Modified Time Details Appointments ULTRASOUN D 30 2025 08:00A M GP US TECH 1 Not available Not available Not available ULTRASOUN D 2025 08:40A M ELISE Garcia Not available Not available Not available Lab None recorded. Referral None recorded. Procedures None recorded. Surgeries None recorded. Imaging None recorded. Medication Orders None recorded. Patient TargetsNo targets recorded. Patient InstructionsNo instructions recorded. Reason for Referral None Reported. Results Created Date Observation Date Name Description Value Unit Range Abnormal Flag Note LastModifiedBy Organization Detail LastModifiedTime 07/07/2007/07/2025 urina lysis , dipst ick, auto Leukocytes Negati ve Not Available [facility] [address], [place], [address], 07/07/2025 08:17:00 07/07/20 25 07/07/2025 urina lysis , dipst ick, auto Nitrite negati ve Not Available [facility] [address], [place], [address], 07/07/2025 08:17:00 07/07/20 25 07/07/2025 urina lysis , dipst ick, auto Urobilinogen .2 Not Available [facility] [place] [address], [place], [address], 07/07/2025 08:17:00 07/07/20 25 07/07/2025 urina lysis , dipst ick, auto Protein Negati ve Not Available [facility] [address], [place], [address], 07/07/2025 08:17:00 07/07/2007/07/2025 urina lysis , dipst ick, auto pH 5.5 Not Available [facility] [address], [place], [address], 07/07/2025 08:17:00 07/07/20 25 07/07/2025 urina lysis , dipst ick, auto Blood Negati ve Not Available [facility] [address], [place], [address], 07/07/2025 08:17:00 07/07/2007/07/2025 urina lysis , dipst ick, auto Specific [place] 1.025 Not Available [facility] [address], [place], [address], 07/07/2025 08:17:00 07/07/2007/07/2025 urina lysis , dipst ick, auto Ketone Negati ve Not Available [facility] [address], [place], [address], 07/07/2025 08:17:00 07/07/2007/07/2025 urina lysis , dipst ick, auto Bilirubin Negati ve Not Available [facility] [address], [place], [address], 07/07/2025 08:17:00 07/07/2007/07/2025 urina lysis , dipst ick, auto Glucose Negati ve Not Available [facility] [address], [place], [address], 07/07/2025 08:17:00 07/08/20 25 US, renal No observ ation record ed. [email or web address] Not Available 2024 08:04:50 07/12/20 25 07/07/2025 [place], renal No observ ation record ed. [email or web address] [address], [place], [address], 07/14/2025 08:03:00 Result Notes None recorded. Problems Name Problem SNOMED Code Status Onset Date Resolution Date Notes Provider Name and Address Organization Details Recorded Time Benign prostatic hyperplasia with outflow obstruction 418072984 Active 2023 Hadley Montgomery MD [address] [place], [address], [place] [facility] 5 13:47:07 Prostate specific antigen above reference range 161070713 Active 2023 TESLY CHAY null, [place] - [facility] 4 15:56:56 Spasm of urinary bladder 135678167 Active 2024 Radha David APRN [address] [place], [address], [place] [facility] 5 12:58:45 Retention of urine 385188516 Active 2024 ESINU SIMPINI null, [place] - [facility] 5 11:17:58 Incomplete emptying of urinary bladder 264472438 Active 2024 ESINU SIMPINI null, [place] - [facility] 5 14:54:35 Urge incontinence of urine 95772476 Active 2024 Radha David APRN [address] [place], [address], [place] - [facility] 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 11:17:12 Problem Notes None recorded. Procedures Surgical History Date Name Laterality Status Provider Name and Address Organization Details Recorded Time 07/07/20 25 GP-RBUSTRICE completed [facility] 07/10/2025 15:17:20 02/20/20 25 FOR VOIDING TRIALS completed [facility] 02/26/2025 14:53:48 02/20/20 25 Brown Catheter Insertion completed [facility] 02/26/2025 14:54:31 02/18/20 25 UroLift -GP completed Hadley Montgomery MD [address] [place], [address], [facility] 02/17/2025 10:20:35 10/14/20 24 Prostate ultrasound completed [facility] 10/14/2024 15:57:20 10/14/20 24 Cystoscopy (Male) completed [facility] 10/14/2024 14:44:18 09/20/20 24 urodynamic studies completed [facility] 10/10/2024 14:48:51 09/02/20 24 ultrasonography of retroperitoneum completed [facility] 10/10/2024 14:51:44 Imaging Results None recorded. [...] ICD10 Code Diagnosis IMO Codes Diagnosis Note [id number] Radha David APRN [facility] [place] [address] [place] [address] 07/07/2025 08:18:06 07/07/2025 09:20:13 Benign prostatic hyperplasia with outflow obstruction 383721657 N40.1 N13.8 01799181 -Remain off of tamsulosin .-RBUS and follow-up in one year.-PSA check next year. Kidney stone 93206612 N2 0.0 70608 -None noted. RBUS in one year. Simple renal cyst 089626 09 N28.1 12859 -Noted in the left kidney. [id number] Hadley Montgomery MD [facility] [address] [place] [address] 07/07/2025 08:18:06 07/07/2025 09:20:13 Benign prostatic hyperplasia with outflow obstruction 021209229 N40.1 N13.8 20779797 Health Concerns Section Related Observation LastModified by Organization Detai ls LastModified Time None Recorded Concern Status LastModified by Organization Details LastModified Time None Recorded Payers Encounter Date Sequence Insurance Name Policy Number Policy Jason Covered Member ID Jason Member ID Guarantor Name 07/07/2025 1 MEDICARE B-[place]: NGS Ronnie Padron [id number] Ronnie Padron 07/07/2025 2 [place]MED[place]PPLE[place]) [id number] Ronnie Padron [id number] Ronnie Padron Notes Date Note Type [...] signs of infection. Radha David APRN [address] [facility] [place], [address], [place] 07/07/2025 11:18:05
--- OUTSIDE RECORDS SUMMARY | 2025-10-04 13:24 | XMS_ITS | Clinical Summary ---
Author Organization [facility] Prior to 03/29/25 Address [address] [place] [address] Care Team Providers Care Caddie Name Role Phone Cresencio Barbosa MD Primary Care Provider [phone] Allergies Active Allergy Reactions Criticality Noted Date [...] age to complete this topic Care Teams Caddie Relationship Specialty Start Date End Date Cresencio Barbosa MD PCP - General Trim Mounter 06/16/17
== END 2025-10-04 13:20 | disposition home or self-care (01) ==
LOC: HO.MRI 13:19
PROVIDERS: PCP Internal Medicine; Visit Provider Nurse Practitioner
DX: R41.3 Other amnesia (principal); G40.909 Epilepsy, unspecified, not intractable, without status epilepticus; R26.89 Other abnormalities of gait and mobility; W19.XXXA Unspecified fall, initial encounter
CPT/HCPCS: 70553; A9585

== ENCOUNTER → 2025-10-04 13:58 | Outpatient (BNV) | payer MEDICARE, SELFPAY | PROVIDERS: PCP Internal Medicine; Visit Provider Radiology Diagnostic Radiology | DX: G40.909 Epilepsy, unspecified, not intractable, without status epilepticus (principal); G31.9 Degenerative disease of nervous system, unspecified; Z04.3 Encounter for examination and observation following other accident | CPT/HCPCS: 70553 ==

== ENCOUNTER 2025-10-27 10:47 | Outpatient (AMB) | payer MEDICARE, SELFPAY ==
--- NOTE | 2025-10-27 10:55 | MHC.OFFVIS ---
Vital Signs 10/27/25 11:01 Height 5 ft 10 in Weight 233 lb BMI 33.4 BP 158/76 H Blood Pressure Location Lt brachial Position Sitting Respiration 16 Pulse 56 Pulse Source Pulse Oximeter Pulse Oximetry (%) 97 Oxygen Delivery Method Room Air Intake Visit Reasons: Results Building Mover Required: No Accompanied by: Spouse Allergies bee pollen (bee stings) Adverse Reaction (Unknown, Verified 10/27/25 11:02) unknown codeine Adverse Reaction (Unknown, Verified 10/27/25 11:02) Unknown HPI Comments Details: Ronnie is a 70-year-old male patient with a past medical history of generalized seizures, Britt's esophagus, gout, headaches, hypercholesterolemia, hypertension, nephrolithiasis, obesity, and sleep apnea with the use of a CPAP machine presenting to the clinic for a follow up visit. I was previously following him at [facility] for several neurological concerns. His primary concerns had included memory difficulties, brief staring episodes, dizziness, difficulty with the balance, urinary incontinence, memory changes, and decreased physical stamina. Memory: Overall, this is his most pressing concern. He notes that over the course of the last 1-2 years he has noticed a decline in his memory. He gives examples of forgetting his grandchildren's names from time to time and difficulty with planning, initiating a task, or problem solving. His has also noticed some changes in behavior with Ronnie becoming more agitated much quicker. 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 He has been using his CPAP nightly and overall reports that his sleep is generally pretty good. He does have an upcoming appointment with the memory clinic at [facility] on 12/16/2024. Balance: Reports some difficulty with balance and has had some falls within the last few months. He denies tripping on things but more so loses his footing. He can sometimes feel a sense of wooziness. He does have history of some sensory deficits to the bilateral lower extremities though an EMG completed in November of 2023 showed no definite nerve conduction study evidence of a large fiber sensory motor polyneuropathy affecting the lower extremities. It was however difficult to exclude an axonal polyneuropathy in the setting of a bilateral absent superficial peroneal sensory response though findings can be age related. He continues to report some numbness and tingling to his feet and ankle area. Recent B12 was normal and recent A1c was within goal and patient is not diagnosis diabetic. Alcohol intake is only once per month. He does however work with several heavy metals which could play a role. He has not been tested for heavy metal exposures in the past. Seizures: He has not had any seizures since 2011. He is on carbamazepine 400 mg in the morning, 300 mg in the afternoon, and 400 mg in the evening. This was recently decreased from 400 mg t.i.d. due to some slightly elevated levels likely related to some weight loss. He tolerates medication well and has not had any further episodes of loss of consciousness, tonic-clonic movements, staring, or tongue biting during sleep. At the time of his last visit, I ordered a repeat MRI of the brain as well as an oxcarbazepine level. His repeat MRI of the brain did show some bifrontal parietal lobe atrophy [id number] in severity as well as some nonspecific white matter T2 FLAIR signal change. I do not have the previous images from [facility] back in 2022 however there were no areas of atrophy noted on that report from what I can recall. This does raise some concern for possibility of Alzheimer's type dementia especially in the setting of the patient's ongoing cognitive concerns. Since time of our last visit, he has not had any changes compared to what has been described in the above HPI. Prior workup: -MRI brain with and without contrast 10/06/2025 No acute brain abnormality. No abnormal enhancement. Nonspecific white matter T2 FLAIR signal which could be seen patients with migraines. Bifrontal parietal lobe atrophy, mild to moderate. -B12 and TSH level from July 2025: Within normal limits -EMG study to the bilateral lower extremities November 2023: No definite nerve conduction study evidence of a large fiber sensory motor polyneuropathy affecting the lower extremities, although a very mild axonal polyneuropathy could not be completely excluded: Motor and sural sensory distal latencies and conduction velocities are within normal limits. (bilateral absent superficial peroneal sensory responses is a nondiagnostic finding and may represent expected age-related changes). -MRI of the brain without contrast 05/29/2023: No infarct or hemorrhage. Unremarkable MRI of the brain without contrast. -MRI of the cervical spine without contrast 06/28/2023: Multilevel degenerative changes greatest at C6 through C7 and C5 through C6. No abnormal signal within the cervical cord. -MRI of the lumbar spine without contrast 06/28/2023: Multilevel degenerative changes of the lumbar spine most pronounced at L3 through L4 and L5 through S1. Abnormal signal within the soft tissue surrounding L3 through L4 spinous processes as described which could be seen with L[place]on disease. Review of Systems Const All systems reviewed & are unremarkable except as noted in HPI and below Physical Exam Exam Exam: 09/08/2025 MOCA: MOCA total: Executive:02/01 Namin/3 Attention:04/04 Language:12/30 Abstraction:12/01 Delayed recall:01/01 Orientation:04/04 Vital Signs: Last Vital Signs Pulse 56 10/27/25 11:01 Resp 16 10/27/25 11:01 BP 158/76 H 10/27/25 11:01 Pulse Ox 97 10/27/25 11:01 Oxygen Delivery Method Room Air 10/27/25 11:01 BMI result Body Mass Index 33.4 Const General: cooperative, healthy appearing, comfortable and no acute distress Nutritional Appearance: well nourished Orientation/consciousness: patient oriented x3 Limitations: no limitations HEENT Head: Yes normal to inspection and Yes normocephalic Eyes General: appearance normal, both eyes and all related structures Visual Nava: normal visual nava by confrontation Alignment and Position: alignment normal Periorbital: periorbital findings normal Eyelids: Yes eyelids normal Conjunctivae: conjunctivae normal Sclerae: sclerae normal Neuro General: patient oriented x3 and tone normal Cranial nerves: Yes CN's II-XII intact bilaterally and Yes Facial sensation intact/muscles of mastication intact Cognition (Neuro): normal cognition Gait exam (Neuro): Antalgic gait present and Other gait observations present (Slight hunching of the hips) Motor exam (neuro): 5/5 motor strength present throughout and no tremor noted Sensory Exam: sensory level loss detected and Abnormal lower extremity sensory exam (BLE loss of vibratory sensation below level of the ankle) Deep tendon reflexes (DTR's): Right triceps reflex intensity grade: 2+, Left triceps reflex intensity grade: 2+, Rt Biceps (C5, C6): 2+, Left biceps reflex intensity grade: 2+, Right brachioradialis reflex intensity grade: 2+, Left brachioradialis reflex intensity grade: 2+, Right patellar reflex intensity grade: 3+, Left patellar reflex intensity grade: 3+, Right ankle reflex intensity grade: 3+ and Left ankle reflex intensity grade: 3+ Romberg Test: Negative Pupils: Normal pupillary reactivity/response: bilateral Psych Appearance: grossly normal Mental Status: mental status grossly normal Speech and movement: Normal speech and movement present and Clear speech present Affect: normal affect Attitude: cooperative Thought process: Normal thought process present Thought content: Normal thought content present Insight: Good insight present (Psych) Judgement: Good judgement present (Psych) Assessment & Plan Assessment & Plan (1) Memory change: Code(s): R41.3 - Other amnesia Category: Medical (2) Seizure disorder: Code(s): G40.909 - Epilepsy, unspecified, not intractable, without status epilepticus Category: Medical (3) Imbalance: Code(s): R26.89 - Other abnormalities of gait and mobility Category: Medical (4) Falls: Code(s): W19.XXXA - Unspecified fall, initial encounter Category: Medical Plan Ronnie is a 70-year-old male patient with a past medical history of generalized seizures, Britt's esophagus, gout, headaches, hypercholesterolemia, hypertension, nephrolithiasis, obesity, and sleep apnea with the use of a CPAP machine presenting to the clinic for a follow up visit. He has a few primary concerns including difficulty with memory and some imbalance. His seizures which we follow him for are well-controlled and his bladder concerns have completely resolved with a urological procedure (UroLift procedure). Malheur score at last visit was 27/30. His B12 TSH levels within the last year were normal. I did proceed with an MRI of the brain with and without contrast as his memory has been still further declining in his opinion. Noted on the MRI was some bifrontal parietal atrophy not mentioned on previous report from 2022 though I do not have imaging for [id number] comparison at this time. This area of atrophy does raise some concern for possibility of Alzheimer's type dementia especially in the setting of the patient's cognitive decline reports over the course of the last couple of years. His TSH and B12 levels have been normal. He has been wearing his CPAP device at night regularly. Given the finding on his MRI, I think it would be reasonable to proceed with a PET scan for further evaluation and definitive evaluation for possibility of Alzheimer's type dementia. Seizures are stable on current dose of carbamazepine with labs taken at last visit. No recent seizure activity. -PET scan (patient is requesting [place] for testing location) -Encouraged to keep appointment with memory clinic at [facility] for now Orders: Orders PET Brain beta amyloid Today G31.9 - Degenerative disease of nervous system, unspecified, R41.3 - Other amnesia, R90.89 - Other abnormal findings on diagnostic imaging of central nervous system Coding Level of Care Code Est Pt Level 4 (38202) Diagnoses Memory change R41.3 Seizure disorder G40.909 Imbalance R26.89 Falls W19.XXXA
[2025-10-27 11:01] VITALS: BP 158/76; PULSE 56; RESP 16; O2SAT 97; BMI 33.4
--- OUTSIDE RECORDS SUMMARY | 2025-10-27 12:23 | XMS_ITS | Clinical Summary ---
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
--- OUTSIDE RECORDS SUMMARY | 2025-10-27 12:23 | XMS_ITS | Data Portability ---
Author Organization [employer] [employer] CBO ADMIN Address [address] [place] [address] Care Team Providers Care Net Developer With Wcf Name Role Phone АЛЕКСАНДР SIMS Primary Care Provider Assessment No assessment recorded. Plan of Treatment Reminders Order Date Submit Date Provider Last Modified By Organization Details Last Modified Time Details Appointments ULTRASOU ND 30 2025 08:00A M GP [employer] TECH 1 Not available Not available Not available ULTRASOU ND FU 20 2025 08:40A M Radha, SUPERVISOR TELLERS Not available Not available Not available Lab urinalys is, dipstick , auto 2024 025 [email or web address] [facility], [address] [place] [address], [address], 07/07/2025 09:09:45 urinalys is, dipstick , auto 2024 025 [email or web address] [facility], [address] [place] [address], [address], 04/04/2025 15:31:56 culture, urine 2024 025 MARCELA [facility] (Centralized Electronic Ordering - All Locations), Patient Can Go To The Location Of Their Choice, [address] 04/05/2025 18:06:02 urinalys is, dipstick , auto 2024 025 [email or web address] [facility], [address], [address], 02/18/2025 10:45:19 Referral None recorded . Procedures bladder scan (PROC) 2024 025 [email or web address] [facility] [place], [address], [place], [address], 04/04/2025 15:31:56 Surgeries None recorded . Imaging None recorded . Medication Orders None recorded . Patient TargetsNo targets recorded. Patient Instructions Encounter Date Encounter Id Patient Instructions Last Modified By Organization Details Last Modified Time 04/04/2025 [id number] -Stop the tamsulosin -RBUS and follow-up in 3 months [email or web address] Not available 04/04/2025 15:22:10 07/07/2025 [id number] -[facility] 07/07/2025 09:15:34 Reason for Referral None Reported. Results Created Date Observation Date Name Description Value Unit Range Abnormal Flag Note LastModifiedBy Organization Detail LastModifiedTime 02/04/2002/05/2025 URINE CULTU RE, ROUTI NE urine culture, routine Final report Not Available [facility] ([facility]) [address] [facility], [place], [address], 02/05/2025 06:06:08 02/04/20 25 02/05/2025 URINE CULTU RE, ROUTI NE result 1 COMMEN T Cultu re shows less than 10,00 0 colon y formi ng units of bacte dung per jodie liter of urine . This colon y count is not gener ally consi dered to be clini jeffery signi fican t. Not Available [facility] ([facility]) [address] [facility], [place], [address], 02/05/2025 06:06:08 02/04/20 25 02/03/2025 urina lysis , dipst ick, auto Leukocytes Negati ve Not Available [facility] [place] [address], [place], [address], 02/03/2025 15:34:53 02/04/20 25 02/03/2025 urina lysis , dipst ick, auto Nitrite negati ve Not Available [facility] [address], [place], [address], 02/03/2025 15:34:53 02/04/20 25 02/03/2025 urina lysis , dipst ick, auto Urobilinogen .2 Not Available [facility] [place] [address], [place], [address], 02/03/2025 15:34:53 02/04/20 25 02/03/2025 urina lysis , dipst ick, auto Protein Negati ve Not Available [facility] [address], [place], [address], 02/03/2025 15:34:53 02/04/20 25 02/03/2025 urina lysis , dipst ick, auto pH 5.5 Not Available [facility] [address], [place], [address], 02/03/2025 15:34:53 02/04/20 25 02/03/2025 urina lysis , dipst ick, auto Blood Negati ve Not Available [facility] [address], [place], [address], 02/03/2025 15:34:53 02/04/20 25 02/03/2025 urina lysis , dipst ick, auto Specific Warba 1.025 Not Available [facility] [address], [place], [address], 02/03/2025 15:34:53 02/04/20 25 02/03/2025 urina lysis , dipst ick, auto Ketone Negati ve Not Available [facility] [address], [place], [address], 02/03/2025 15:34:53 02/04/20 25 02/03/2025 urina lysis , dipst ick, auto Bilirubin Negati ve Not Available [facility] [address], [place], [address], 02/03/2025 15:34:53 02/04/20 25 02/03/2025 urina lysis , dipst ick, auto Glucose Negati ve Not Available [facility] [address], [place], [address], 02/03/2025 15:34:53 02/18/20 25 02/17/2025 urina lysis , dipst ick, auto Leukocytes Negati ve Not Available [facility] [address], [place], [address], 02/17/2025 09:31:22 02/18/20 25 02/17/2025 urina lysis , dipst ick, auto Nitrite negati ve Not Available [facility] [address], [place], [address], 02/17/2025 09:31:22 02/18/20 25 02/17/2025 urina lysis , dipst ick, auto Urobilinogen .2 Not Available [facility] [place] [address], [place], [address], 02/17/2025 09:31:22 02/18/20 25 02/17/2025 urina lysis , dipst ick, auto Protein Negati ve Not Available [facility] [address], [place], [address], 02/17/2025 09:31:22 02/18/20 25 02/17/2025 urina lysis , dipst ick, auto pH 6.0 Not Available [facility] [address], [place], [address], 02/17/2025 09:31:22 02/18/20 25 02/17/2025 urina lysis , dipst ick, auto Blood Negati ve Not Available [facility] [address], [place], [address], 02/17/2025 09:31:22 02/18/20 25 02/17/2025 urina lysis , dipst ick, auto Specific Warba 1.025 Not Available [facility] [address], [place], [address], 02/17/2025 09:31:22 02/18/20 25 02/17/2025 urina lysis , dipst ick, auto Ketone Negati ve Not Available [facility] [address], [place], [address], 02/17/2025 09:31:22 02/18/20 25 02/17/2025 urina lysis , dipst ick, auto Bilirubin Negati ve Not Available [facility] [address], [place], [address], 02/17/2025 09:31:22 02/18/20 25 02/17/2025 urina lysis , dipst ick, auto Glucose Negati ve Not Available [facility] [address], [place], [address], 02/17/2025 09:31:22 04/04/20 25 04/05/2025 URINE CULTU RESERGEI NE urine culture, routine Final report Not Available [facility] ([facility]) [address], [place], [address], 04/05/2025 18:06:02 04/04/20 25 04/05/2025 URINE CULTU RE, SERGEI NE result 1 COMMEN T Cultu re shows less than 10,00 0 colon y formi ng units of bacte dung per jodie liter of urine . This colon y count is not gener ally consi dered to be clini jeffery signi sunday t. Not Available [facility] ([facility]) [address] [facility], [place], [address], 04/05/2025 18:06:02 04/04/20 25 04/04/2025 urina lysis , dipst ick, auto Leukocytes Negati ve Not Available [facility] [address], [place], [address], 04/04/2025 15:08:26 04/04/20 25 04/04/2025 urina lysis , dipst ick, auto Nitrite negati ve Not Available [facility] [address], [place], [address], 04/04/2025 15:08:26 04/04/20 25 04/04/2025 urina lysis , dipst ick, auto Urobilinogen .2 Not Available [facility] [place] [address], [place], [address], 04/04/2025 15:08:26 04/04/20 25 04/04/2025 urina lysis , dipst ick, auto Protein Negati ve Not Available [facility] [address], [place], [address], 04/04/2025 15:08:26 04/04/20 25 04/04/2025 urina lysis , dipst ick, auto pH 5.5 Not Available [facility] [address], [place], [address], 04/04/2025 15:08:26 04/04/20 25 04/04/2025 urina lysis , dipst ick, auto Blood Negati ve Not Available [facility] [address], [place], [address], 04/04/2025 15:08:26 04/04/20 25 04/04/2025 urina lysis , dipst ick, auto Specific Warba 1.025 Not Available [facility] [address], [place], [address], 04/04/2025 15:08:26 04/04/20 25 04/04/2025 urina lysis , dipst ick, auto Ketone Negati ve Not Available [facility] [address], [place], [address], 04/04/2025 15:08:26 04/04/20 25 04/04/2025 urina lysis , dipst ick, auto Bilirubin Negati ve Not Available [facility] [address], [place], [address], 04/04/2025 15:08:26 04/04/20 25 04/04/2025 urina lysis , dipst ick, auto Glucose Negati ve Not Available [facility] [address], [place], [address], 04/04/2025 15:08:26 04/04/20 25 04/04/2025 bladd er scan (PROC ) Urine Volume 23 Not Available [facility] [place] [address], [place], [address], 04/04/2025 15:08:34 07/07/20 25 07/07/2025 urina lysis , dipst ick, auto Leukocytes Negati ve Not Available [facility] [address], [place], [address], 07/07/2025 08:17:00 07/07/20 25 07/07/2025 urina lysis , dipst ick, auto Nitrite negati ve Not Available [facility] [address], [place], [address], 07/07/2025 08:17:00 07/07/20 25 07/07/2025 urina lysis , dipst ick, auto Urobilinogen .2 Not Available [facility] [place] [address], [place], [address], 07/07/2025 08:17:00 07/07/20 25 07/07/2025 urina lysis , dipst ick, auto Protein Negati ve Not Available [facility] [address], [place], [address], 07/07/2025 08:17:00 07/07/2007/07/2025 urina lysis , dipst ick, auto pH 5.5 Not Available [place] [address], [place], [address], 07/07/2025 08:17:00 07/07/2007/07/2025 urina lysis , dipst ick, auto Blood Negati ve Not Available [facility] [address], [place], [address], 07/07/2025 08:17:00 07/07/20 25 07/07/2025 urina lysis , dipst ick, auto Specific Warba 1.025 Not Available [facility] [address], [place], [address], 07/07/2025 08:17:00 07/07/20 25 07/07/2025 urina lysis , dipst ick, auto Ketone Negati ve Not Available [facility] [address], [place], [address], 07/07/2025 08:17:00 07/07/20 25 07/07/2025 urina lysis , dipst ick, auto Bilirubin Negati ve Not Available [facility] [address], [place], [address], 07/07/2025 08:17:00 07/07/20 25 07/07/2025 urina lysis , dipst ick, auto Glucose Negati ve Not Available [facility] [place] [address], [place], [address], 07/07/2025 08:17:00 03/11/20 25 02/17/2025 US, mina nce No observ ation record ed. [email or web address] Aurelia [address], [place], [address], 03/11/2025 09:19:01 07/08/20 , renal No observ ation record ed. [email or web address] Not Available 2024 08:04:50 07/12/20 25 07/07/2025 , renal No observ ation record ed. [email or web address] [address]urelia [address], [place], [address], 07/14/2025 08:03:00 Result Notes None recorded. Problems Name Problem SNOMED Code Status Onset Date Resolution Date Notes Provider Name and Address Organization Details Recorded Time Benign prostatic hyperplasia with outflow obstruction 733948862 Active 2023 Hadley Montgomery MD [address] [place], [address], [place] - [facility] 5 13:47:07 Prostate specific antigen above reference range 660408387 Active 2023 TESSHAE CHAY null, [place] - [facility] 4 15:56:56 Spasm of urinary bladder 272693154 Active 2024 Radha David APRN [address] [place], [address], [place] - [facility] 5 12:58:45 Retention of urine 900714067 Active 2024 SIMONA LLOYD null, [place] - [facility] 11:17:58 Incomplete emptying of urinary bladder 671592131 Active 2024 ESINU SIMPINI null, [place] - [facility] 14:54:35 Urge incontinence of urine 18851986 Active 2024 Radha Cantoredelshea, SUPERVIS[employer] TELLERS [address] [place], [address], [place] - [facility] 15:02:24 Kidney stone 20174812 Active 2024 Radha Cantordayami, SUPERVIS[employer]LL[employer] [address] [place], [address], [place] - [facility] 15:02:28 Simple renal cyst 11980569 Active 2024 Radha Cantoredelshea, SUPERVIS[employer]LL[employer] [address] [place], [address], [place] - [facility] 11:17:12 Problem Notes None recorded. Procedures Surgical History Date Name Laterality Status Provider Name and Address Organization Details Recorded Time 07/07/20 25 GP-RBUSTRICE completed [facility] - [facility] 07/10/2025 15:17:20 02/20/20 25 FOR VOIDING TRIALS completed [facility] CT [facility] 02/26/2025 14:53:48 02/20/20 25 Brown Catheter Insertion completed [facility] 02/26/2025 14:54:31 02/18/20 25 UroLift -GP completed Hadley Montgomery MD [address] [place], [address], [place] - [facility] 02/17/2025 10:20:35 10/14/20 24 Prostate ultrasound completed [facility] 10/14/2024 15:57:20 10/14/20 24 Cystoscopy (Male) completed [facility] 10/14/2024 14:44:18 09/20/20 24 [facility] 10/10/2024 14:48:51 09/02/20 24 ultrasonography of retroperitoneum [facility] 10/10/2024 14:51:44 Imaging Results None [...] ICD10 Code Diagnosis IMO Codes Diagnosis Note [id number] Hadley Montgomery MD [facility] [place] [address] [place] [address] 10/14/2024 13:22:07 10/14/2024 15:13:11 Benign prostatic hyperplasia with outflow obstruction 561363661 N40.1 N13.8 [id number] - See procedure note.- I counseled pt [...] get PSA lab done prior to procedure. [id number] Danielle Aguilar APRN [facility] [address] [place] [address] 12/11/2024 14:59:54 12/11/2024 15:48:08 Benign prostatic hyperplasia with outflow obstruction 469613978 N40.1 N13.8 [id number] I reviewed pre-op urolift instructio n with [...] will be going home with a catheter. [id number] Hadley Montgomery MD [facility] [place] [address] [place] [address] 02/17/2025 08:45:55 02/17/2025 10:48:37 Benign prostatic hyperplasia with outflow obstruction 555815219 N40.1 N13.8 [id number] - See procedure note.- I counseled pt [...] get PSA lab done prior to procedure. [id number] Hadley Montgomery MD [place] [address] [place] [address] 02/19/2025 09:57:23 02/19/2025 11:05:23 Incomplete emptying of urinary bladder 245467308 R33.9 018414 [id number] Radha David APRN [facility] [address] [place] [address] 04/04/2025 15:02:28 04/04/2025 15:28:34 Benign prostatic hyperplasia with outflow obstruction 613546075 N40.1 N13.8 31599230 -Stop tamsulosin .-Follow-u p in 3 months. Urge incon tinence of urine 89495468 N39.41 319650 -May need to consider medication versus 3rd line therapy if these symptoms worsen. Kidney stone 93440284 N2 0.0 61834 -RBUS in 3 months.-If symptoms return (flank pain etc), please call office dennise. [id number] Radha David APRN [facility] [address] [place] [address] 07/07/2025 08:18:06 07/07/2025 09:20:13 Benign prostatic hyperplasia with outflow obstruction 342914690 N40.1 N13.8 12818053 -Remain off of tamsulosin .-RBUS and follow-up in one year.-PSA check next year. Kidney stone 62214423 N2 0.0 16104 -None noted. RBUS in one year. Simple renal cyst 590872 09 N28.1 42023 -Noted in the left kidney. [id number] Hadley Montgomery MD [place] [address] [address] 07/07/2025 08:18:06 07/07/2025 09:20:13 Benign prostatic hyperplasia with outflow obstruction 028453607 N40.1 N13.8 [id number] Health Concerns Section Related Observation LastModified by Organization Detai ls LastModified Time None Recorded Concern Status LastModified by Organization Details LastModified Time None Recorded Advance Directives Directive None Recorded Payers Insurance Date Sequence Insurance Name Policy Number Policy Jason Covered Member ID Jason Member ID Guarantor Name 07/04/2025 1 [place]: TEGAN Padron [id number] Ronnie Padron 07/22/2025 2 [place]) [id number] Ronnie Padron [id number] Ronnie Padron Notes Date Note Type [...] hematuria or signs of infection. Radha David, SUPERVIS[employer] [address] [place], [address], [facility] 04/06/2025 15:42:09 07/07/2025 text/html ROS as [...] infection. Radha David APRN [address] [place], [address], [facility] 07/07/2025 11:18:05
--- OUTSIDE RECORDS SUMMARY | 2025-10-27 12:23 | XMS_ITS | Clinical Summary ---
Author Organization [facility] includes the [facility] Prior to 03/29/25 Address [address] [place] [address] Care Team Providers Care Leaf Coverer Name Role Phone Cresencio Babrosa MD Primary Care Provider [phone] Allergies Active Allergy Reactions Criticality Noted Date [...] age to complete this topic Care Teams Leaf Coverer Relationship Specialty Start Date End Date Cresencio Barbosa MD PCP - General Rotary Bar Operator 06/16/17
--- OUTSIDE RECORDS SUMMARY | 2025-10-27 12:24 | XMS_ITS | Data Portability ---
Author Organization [place] - [facility] [employer] rose[facility], [email or web address] [place] Address [address] [place] [address] Assessment Encounter Date Assessment Date Assessment LastModified [...] serum or plasma 2024 025 gferrentino [facility], [address] [place] [address], [id number], 07/15/2025 08:04:53 lipid panel, serum 2024 025 gferrentino [facility], [address] [place] [address], [id number], 07/15/2025 08:04:53 uric acid, serum or plasma 2024 025 MARCELA [facility], [address] [place] [address], [id number], 08/17/2025 08:06:42 carbama zepine- 10,11-e poxide, serum 2024 025 MARCELA [facility] (Centralized Electronic Ordering - All Locations), Patient Can Go To The Location Of Their Choice, 01/17/2025 12:05:51 noninva sive colorec arron cancer DNA + occult blood screeni ng, QL, stool 2024 [facility], [address], [address], [place], [address], 04/02/2025 08:29:08 uric acid, serum or plasma [...] Go To The Location Of Their Choice, [id number] 06/16/2024 08:06:39 CBC w/ auto diff 2023 024 MARCELA [facility] (Centralized Electronic Ordering - All Locations), Patient Can Go To The Location Of Their Choice, [id number] 06/16/2024 08:06:38 Referral None recorde d. Procedures None recorde d. Surgeries None recorde d. Imaging electro cardiog celina 2024 025 [email or web address], [address] [place], [address], 01/02/2025 23:43:17 Medication Orders None recorde d. Patient TargetsNo targets recorded. Patient Instructions Encounter Date Encounter Id Patient Instructions Last Modified By Organization Details Last Modified Time 12/31/2024 [id number] Cologuard After Visit Summary Not available 12/31/2024 [...] high in fiber, fruits and vegetables -Take 0522-7337 mg of calcium through diet and supplements -Engage in regular physical activity and weight bearing exercise -Aim to achieve and maintain ideal body mass index Tobacco and Alcohol Use: -Don't smoke or use other tobacco products -Avoid excessive alcohol intake Medications: -If you use any medications (prescriptions, hixt-jbq-lzbsbau, supplements, herbal), always do so as directed [...] high in fiber, fruits and vegetables -Take 9999-9623 mg of calcium through diet and supplements -Engage in regular physical activity and weight bearing exercise -Aim to achieve and maintain ideal body mass index Tobacco and Alcohol Use: -Don't smoke or use other tobacco products -Avoid excessive alcohol intake Medications: -If you use any medications (prescriptions, kpxk-jay-yxcejcg, supplements, herbal), always do so as directed [...] /uL 3.4-10 .8 normal Not Available [facility] ([facility]) [address] [place], [address], 06/16/2024 08:06:38 06/15/20 24 06/16/2024 CBC WITH DIFFE RENTI AL/PL ATELE T RBC 4.18 x10e6 /uL 4.14-5 .80 normal Not Available [facility] ([facility]) [address] [place], [address], 06/16/2024 08:06:38 06/15/2006/16/2024 CBC WITH DIFFE RENTI AL/PL ATELE T hemoglobin 12.8 g/dL 13.0-1 7.7 below low normal Not Available [facility] ([facility]) [address] [place], [address], 06/16/2024 08:06:38 06/15/2006/16/2024 CBC WITH DIFFE RENTI AL/PL ATELE T hematocrit 38.9 % 37.5-5 1.0 normal Not Available [facility] ([facility]) [address] [place], [address], 06/16/2024 08:06:38 06/15/2006/16/2024 CBC WITH DIFFE RENTI AL/PL ATELE T MCV 93 fL 79-97 normal Not Available [facility] ([facility]) [address] [place], [address], 06/16/2024 08:06:38 06/15/2006/16/2024 CBC WITH DIFFE RENTI AL/PL ATELE T MCH 30.6 pg 26.6-3 3.0 normal Not Available [facility] ([facility]) [address] [place], [address], 06/16/2024 08:06:38 06/15/20 24 06/16/2024 CBC WITH DIFFE RENTI AL/PL ATELE T MCHC 32.9 g/dL 31.5-3 5.7 normal Not Available [facility] ([facility]) [address] [facility], [place], [address], 06/16/2024 08:06:38 06/15/20 24 06/16/2024 CBC WITH DIFFE RENTI AL/PL ATELE T RDW 12.8 % 11.6-1 5.4 Not Available [facility] ([facility]) [address] [facility], [place], [address], 06/16/2024 08:06:38 06/15/20 24 06/16/2024 CBC WITH DIFFE RENTI AL/PL ATELE T platelets 191 x10e3 /uL 150-45 0 normal Not Available [facility] ([facility]) [address] [facility], [place], [address], 06/16/2024 08:06:38 06/15/20 24 06/16/2024 CBC WITH DIFFE RENTI AL/PL ATELE T neutrophils 58 % not estab. normal Not Available [facility] ([facility]) [address] [facility], [place], [address], 06/16/2024 08:06:38 06/15/20 24 06/16/2024 CBC WITH DIFFE RENTI AL/PL ATELE T lymphs 29 % not estab. normal Not Available [facility] ([facility]) [address] [facility], [place], [address], 06/16/2024 08:06:38 06/15/20 24 06/16/2024 CBC WITH DIFFE RENTI AL/PL ATELE T monocytes 9 % not estab. normal Not Available [facility] ([facility]) [address] [facility], [place], [address], 06/16/2024 08:06:38 06/15/20 24 06/16/2024 CBC WITH DIFFE RENTI AL/PL ATELE T eos 3 % not estab. normal Not Available [facility] ([facility]) [address] [facility], [place], [address], 06/16/2024 08:06:38 06/15/20 24 06/16/2024 CBC WITH DIFFE RENTI AL/PL ATELE T basos 1 % not estab. normal Not Available [facility] ([facility]) [address] [facility], [place], [address], 06/16/2024 08:06:38 06/15/20 24 06/16/2024 CBC WITH DIFFE RENTI AL/PL ATELE T immature cells BOX REPAIRER Not Available [facility] ([facility]) [address] [facility], [place], [address], 06/16/2024 08:06:38 06/15/20 24 06/16/2024 CBC WITH DIFFE RENTI AL/PL ATELE T neutrophils (absolute) 2.8 x10e3 /uL 1.4-7. 0 normal Not Available [facility] ([facility]) [address] [place], [address], 06/16/2024 08:06:38 06/15/20 24 06/16/2024 CBC WITH DIFFE RENTI AL/PL ATELE T lymphs (absolute) 1.4 x10e3 /uL 0.7-3. 1 normal Not Available [facility] ([facility]) [address] [place], [address], 06/16/2024 08:06:38 06/15/20 24 06/16/2024 CBC WITH DIFFE RENTI AL/PL ATELE T monocytes(ab solute) 0.4 x10e3 /uL 0.1-0. 9 normal Not Available [facility] ([facility]) [address] [place], [address], 06/16/2024 08:06:38 06/15/20 24 06/16/2024 CBC WITH DIFFE RENTI AL/PL ATELE T eos (absolute) 0.2 x10e3 /uL 0.0-0. 4 normal Not Available [facility] ([facility]) [address] [facility], [place], [address], 06/16/2024 08:06:38 06/15/20 24 06/16/2024 CBC WITH DIFFE RENTI AL/PL ATELE T baso (absolute) 0.0 x10e3 /uL 0.0-0. 2 normal Not Available [facility] ([facility]) [address] [facility], [place], [address], 06/16/2024 08:06:38 06/15/20 24 06/16/2024 CBC WITH DIFFE RENTI AL/PL ATELE T immature granulocytes 0 % not estab. Not Available [facility] ([facility]) [address] [facility], [place], [address], 06/16/2024 08:06:38 06/15/20 24 06/16/2024 CBC WITH DIFFE RENTI AL/PL ATELE T immature grans (abs) 0.0 x10e3 /uL 0.0-0. 1 Not Available [facility] ([facility]) [address] [facility], [place], [address], 06/16/2024 08:06:38 06/15/20 24 06/16/2024 CBC WITH DIFFE RENTI AL/PL ATELE T NRBC BOX REPAIRER Not Available [facility] ([facility]) [address] [facility], [place], [address], 06/16/2024 08:06:38 06/15/20 24 06/16/2024 CBC WITH DIFFE RENTI AL/PL ATELE T hematology comments: BOX REPAIRER Not Available [facility] ([facility]) [address] [facility], [place], [address], 06/16/2024 08:06:38 06/15/20 24 06/16/2024 COMP. METAB OLIC PANEL (14) glucose 96 mg/dL 70-99 normal Not Available [facility] ([facility]) [address] [facility] [place], [address], 06/16/2024 08:06:39 06/15/20 24 06/16/2024 COMP. METAB OLIC PANEL (14) BUN 16 mg/dL 8-27 normal Not Available [facility] ([facility]) [address] [facility] [place], [address], 06/16/2024 08:06:39 06/15/20 24 06/16/2024 COMP. METAB OLIC PANEL (14) creatinine 0.95 mg/dL 0.76-1 .27 normal Not Available [facility] ([facility]) [address] [facility] [place], [address], 06/16/2024 08:06:39 06/15/20 24 06/16/2024 COMP. METAB OLIC PANEL (14) eGFR 88 mL/mi n/1.7 3 >59 normal Not Available [facility] ([facility]) [address] [facility] [place], [address], 06/16/2024 08:06:39 06/15/20 24 06/16/2024 COMP. METAB OLIC PANEL (14) BUN/creatini ne ratio 17 10-24 normal Not Available [facility] ([facility]) [address] [place], [address], 06/16/2024 08:06:39 06/15/20 24 06/16/2024 COMP. METAB OLIC PANEL (14) sodium 142 mmol/ L 134-14 4 normal Not Available [facility] ([facility]) [address] [place], [address], 06/16/2024 08:06:39 06/15/20 24 06/16/2024 COMP. METAB OLIC PANEL (14) potassium 4.4 mmol/ L 3.5-5. 2 normal Not Available [facility] ([facility]) [address] [place], [address], 06/16/2024 08:06:39 06/15/20 24 06/16/2024 COMP. METAB OLIC PANEL (14) chloride 105 mmol/ L 96-106 normal Not Available [facility] ([facility]) [address] [place], [address], 06/16/2024 08:06:39 06/15/20 24 06/16/2024 COMP. METAB OLIC PANEL (14) carbon dioxide, total 24 mmol/ L 20-29 normal Not Available [facility] ([facility]) [address] [place], [address], 06/16/2024 08:06:39 06/15/20 24 06/16/2024 COMP. METAB OLIC PANEL (14) calcium 9.2 mg/dL 8.6-10 .2 normal Not Available [facility] ([facility]) [address] [place], [address], 06/16/2024 08:06:39 06/15/20 24 06/16/2024 COMP. METAB OLIC PANEL (14) protein, total 6.4 g/dL 6.0-8. 5 normal Not Available [facility] ([facility]) [address] [place], [address], 06/16/2024 08:06:39 06/15/20 24 06/16/2024 COMP. METAB OLIC PANEL (14) albumin 4.2 g/dL 3.9-4. 9 normal Not Available [facility] ([facility]) [address] [place], [address], 06/16/2024 08:06:39 06/15/20 24 06/16/2024 COMP. METAB OLIC PANEL (14) globulin, total 2.2 g/dL 1.5-4. 5 Not Available [facility] ([facility]) [address] [place], [address], 06/16/2024 08:06:39 06/15/20 24 06/16/2024 COMP. METAB OLIC PANEL (14) bilirubin, total 0.4 mg/dL 0.0-1. 2 normal Not Available [facility] ([facility]) [address] [facility] [place], [address], 06/16/2024 08:06:39 06/15/20 24 06/16/2024 COMP. METAB OLIC PANEL (14) alkaline phosphatase 84 IU/L 44-121 normal Not Available [facility] ([facility]) [address] [facility] [place], [address], 06/16/2024 08:06:39 06/15/20 24 06/16/2024 COMP. METAB OLIC PANEL (14) AST (SGOT) 21 IU/L 0-40 normal Not Available [facility] ([facility]) [address] [facility] [place], [address], 06/16/2024 08:06:39 06/15/20 24 06/16/2024 COMP. METAB OLIC PANEL (14) ALT (SGPT) 21 IU/L 0-44 normal Not Available [facility] ([facility]) [address] [facility], [place], [address], 06/16/2024 08:06:39 06/15/20 24 06/16/2024 URINA LYSIS , COMPL ETE specific gravity 1.023 1.005- 1.030 normal Not Available [facility] ([facility]) [address] [facility] [place], [address], 06/16/2024 08:06:39 06/15/20 24 06/16/2024 URINA LYSIS , COMPL ETE pH 5.5 5.0-7. 5 normal Not Available [facility] ([facility]) [address] [facility] [place], [address], 06/16/2024 08:06:39 06/15/20 24 06/16/2024 URINA LYSIS , COMPL ETE urine-color YELLOW yellow Not Available [facility] ([facility]) [address] [facility], [place], [address], 06/16/2024 08:06:39 06/15/20 24 06/16/2024 URINA LYSIS , COMPL ETE appearance CLEAR clear Not Available [facility] ([facility]) [address] [facility], [place], [address], 06/16/2024 08:06:39 06/15/20 24 06/16/2024 URINA LYSIS , COMPL ETE WBC esterase NEGATI VE negati ve Not Available [facility] ([facility]) [address] [facility], [place], [address], 06/16/2024 08:06:39 06/15/20 24 06/16/2024 URINA LYSIS , COMPL ETE protein NEGATI VE negati ve/tra ce Not Available [facility] ([facility]) [address] [facility], [place], [address], 06/16/2024 08:06:39 06/15/20 24 06/16/2024 URINA LYSIS , COMPL ETE glucose NEGATI VE negati ve Not Available [facility] ([facility]) [address] [facility], [place], [address], 06/16/2024 08:06:39 06/15/20 24 06/16/2024 URINA LYSIS , COMPL ETE ketones NEGATI VE negati ve Not Available [facility] ([facility]) [address] [facility], [place], [address], 06/16/2024 08:06:39 06/15/20 24 06/16/2024 URINA LYSIS , COMPL ETE occult blood NEGATI VE negati ve Not Available [facility] ([facility]) [address] [place], [address], 06/16/2024 08:06:39 06/15/20 24 06/16/2024 URINA LYSIS , COMPL ETE bilirubin NEGATI VE negati ve Not Available [facility] ([facility]) [address] [place], [address], 06/16/2024 08:06:39 06/15/20 24 06/16/2024 URINA LYSIS , COMPL ETE urobilinogen ,semi-qn 0.2 mg/dL 0.2-1. 0 normal Not Available [facility] ([facility]) [address] [place], [address], 06/16/2024 08:06:39 06/15/20 24 06/16/2024 URINA LYSIS , COMPL ETE nitrite, urine NEGATI VE negati ve Not Available [facility] ([facility]) [address] [facility], [place], [address], 06/16/2024 08:06:39 06/15/20 24 06/16/2024 URINA LYSIS , COMPL ETE microscopic examination COMMEN T Micro scopi c follo ws if indic ated. Not Available [facility] ([facility]) [address] [facility], [place], [address], 06/16/2024 08:06:39 06/15/20 24 06/16/2024 URINA LYSIS , COMPL ETE microscopic examination SEE BELOW: Micro scopi c was indic ated and was perfo rmed. Not Available [facility] ([facility]) [address] [facility], [place], [address], 06/16/2024 08:06:39 06/15/20 24 06/16/2024 URINA LYSIS , COMPL ETE WBC NONE SEEN /hpf 0 - 5 Not Available [facility] ([facility]) [address] [place], [address], 06/16/2024 08:06:39 06/15/20 24 06/16/2024 URINA LYSIS , COMPL ETE RBC NONE SEEN /hpf 0 - 2 Not Available [facility] ([facility]) [address] [facility], [place], [address], 06/16/2024 08:06:39 06/15/20 24 06/16/2024 URINA LYSIS , COMPL ETE epithelial cells (non renal) NONE SEEN /hpf 0 - 10 Not Available [facility] ([facility]) [address] [facility], [place], [address], 06/16/2024 08:06:39 06/15/20 24 06/16/2024 URINA LYSIS , COMPL ETE epithelial cells (renal) BOX REPAIRER Not Available [facility] ([facility]) [address] [facility], [place], [address], 06/16/2024 08:06:39 06/15/20 24 06/16/2024 URINA LYSIS , COMPL ETE casts NONE SEEN /lpf none seen Not Available [facility] ([facility]) [address] [facility], [place], [address], 06/16/2024 08:06:39 06/15/20 24 06/16/2024 URINA LYSIS , COMPL ETE cast type BOX REPAIRER Not Available [facility] ([facility]) [address] [facility], [place], [address], 06/16/2024 08:06:39 06/15/20 24 06/16/2024 URINA LYSIS , COMPL ETE crystals BOX REPAIRER Not Available [facility] ([facility]) [address] [place], [address], 06/16/2024 08:06:39 06/15/20 24 06/16/2024 URINA LYSIS , COMPL ETE crystal type BOX REPAIRER Not Available [facility] ([facility]) [address] [place], [address], 06/16/2024 08:06:39 06/15/20 24 06/16/2024 URINA LYSIS , COMPL ETE mucus threads BOX REPAIRER Not Available [facility] ([facility]) [address] [facility], [place], [address], 06/16/2024 08:06:39 06/15/20 24 06/16/2024 URINA LYSIS , COMPL ETE bacteria NONE SEEN none seen/f ew Not Available [facility] ([facility]) [address] [facility], [place], [address], 06/16/2024 08:06:39 06/15/20 24 06/16/2024 URINA LYSIS , COMPL ETE yeast BOX REPAIRER Not Available [facility] ([facility]) [address] [facility], [place], [address], 06/16/2024 08:06:39 06/15/20 24 06/16/2024 URINA LYSIS , COMPL ETE trichomonas BOX REPAIRER Not Available [facility] ([facility]) [address] [facility], [place], [address], 06/16/2024 08:06:39 06/15/20 24 06/16/2024 URINA LYSIS , COMPL ETE comment BOX REPAIRER Not Available [facility] ([facility]) [address] [facility], [place], [address], 06/16/2024 08:06:39 01/12/20 25 01/12/2025 CBC WITH DIFFE RENTI AL/PL ATELE T WBC 4.9 x10e3 /uL 3.4-10 .8 normal Not Available [facility] ([facility]) [address] [facility], [place], [address], 01/17/2025 12:05:48 01/12/20 25 01/12/2025 CBC WITH DIFFE RENTI AL/PL ATELE T RBC 4.42 x10e6 /uL 4.14-5 .80 normal Not Available [facility] ([facility]) [address] [facility], [place], [address], 01/17/2025 12:05:48 01/12/20 25 01/12/2025 CBC WITH DIFFE RENTI AL/PL ATELE T hemoglobin 13.5 g/dL 13.0-1 7.7 normal Not Available [facility] ([facility]) [address] [facility], [place], [address], 01/17/2025 12:05:48 01/12/20 25 01/12/2025 CBC WITH DIFFE RENTI AL/PL ATELE T hematocrit 41.3 % 37.5-5 1.0 normal Not Available [facility] ([facility]) [address] [facility], [place], [address], 01/17/2025 12:05:48 01/12/2001/12/2025 CBC WITH DIFFE RENTI AL/PL ATELE T MCV 93 fL 79-97 normal Not Available [facility] ([facility]) [address] [place], [address], 01/17/2025 12:05:48 01/12/20 25 01/12/2025 CBC WITH DIFFE RENTI AL/PL ATELE T MCH 30.5 pg 26.6-3 3.0 normal Not Available [facility] ([facility]) [address] [place], [address], 01/17/2025 12:05:48 01/12/2001/12/2025 CBC WITH DIFFE RENTI AL/PL ATELE T MCHC 32.7 g/dL 31.5-3 5.7 normal Not Available [facility] ([facility]) [address] [place], [address], 01/17/2025 12:05:48 01/12/2001/12/2025 CBC WITH DIFFE RENTI AL/PL ATELE T RDW 12.9 % 11.6-1 5.4 Not Available [facility] ([facility]) [address] [place], [address], 01/17/2025 12:05:48 01/12/2001/12/2025 CBC WITH DIFFE RENTI AL/PL ATELE T platelets 218 x10e3 /uL 150-45 0 normal Not Available [facility] ([facility]) [address] [facility], [place], [address], 01/17/2025 12:05:48 01/12/20 25 01/12/2025 CBC WITH DIFFE RENTI AL/PL ATELE T neutrophils 55 % not estab. normal Not Available [facility] ([facility]) [address] [facility], [place], [address], 01/17/2025 12:05:48 01/12/20 25 01/12/2025 CBC WITH DIFFE RENTI AL/PL ATELE T lymphs 29 % not estab. normal Not Available [facility] ([facility]) [address] [facility], [place], [address], 01/17/2025 12:05:48 01/12/20 25 01/12/2025 CBC WITH DIFFE RENTI AL/PL ATELE T monocytes 10 % not estab. normal Not Available [facility] ([facility]) [address] [place], [address], 01/17/2025 12:05:48 01/12/20 25 01/12/2025 CBC WITH DIFFE RENTI AL/PL ATELE T eos 5 % not estab. normal Not Available [facility] ([facility]) [address] [facility], [place], [address], 01/17/2025 12:05:48 01/12/20 25 01/12/2025 CBC WITH DIFFE RENTI AL/PL ATELE T basos 1 % not estab. normal Not Available [facility] ([facility]) [address] [facility], [place], [address], 01/17/2025 12:05:48 01/12/20 25 01/12/2025 CBC WITH DIFFE RENTI AL/PL ATELE T immature cells BOX REPAIRER Not Available [facility] ([facility]) [address] [facility], [place], [address], 01/17/2025 12:05:48 01/12/2001/12/2025 CBC WITH DIFFE RENTI AL/PL ATELE T neutrophils (absolute) 2.7 x10e3 /uL 1.4-7. 0 normal Not Available [facility] ([facility]) [address] [place], [address], 01/17/2025 12:05:48 01/12/20 25 01/12/2025 CBC WITH DIFFE RENTI AL/PL ATELE T lymphs (absolute) 1.4 x10e3 /uL 0.7-3. 1 normal Not Available [facility] ([facility]) [address] [place], [address], 01/17/2025 12:05:48 01/12/20 25 01/12/2025 CBC WITH DIFFE RENTI AL/PL ATELE T monocytes(ab solute) 0.5 x10e3 /uL 0.1-0. 9 normal Not Available [facility] ([facility]) [address] [place], [address], 01/17/2025 12:05:48 01/12/20 25 01/12/2025 CBC WITH DIFFE RENTI AL/PL ATELE T eos (absolute) 0.2 x10e3 /uL 0.0-0. 4 normal Not Available [facility] ([facility]) [address] [place], [address], 01/17/2025 12:05:48 01/12/20 25 01/12/2025 CBC WITH DIFFE RENTI AL/PL ATELE T baso (absolute) 0.1 x10e3 /uL 0.0-0. 2 normal Not Available [facility] ([facility]) [address] [place], [address], 01/17/2025 12:05:48 01/12/20 25 01/12/2025 CBC WITH DIFFE RENTI AL/PL ATELE T immature granulocytes 0 % not estab. Not Available [facility] ([facility]) [address] [facility], [place], [address], 01/17/2025 12:05:48 01/12/20 25 01/12/2025 CBC WITH DIFFE RENTI AL/PL ATELE T immature grans (abs) 0.0 x10e3 /uL 0.0-0. 1 Not Available [facility] ([facility]) [address] [facility], [place], [address], 01/17/2025 12:05:48 01/12/20 25 01/12/2025 CBC WITH DIFFE RENTI AL/PL ATELE T NRBC BOX REPAIRER Not Available [facility] ([facility]) [address] [facility], [place], [address], 01/17/2025 12:05:48 01/12/20 25 01/12/2025 CBC WITH DIFFE RENTI AL/PL ATELE T hematology comments: BOX REPAIRER Not Available [facility] ([facility]) [address] [facility], [place], [address], 01/17/2025 12:05:48 01/12/20 25 01/12/2025 COMP. METAB OLIC PANEL (14) glucose 101 mg/dL 70-99 above high normal Not Available [facility] ([facility]) [address] [facility], [place], [address], 01/17/2025 12:05:49 01/12/20 25 01/12/2025 COMP. METAB OLIC PANEL (14) BUN 15 mg/dL 8-27 normal Not Available [facility] ([facility]) [address] [facility], [place], [address], 01/17/2025 12:05:49 01/12/20 25 01/12/2025 COMP. METAB OLIC PANEL (14) creatinine 0.92 mg/dL 0.76-1 .27 normal Not Available [facility] ([facility]) [address], [place], [address], 01/17/2025 12:05:49 01/12/20 25 01/12/2025 COMP. METAB OLIC PANEL (14) eGFR 91 mL/mi n/1.7 3 >59 normal Not Available [facility] ([facility]) [address], [place], [address], 01/17/2025 12:05:49 01/12/20 25 01/12/2025 COMP. METAB OLIC PANEL (14) BUN/creatini ne ratio 16 10-24 normal Not Available [facility] ([facility]) [address] [place], [address], 01/17/2025 12:05:49 01/12/20 25 01/12/2025 COMP. METAB OLIC PANEL (14) sodium 139 mmol/ L 134-14 4 normal Not Available [facility] ([facility]) [address], [place], [address], 01/17/2025 12:05:49 01/12/20 25 01/12/2025 COMP. METAB OLIC PANEL (14) potassium 4.6 mmol/ L 3.5-5. 2 normal Not Available [facility] ([facility]) [address] [facility] [place], [address], 01/17/2025 12:05:49 01/12/20 25 01/12/2025 COMP. METAB OLIC PANEL (14) chloride 101 mmol/ L 96-106 normal Not Available [facility] ([facility]) [address] [facility] [place], [address], 01/17/2025 12:05:49 01/12/20 25 01/12/2025 COMP. METAB OLIC PANEL (14) carbon dioxide, total 23 mmol/ L 20-29 normal Not Available [facility] ([facility]) [address] [facility] [place], [address], 01/17/2025 12:05:49 01/12/20 25 01/12/2025 COMP. METAB OLIC PANEL (14) calcium 9.1 mg/dL 8.6-10 .2 normal Not Available [facility] ([facility]) [address] [place], [address], 01/17/2025 12:05:49 01/12/20 25 01/12/2025 COMP. METAB OLIC PANEL (14) protein, total 6.8 g/dL 6.0-8. 5 normal Not Available [facility] ([facility]) [address] [place], [address], 01/17/2025 12:05:49 01/12/20 25 01/12/2025 COMP. METAB OLIC PANEL (14) albumin 4.3 g/dL 3.9-4. 9 normal Not Available [facility] ([facility]) [address] [place], [address], 01/17/2025 12:05:49 01/12/20 25 01/12/2025 COMP. METAB OLIC PANEL (14) globulin, total 2.5 g/dL 1.5-4. 5 Not Available [facility] ([facility]) [address] [place], [address], 01/17/2025 12:05:49 01/12/20 25 01/12/2025 COMP. METAB OLIC PANEL (14) bilirubin, total 0.5 mg/dL 0.0-1. 2 normal Not Available [facility] ([facility]) [address] [place], [address], 01/17/2025 12:05:49 01/12/20 25 01/12/2025 COMP. METAB OLIC PANEL (14) alkaline phosphatase 97 IU/L 44-121 normal Not Available [facility] ([facility]) [address] [place], [address], 01/17/2025 12:05:49 01/12/20 25 01/12/2025 COMP. METAB OLIC PANEL (14) AST (SGOT) 23 IU/L 0-40 normal Not Available [facility] ([facility]) [address] [place], [address], 01/17/2025 12:05:49 01/12/20 25 01/12/2025 COMP. METAB OLIC PANEL (14) ALT (SGPT) 23 IU/L 0-44 normal Not Available [facility] ([facility]) [address] [place], [address], 01/17/2025 12:05:49 01/12/20 25 01/12/2025 LIPID PANEL cholesterol, total 200 mg/dL 100-19 9 above high normal Not Available [facility] ([facility]) [address] [place], [address], 01/17/2025 12:05:50 01/12/20 25 01/12/2025 LIPID PANEL triglyceride s 112 mg/dL 0-149 normal Not Available [facility] ([facility]) [address] [place], [address], 01/17/2025 12:05:50 01/12/20 25 01/12/2025 LIPID PANEL HDL cholesterol 64 mg/dL >39 normal Not Available [facility] ([facility]) [address] [place], [address], 01/17/2025 12:05:50 01/12/20 25 01/12/2025 LIPID PANEL VLDL cholesterol paulino 20 mg/dL 5-40 Not Available [facility] ([facility]) [address] [place], [address], 01/17/2025 12:05:50 01/12/20 25 01/12/2025 LIPID PANEL LDL [facility] 116 mg/dL 0-99 above high normal Not Available [facility] ([facility]) [address] [place], [address], 01/17/2025 12:05:50 01/12/2001/12/2025 LIPID PANEL 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 It has not been clear ed or appro gisela by the Food and Drug Admin istra tion. Not Available [facility] ([facility]) [address] [facility], [place], [address], 01/17/2025 12:05:51 01/12/20 25 01/12/2025 TSH TSH 0.648 uIU/m L 0.450- 4.500 normal Not Available [facility] ([facility]) [address] [place], [address], 01/17/2025 12:05:52 01/12/20 25 01/12/2025 URIC ACID uric acid 5.0 mg/dL 3.8-8. 4 normal Thera ellie dowling t for gout patie nts: <6.0 Not Available [facility] ([facility]) [address] [place], [address], 01/17/2025 12:05:53 08/16/2008/17/2025 BASIC METAB OLIC PANEL (8) glucose 96 mg/dL 70-99 normal Not Available [facility] ([facility]) [address] [place], [address], 08/17/2025 08:06:41 08/16/20 25 08/17/2025 BASIC METAB OLIC PANEL (8) BUN 15 mg/dL 8-27 normal Not Available [facility] ([facility]) [address] [facility] [place], [address], 08/17/2025 08:06:41 08/16/20 25 08/17/2025 BASIC METAB OLIC PANEL (8) creatinine 0.96 mg/dL 0.76-1 .27 normal Not Available [facility] ([facility]) [address] [facility] [place], [address], 08/17/2025 08:06:41 08/16/2008/17/2025 BASIC METAB OLIC PANEL (8) eGFR 86 mL/mi n/1.7 3 >59 normal Not Available [facility] ([facility]) [address] [facility] [place], [address], 08/17/2025 08:06:41 08/16/2008/17/2025 BASIC METAB OLIC PANEL (8) BUN/creatini ne ratio 16 10-24 normal Not Available [facility] ([facility]) [address] [place], [address], 08/17/2025 08:06:41 08/16/20 25 08/17/2025 BASIC METAB OLIC PANEL (8) sodium 140 mmol/ L 134-14 4 normal Not Available [facility] ([facility]) [address] [place], [address], 08/17/2025 08:06:41 08/16/2008/17/2025 BASIC METAB OLIC PANEL (8) potassium 4.3 mmol/ L 3.5-5. 2 normal Not Available [facility] ([facility]) [address] [place], [address], 08/17/2025 08:06:41 08/16/20 25 08/17/2025 BASIC METAB OLIC PANEL (8) chloride 101 mmol/ L 96-106 normal Not Available [facility] ([facility]) [address] [place], [address], 08/17/2025 08:06:41 08/16/2008/17/2025 BASIC METAB OLIC PANEL (8) carbon dioxide, total 25 mmol/ L 20-29 normal Not Available [facility] ([facility]) [address] [place], [address], 08/17/2025 08:06:41 08/16/2008/17/2025 BASIC METAB OLIC PANEL (8) calcium 9.1 mg/dL 8.6-10 .2 normal Not Available [facility] ([facility]) [address] [place], [address], 08/17/2025 08:06:41 08/16/2008/17/2025 LIPID PANEL cholesterol, total 178 mg/dL 100-19 9 normal Not Available [facility] ([facility]) [address] [place], [address], 08/17/2025 08:06:42 08/16/2008/17/2025 LIPID PANEL triglyceride s 65 mg/dL 0-149 normal Not Available [facility] ([facility]) [address] [place], [address], 08/17/2025 08:06:42 08/16/20 25 08/17/2025 LIPID PANEL HDL cholesterol 73 mg/dL >39 normal Not Available [facility] ([facility]) [address] [place], [address], 08/17/2025 08:06:42 08/16/20 25 08/17/2025 LIPID PANEL VLDL cholesterol paulino 12 mg/dL 5-40 Not Available [facility] ([facility]) [address] [place], [address], 08/17/2025 08:06:42 08/16/20 25 08/17/2025 LIPID PANEL LDL chol calc (nih) 93 mg/dL 0-99 Not Available [facility] ([facility]) [address] [facility], [place], [address], 08/17/2025 08:06:42 08/16/2008/17/2025 LIPID PANEL LDL calc 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 4 normal Thera peuti c targe t for gout patie nts: <6.0 Not Available [facility] ([facility]) [address] [facility], [place], [address], 08/17/2025 08:06:42 08/07/2008/02/2024 US, kidne y No observ ation record ed. [facility] [address] [facility], [place], [address], 08/07/2024 16:52:28 08/12/2003/22/2022 US, renal No observ ation record ed. Not Available 08:46:24 08/12/2006/28/2023 MRI, cervi paulino spine , w/o contr ast No observ ation record ed. Not Available 08:47:54 08/12/2006/28/2023 MRI, lumba r spine , w/o contr ast No observ ation record ed. Not Available 08:55:45 10/09/2010/02/2024 polys omnog celina No observ ation record ed. [facility] [address], [place], [address], 10/11/2024 11:05:58 01/01/20 25 elect williams holm am No observ ation record ed. [email or web address], [place], [address], 12/31/2024 16:41:03 01/02/20 25 12/31/2024 garima holm am No observ ation record ed. [place] [facility], [place], [address], 01/01/2025 15:50:36 10/06/20 25 10/04/2025 MRI, brain + brain stem, w/o contr ast No observ ation record ed. [address], [address], 10/06/2025 09:46:32 Result Notes None recorded. Problems Name Problem SNOMED Code Status Onset Date Resolution Date Notes Provider Name and Address Organization Details Recorded Time Seizure disorder 715028775 Active 2011 Seizure disorder Not Available [facility] 4 01:31:27 Obstructi ve sleep apnea syndrome 45665105 Active 2019 Obstructi ve sleep apnea syndrome Not Available [facility] 4 01:31:28 Hypertens karly disorder 92924028 Active 2019 White coat syndrome with hypertens ion Not Available [facility] 4 01:31:28 Chronic gouty arthritis 67514542 Active 2019 Chronic idiopathi c gout of foot Cresencio Barbosa MD [address] [place] [address], [address] [place] [address], [address] , [place] [facility] 4 08:29:42 Barretts esophagus with dysplasia 67220320032 04908 Active 2019 Britt's esophagus with dysplasia Not Available [facility] 4 01:31:27 Hyperchol esterolem ia 73308974 Active 2019 Hyperchol esterolem ia Cresencio Barbosa MD [address] [place] [address], [address], [place], [address] , [place] [facility] [place] 4 08:29:30 Kidney stone 88793837 Active 2019 Nephrolit hiasis Not Available [facility] 4 01:31:28 Osteoarth ritis of bilateral hip joints 94819511284 9105 Active 2021 Osteoarth ritis of both hips Not Available [facility] 4 01:31:27 Body mass index 30+ - obesity 614261060 Active 2022 Obesity (BMI 30-39.9) Cresencio Barbosa MD [address] [place] [address], [address] [place] [address], [place], [address] , [place] - [facility] 4 08:31:09 Calcific tendiniti s of right ankle 20726254485 9104 Active 2023 Cresencio Barbosa MD [address] [place] [address], [address] [place] [address], [place], [address] , [place] - [place] [facility] 4 08:48:20 Benign prostatic hyperplas ia with outflow obstructi on 825712040 Active 2024 Cresencio Barbosa MD [address] [place] [address], [address] [place] [address], [place], [address] , [place] - [facility] [place] 5 16:18:23 Seasonal allergy 536691437 Active 2024 Padmini vilchis, [place] - [facility] [place] 5 14:59:17 Allergic reaction to bee sting 517823506 Active 2024 Cresencio Barbosa MD [address] [place] [address], [address] [place] [address], [place], [address] , [place] - [facility] [place] 5 15:50:14 Essential hypertens ion 41271056 Active 2024 Crystal Mary null, [place] - [place] [facility] 5 16:49:51 Problem Notes None recorded. Procedures Surgical History Date Name Laterality Status Provider Name and Address Organization Details Recorded Time 025 AWV - male prevention plan completed Cresencio Barbosa MD [address] [place] [address], [address] [place] [address], [place], [address], [place] - [place] [facility] 12/31/2024 16:36:53 025 Advance Care Planning Consultation completed Cresencio Barbosa MD [address] [place] [address], [address] [place] [address], [address], [place] - [place] [facility] 12/31/2024 16:37:12 025 AWV - safety evaluation completed Cresencio Barbosa MD [address] [place] [address], [address], [place] - [place] [facility] 12/31/2024 16:37:00 024 Advance Care Planning Consultation completed [facility] [place] - [place] [facility] 12/15/2023 08:07:35 024 AWV - safety evaluation completed [facility] [place] - [place] [facility] 12/15/2023 08:07:35 024 AWV - male prevention plan completed [facility] [place] - [place] [facility] 12/15/2023 08:07:35 prosthetic arthroplasty of hip completed Cresencio Barbosa MD [address] [place] [address], [address] [place] [address], [address], [place] - [place] [facility] 12/15/2023 08:34:15 partial repair of rotator cuff completed Cresencio Barbosa MD [address] [place] [address], [address] [place] [address], [address], [place] - [place] [facility] 12/15/2023 08:34:42 cholecystectomy completed Cresencio Barbosa MD [address] [place] [address], [address], [place] - [place] [facility] 12/15/2023 08:35:12 Imaging Results None recorded. Procedure Notes None recorded. Medical Equipment None Reported. Allergies Allergen ID Allergen Name Allergen Category Reaction Reaction Severity Criticality Documentation Date Start Date Code Code System Note Provider Name and Address Organization Details Recorded Time 125417 codeine medicatio n Not available Not available Not available 02/24/20232016 2670 RxNorm Not Available [facility] 19:37:03 620443 honey bee venom environme nt Not available Not available Not available 02/24/20232020 86749 7 RxNorm React ion: Hector deei s, kenia ity: Kenia e Not Available [facility] 3 19:37:04 Medications Name Sig Start Date [...] TABLET BY MOUTH 3 TIMES A DAY FOR 90 DAYS active Not Available Not Available No [...] Updated DateTime 5 176.5 cm 38 kg/m2 021398. 31 g 60 /min 97 % 130/86 mm[Hg] Hector Jose Manuel [facility] 5 15:33:57 Date Recorded Systolic And Diastolic Provider Name and Address Organization Details Last Updated DateTime 02/23/2024 132/78 mm[Hg] Cresencio Barbosa MD [address] [place] [address], [address] [place] [address], [address], [facility] 02/23/2024 08:21:15 Date Recorded Body height Body mass index (BMI) Body weight Oxygen saturation Heart rate Body temperature Provider Name and Address Organization Details Last Updated DateTime 4 176.5 cm 37.9 kg/m2 182496. 09 g 98 % 63 /min 98.1 [degF] Padmini rowe [facility] 4 08:09:56 Date Recorded Body height Body mass index (BMI) Body weight Respiratory rate Heart rate Systolic And Diastolic Provider Name and Address Organization Details Last Updated DateTime 4 176.5 cm 37.3 kg/m2 353635. 65 g 18 /min 78 /min 136/80 mm[Hg] Cresencio Barbosa MD [address] [place] [address], [address] [place] [address], [phone], [facility] 4 08:20:20 Date Recorded Systolic And Diastolic Provider Name and Address Organization Details Last Updated DateTime 07/08/2025 152/88 mm[Hg] Cresencio Barbosa MD [address] [place] [address], [address] Floor, [place], [address], [facility] 07/08/2025 16:23:59 Date Recorded Body height Body mass index (BMI) Body weight Oxygen saturation Heart rate Provider Name and Address Organization Details Last Updated DateTime 07/08/2025 176.5 cm 35.7 kg/m2 610286.1 3 g 98 % 67 /min Crystal Laviolette [facility] 16:10:37 Social History Question Answer Notes LastModified by Organizat ion Details LastModified Time Tobacco Smoking Status Former Smoker Hector Richard mame, [facility] 12/31/2024 15:35:18 Do You Have An [...] Or The Highest Degree You Have Received? [id number] Information not available 12/31/2024 Who Is Your Employer? [employer] Information not available 12/31/2024 How Many Days [...] Do You Have A Medical Power Of Editorial Intern? 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 No Information not available 12/15/2023 What is your exercise level? Moderate Information not available 12/31/2024 Mental Status Question Answer Note LastModified by Organizat ion Details LastModified Time Do you feel stressed (tense, restless, nervous, or anxious, or unable to sleep at night)? [id number] Information not available 12/15/2023 Do you have difficulty concentrating, remembering or making decisions? No Information no t available 12/15/2023 Family History Nothing Reported. Medical History No medical history recorded. Immunizations Vaccine Type Date Status Note Provider Nam e and Address Organization Details Recorded Time zoster live 7 completed Not Available [facility] 12/02/2023 01:31:28 Tdap 7 completed Not Available [facility] 12/02/2023 01:31:28 pneumococcal polysaccharide PPV23 2 completed Not Available [facility] 12/02/2023 01:31:28 DT (pediatric) 8 completed Not Available [facility] 12/02/2023 01:31:28 DT (pediatric) 7 completed Not Available [facility] 12/02/2023 01:31:28 COVID-19, mRNA, LNP-S, PF, 100 mcg/0.5mL dose or 50 mcg/0.25mL dose 1 completed Not Available [facility] 12/02/2023 01:31:28 COVID-19, mRNA, LNP-S, PF, 100 mcg/0.5mL dose or 50 mcg/0.25mL dose 1 completed Not Available [facility] 12/02/2023 01:31:28 Past Encounters Encounter ID Performer Location Encounter Start Date Encounter Closed Date Diagnosis/Indication Diagnosis SNOMED-CT Code Diagnosis ICD10 Code Diagnosis IMO Codes Diagnosis Note [id number] Cresencio Barbosa MD [facility] IM[facility]16 [address] [facility],[address] [place] [address] 04/13/2023 13:04:59 04/13/2023 14:26:23 Dizziness 155082406 R42 Due to his persistent symptoms we will send him for vestibular therapy hopefully to resolve his vertigo symptoms completely . We will also send him for CT scan of the head to rule out normal pressure hydrocepha cliff and other possible cerebral abnormalit ies. We will have him come back in 2 months to see if he is back to normal. 05-04-23: (HUONG) reported normal labs awaiting CT scan results which we have not received yet. Await callback wondering if patient is doing much better.. ETL Hypertensive disorder 38 844862 I10 Well-contr olled on atenolol 100 mg daily and amlodipine 10 mg daily we will continue present dose and hopefully he can lose some more weight and we reviewed his salt control once again. Obstructiv e sleep apnea syndrome 21682961 G47.33 He continues to do well using his CPAP machine encourage patient to continue to lose more weight to improve his sleep issues. Seizure disorder 1444518 02 G40.909 No recent episodes on Tegretol 400 mg twice a day we will check a level today. [id number] [facility]enc[facility] Barbosa [facility] [place] [address] 06/12/2023 08:41:38 06/12/2023 11:24:51 Dizziness 328063835 R42 Symptoms have resolved we will hold off on further work-up but he will call us if symptoms restart once again he will monitor for symptoms if he does lose weight because he might be hypotensiv e do to his 2 blood pressure medicines. Hypertensive disorder 38 174122 I10 Still well controlled on atenolol 100 mg daily and amlodipine 10 mg daily. We will continue to monitor for hypotensio n specially if he does lose some weight. Seizure disorder 2398337 02 G40.909 No recent episodes on Tegretol 400 mg twice a day we will check a level today. [id number] Cresencio Barbosa MD [facility] [place] [address] 12/15/2023 07:58:51 12/15/2023 09:04:25 Adult health examination 856925802 Z00.00 [place] is stable but noted weight [...] endoscopy every 3 years. Hypertensive disorder 38 352091 I10 Well-contr olled today. We will have him recheck his blood pressure at home and recorded and follow-up in 1 month. We will continue amlodipine 10 mg daily and atenolol 100 mg daily. Pain of ri ght ankle joint 4448615014 4797828 M25.571 Possible gout and also osteoarthr itis. We will obtain an x-ray to rule out severe arthritis. 12-26-23: (LM) reported x-ray showing calcific tendinosis of the Achilles tendon. Await callback for further management if needed or possible Ortho consult. ETL Seizure disorder 9388840 02 G40.909 No recent episodes on Tegretol 400 mg twice a day we will check a level today. Mai shelley with dysplasia 9367670910 519527 K22.719 Has regular follow-up with GI for EGD last 2020 scheduled for another 1 in April of this year. Hypercholesterolemia 136 [address]215 E78.00 Maintain simvastati n 40 mg daily and we will check cholestero l and liver function test. Chronic go uty arthritis 72869382 M1A.0790 Will check uric acid levels and allopurino l 200 mg daily which we will continue. Reviewed dietary changes are restrictio ns once again. Obstructiv e sleep apnea syndrome 36962158 G47.33 He continues to do well using his CPAP machine encourage patient to continue to lose more weight to improve his sleep issues. [id number] Cresencio Barbosa MD [facility] _[address] [address] 01/18/2024 08:04:35 01/18/2024 08:47:45 Hypertensive disorder 25183489 I10 Still poorly controlled with weight gain. After discussion patient agreed to add losartan 25 mg daily. Will continue amlodipine 10 mg in the morning and atenolol 100 mg at night. Will see him back in a month with blood pressure readings reviewed salt control once again. Calcific t endinitis of right ankle 4159370986 45117 M65.271 Patient declined any orthopedic consults advised to use warm compresses at home and Voltaren gel while at work. Avoid oral NSAIDs due to his blood pressure issues. [id number] MD VIKASH Noriega[facility]_ IM_[address] [place] [address] 02/23/2024 08:03:19 02/23/2024 11:00:45 Hypertensive disorder 55845234 I10 Presently well-contr olled with the addition of losartan 25 mg daily which we will continue. Maintain atenolol 100 mg daily and amlodipine 10 mg daily as well. He will continue to control his salt intake and maintain low impact cardio exercises regularly. Body mass index 30+ - obesity 884402501 E66.9 Very much encouraged by his 5 pound weight loss over the last month. Continue to give him a target of 250 pounds for now hopefully even less. Reviewed caloric control once again. We will see him back in 4 months [id number] Cresencio Barbosa MD [facility] [address] [place] [address] 06/13/2024 08:05:54 06/13/2024 08:33:44 Body mass index 30+ - obesity 192207805 Z68.37 Diet control we encouraged him to continue to lose the weight and low impact cardio exercises. Essential hypertension 52305228 I10 Seems to be doing well on losartan 25 mg daily, amlodipine 10 mg daily and atenolol 100 mg daily. Will continue present dose and encourage continued salt control. Morbid obesity 215242369 E66.01 Right flank pain 9096011 09 R10.9 Possible kidney stones. We will check a urinalysis as well as CBC and CMP. To confirm diagnosis. [id number] Cresencio Barbosa MD [facility] [place] [address] 12/16/2024 13:24:00 12/16/2024 15:35:09 Viral upper respiratory tract infection 764764855 J06.9 217057 Will have him start Zyrtec 10 mg at bedtime to add to his usual intake of Claritin in the morning. Will also have him check himself for COVID and call us if it is positive. Will hold off on any antibiotic s for now but increase bedrest and fluids. Also monitor for productive cough and shortness of breath. Morbid obesity 754371855 E66.01 Body mass index 30+ - obesity 816346864 Z68.37 Seizure disorder 0179567 02 G40.909 Essential hypertension 91601466 I10 [id number] Cresencio Barbosa MD [facility]_ [facility] [place] [address] 12/31/2024 15:24:35 01/02/2025 23:43:17 Adult health examination 586850089 Z00.00 Bismark is doing generally well and [...] ETL Screening for malignant neoplasm of colon 324654436 Z12.11 Barretts e sophagus with dysplasia 5642091606 424607 K22.719 Will continue to use omeprazole 20 mg twice a day and we reviewed dyspepsia diet changes. Seizure disorder 0575902 02 G40.909 Well-contr olled on carbamazep ine 400 mg 3 times a day which we will continue and check levels. Body mass index 30+ - obesity [id number] Z68.37 Continue to teach caloric restrictio n and start low impact cardio exercises. Will check TSH level. Hypertensive disorder [id number] I10 Presently well-contr olled with losartan 25 mg daily which we will continue. Maintain atenolol 100 mg daily and amlodipine 10 mg daily as well. He will continue to control his salt intake and maintain low impact cardio exercises regularly. 06-23-25: Patient reports feeling lightheade d constantly when he stands up because he has lost almost 20 pounds over the past few months. We will cut back atenolol to 50 mg daily and maintain losartan at 25 mg daily and amlodipine at 10 mg daily. He has a follow-up with us in 2 weeks. ETL Chronic go uty arthritis [id number] M1A.0790 Will check uric acid levels and continue allopurino l 200 mg daily. Reviewed dietary changes are restrictio ns once again. Obstructiv e sleep apnea syndrome [id number] G47.33 He continues to do well using his CPAP machine encourage patient to continue to lose more weight to improve his sleep issues. [id number] Cresencio Barbosa MD [email or web address] [place] [id number] 07/08/2025 15:55:18 07/08/2025 16:35:19 Hypertensive disorder [id number] I10 Due to persistent high blood pressure [...] and blood pressure levels. ETL Hypercholesterolemia [id number] E78.00 Maintain simvastati n 40 mg daily and we will check cholestero l and liver function test. Body mass index 30+ - obesity [id number] Z68.37 Very encouraged by his recent weight loss and hopefully he can sustain it. Chronic go uty arthritis [id number] M1A.0790 Will check uric acid levels and [...] ID Guarantor Name 07/08/2025 1 MEDICARE B-CT: TEGAN Padron [id number] Ronnie Vegassckeo 07/05/2025 2 [place]) [id number] Ronnie Padron [id number] Ronnie Garciao 05/25/2023 1 [facility] [id number] Ronnie Garciao [id number] Ronnie Vegassco 07/01/2023 2 [facility] Ronnie Rodrigueziancesco [id number] Ronnie Vegassco 12/15/2023 1 [facility] ([facility]) [id number] Ronnie Padron [id number] Ronnie Padron Notes Date Note Type Note [...] is regulated by neurology. Cresencio Barbosa MD [address] [place] [address], [address] [place] [address], [id number], [place] - [facility] 02/23/2024 08:28:00 4 text/html He comes [...] stones in the past. Cresencio Barbosa MD [address] [place] [address], [address] [place] [address], [place], [phone], [place] - [facility] 06/13/2024 08:33:22 5 text/html Virtual VisitReported by PatientIdentity:For patient identity verified by, patient reportsknown established patient. For i shared my identity credentials with the patient, patient reportsyes.Location:For patient is currently located in the state of, patient [place] For patient location, patient reportshome. For provider [...] with mild fever. He has been taking [id number] cough medicine with no improvement. His recently had an episode of viral URI which progressed to COPD exacerbation. He is did test for COVID which was negative. Patient has no history of asthma or smoking but has history of seasonal allergic rhinitis. Cresencio Barbosa MD [address] [place] [address], [address] [place] [address], [place], [phone], [place] - [facility] 12/16/2024 15:13:09 5 text/html Medicare Annual [...] no acute issues recently. Cresencio Barbosa MD [address] [place] [address], [address], [place], [phone], [place] - [facility] 06/23/2025 13:14:48 5 text/html Ronnie is [...] little bit more frequently. Cresencio Barbosa MD [address] [place] [address], [address] Floor, [place], [phone], [place] - [facility] 09/16/2025 13:14:16
== END 2025-10-27 11:59 | disposition home or self-care (01) ==
LOC: HO.HSM 10:48
PROVIDERS: PCP Internal Medicine; Visit Provider Nurse Practitioner
DX: R41.3 Other amnesia (principal); G40.909 Epilepsy, unspecified, not intractable, without status epilepticus; R26.89 Other abnormalities of gait and mobility
CPT/HCPCS: 99214

== ENCOUNTER → 2025-10-27 10:47 | Outpatient (BNVA) | payer MEDICARE, SELFPAY | PROVIDERS: PCP Internal Medicine; Visit Provider Nurse Practitioner | DX: G40.909 Epilepsy, unspecified, not intractable, without status epilepticus (principal); R26.89 Other abnormalities of gait and mobility; G47.33 Obstructive sleep apnea (adult) (pediatric); Z99.89 Dependence on other enabling machines and devices; Z91.81 History of falling | CPT/HCPCS: 99212 ==